=== PATIENT | male | born 1980 | race Two or more races ===

== ENCOUNTER 2024-02-29 02:51 | Emergency (ER) | payer MEDICAID, SELFPAY ==
[2024-02-29 02:52] VITALS: BMI 27.3
[2024-02-29 03:36] VITALS: BP 144/85; PULSE 97; RESP 18; TEMP 36.8; O2SAT 98
--- NOTE | 2024-02-29 03:52 | PD.EDEAR ---
ED Ear RME/HPI General Chief complaint: Ear Stated complaint: RIGHT EAR PAIN AND SWELLING Time Seen by Provider: 02/29/24 03:55 Source: patient Arrival date/time: 02/29/24 02:51 43-year-old male presents emergency department complaining of right ear pain and drainage for 3 days. Patient reports that hard of hearing right ear. Patient denies any fever, chills, sore throat, cough, or any other associated symptom. Mode of arrival: ambulatory Limitations: no limitations Related Data Home Medications ?Medication ?Instructions ?Recorded ?Confirmed metformin 1,000 mg tablet 1,000 mg PO BID #0 tabs 06/05/15 09/19/21 (Glucophage) insulin glargine 100 unit/mL 50 unit subcut QPM 11/08/18 09/19/21 subcutaneous solution (Lantus U-100 Insulin) sitagliptin phosphate 25 mg tablet 25 mg PO QDAY 11/08/18 09/19/21 (Januvia) Previous Rx's ?Medication ?Instructions ?Recorded ibuprofen 600 mg tablet 600 mg PO Q8H PRN fever or pain 12/10/23 #30 tabs amoxicillin 875 mg tablet 875 mg PO BID 5 days #10 tabs 02/29/24 ibuprofen 600 mg tablet 600 mg PO Q8H PRN pain #20 tabs 02/29/24 ofloxacin 0.3 % ear drops 10 drp otic (ear) QDAY 7 days #5 mL 02/29/24 Allergies Allergy/AdvReac Type Severity Reaction Status Date / Time No Known Allergies Allergy Verified 08/10/21 20:57 Review of Systems Review of Systems Systems Reviewed: All systems reviewed, normal except as documented Constitutional Constitutional: Reports system reviewed and no additional complaints, except as documented, Denies body ache(s), Denies chills and Denies fever(s) Eyes Eyes: Reports system reviewed and no additional complaints, except as documented and Denies change in vision ENT Ears, Nose, Mouth, and Throat: Reports system reviewed and no additional complaints, except as documented, Denies disequilibrium, Denies dizziness, Reports ear discharge, Reports otalgia, Denies sore throat and Denies vertigo Cardiovascular Cardiovascular: Reports system reviewed and no additional complaints, except as documented, Denies chest pain and Denies dyspnea Respiratory Respiratory: Reports system reviewed and no additional complaints, except as documented, Denies chest congestion, Denies cough and Denies dyspnea Gastrointestinal Gastrointestinal: Reports system reviewed and no additional complaints, except as documented, Denies abdominal pain, Denies nausea and Denies vomiting Musculoskeletal Musculoskeletal: Reports system reviewed and no additional complaints, except as documented, Denies abnormal gait and Denies arthralgias Integumentary/Breasts Skin/Breast: Reports system reviewed and no additional complaints, except as documented, Denies erythema, Denies rash and Denies wounds Neurologic Neurologic: Reports system reviewed and no additional complaints, except as documented, Denies abnormal gait, Denies disequilibrium, Denies dizziness and Denies vertigo Past Medical History Past Medical History CARDIAC: Negative Cardiac Disorders or Congestive Heart Failure RESPIRATORY: Negative Chronic Obstructive Pulmonary Disease (COPD) or Asthma GENITOURINARY: Negative Renal Disease ENDOCRINE: Positive Diabetes Mellitus Type 1 and Diabetes Mellitus Type 2 HEMATOLOGIC: Negative Sickle Cell Disease Social History SMOKING STATUS: Current every day smoker ED Exam General Limitations: Present no limitations General appearance: Present alert and in no apparent distress Head Head exam: Present atraumatic Eye Eye exam: Present normal appearance, PERRL and EOMI ENT ENT exam: Present normal exam, normal oropharynx and mucous membranes moist Expanded ENT Exam External ear exam: Present pain with movement and external tenderness TM/Canal exam: Right TM: erythema, bulging, canal discharge and canal tenderness Neck Neck exam: Present normal inspection, full ROM and trachea midline Chest Chest inspection: Present normal inspection and symmetric chest wall rise Respiratory Respiratory exam: Present normal lung sounds bilaterally Cardiovascular Cardiovascular exam: Present regular rate, normal rhythm and normal heart sounds Abdominal Exam Abdominal exam: Present soft and normal bowel sounds Extremities Exam Extremities exam: Present normal inspection and full ROM Back Exam Back exam: Present normal inspection and full ROM Neurological Exam Neurological exam: Present alert, oriented X3 and CN II-XII intact Psychiatric Psychiatric exam: Present normal affect and normal mood Skin Skin exam: Present warm, dry, intact and normal color Course Quality Measures none Orders Category Date Time Status Ketorolac Inj [Toradol Inj] Med 02/29/24 03:52 Discontinued 30 mg IM X1 ONE Vital Signs Vital signs: Vital Signs Temperature 98.2 F 02/29/24 03:36 Pulse Rate 97 02/29/24 03:36 Respiratory Rate 18 02/29/24 03:36 Blood Pressure 144/85 H 02/29/24 03:36 Pulse Oximetry (%) 98 02/29/24 03:36 Oxygen Delivery Method Room Air 02/29/24 03:36 98% room air within normal limits Ear MDM Narrative MDM Narrative:: 43-year-old male presents emergency department complaining of right ear pain and drainage for 3 days. Patient reports that hard of hearing right ear. Patient denies any fever, chills, sore throat, cough, or any other associated symptom. Patient appears nontoxic and is hemodynamic stable. ENT exam consistent with otitis externa and otitis media with tympanic membrane erythematous and bulging. Patient will be treated with oral and otic antibiotics. Patient given pain medication and instructed to follow-up with primary care provider for reevaluation of affected ear and 3 to 4 days. Patient data External records reviewed:: [facility] previous records Clinical information provided by:: patient Social determinants that could affect healthcare access:: none Patient has the following chronic illnesses:: See chart How is presenting disease/condition affected by chronic disease/condition?: uneffected by Evaluation data The following diagnostics were reviewed and interpreted by me:: other (specify) (n/a) Lab and/or radiology exams considered but not ordered:: N/A Interpretation Summary: n/a Medications / Prescriptions Medications or Prescriptions considered but not ordered:: Ordered Medication administrations:: Medication Administration History Discontinued Medications Ketorolac Tromethamine (Ketorolac Inj 60 Mg/2 Ml Vial) 30 mg IM X1 ONE Stop: 02/29/24 03:53 Last Admin: 02/29/24 04:11 Dose: 30 mg Documented By: EE given Consultations Consultation(s) initiated? (list below): No Diagnosis Ear Differential Diagnosis: otitis externa and otitis media Most likely diagnosis given after review of the tests above:: Otitis media Otitis externa Admission Indicated Admission indicated?: not indicated Admission Request Was there a request for admission?: No Disposition Plan Disposition Plan: Discharge Discharge Attestation Discharge Attestation: The patient and all family members were given an opportunity to ask questions and understood the discharge instructions. Discharge instructions specifically effects, indications for sooner follow up or return to the emergency department, and the expected course of current diagnosis. Patient condition: Stable Discharge Plan Plan Patient Disposition: HOME (Self Care) Disposition Comment: Stable Prescriptions/Referrals Prescriptions/Med Rec: New ofloxacin 0.3 % drops 10 drp otic (ear) QDAY 7 Days Qty: 5 0RF amoxicillin 875 mg tablet 875 mg PO BID 5 Days Qty: 10 0RF ibuprofen 600 mg tablet 600 mg PO Q8H PRN (Reason: pain) Qty: 20 0RF No Action metformin [Glucophage] 1,000 MG tablet 1,000 mg PO BID Qty: 0 insulin glargine [Lantus U-100 Insulin] 100 unit/mL Solution 50 unit SUBCUT QPM Januvia 25 mg Tablet 25 mg PO QDAY ibuprofen 600 mg tablet 600 mg PO Q8H PRN (Reason: fever or pain) Qty: 30 0RF Problem List Clinical Impression: Otitis externa, Otitis media Patient/Caregiver Discharge Instructions Discharge Activity: activity as tolerated Education Materials: Common Middle Ear Problems Additional Instructions: Take medication as prescribed. Take ibuprofen or Tylenol as needed for pain. Follow-up with primary care provider in 2 to 3 days for reevaluation of right ear. Return to emergency department for any worsening symptoms or as needed. Print Language: Irish Stand Alone Forms: Malena Award Info., Work/School Release, Patient Portal Info Letter PA/YULI Supervising Physician GE/YULI Supervising Physician: Dr. Mccarthy
[2024-02-29] MEDS: KETOROLAC INJ 60 MG/2 ML VIAL 30 MG IM (04:11)
== END 2024-02-29 04:14 | disposition home or self-care (01) ==
LOC: SERX 04:15
PROVIDERS: Emergency Provider Emergency Medicine; PCP Physician Assistant
DX: H60.91 Unspecified otitis externa, right ear (principal)
CPT/HCPCS: 96372; 99283; J1885

== ENCOUNTER 2024-04-01 07:25 | Emergency (ER) | payer MEDICAID, SELFPAY ==
[2024-04-01 07:36] VITALS: BP 159/93; PULSE 114; RESP 18; TEMP 37.7; O2SAT 97; BMI 26.5
--- NOTE | 2024-04-01 07:51 | PD.EDRME ---
Rapid Medical Screening Exam RME Arrival date/time: 04/01/24 07:25 This is a 43-year-old male that comes in with complaints of left flank pain left lower abdominal pain. Patient also complains of some dysuria. Patient reports that he was recently seen here for ear infection and URI symptoms. Patient states that is better. Patient reports a history of diabetes and high blood pressure. I have greeted and performed a focused initial assessment of this patient. Initial appropriate labs ordered at this time. A comprehensive ED assessment and evaluation of the patient and analysis of all test and completion of medical decision making process will be conducted by additional ED provider. Chief Complaint: Back Pain/Injury Time Seen by Provider: 04/01/24 07:30 Vital signs: Vital Signs Temperature 99.8 F 04/01/24 07:36 Pulse Rate 114 H 04/01/24 07:36 Respiratory Rate 18 04/01/24 07:36 Blood Pressure 159/93 H 04/01/24 07:36 Pulse Oximetry (%) 97 04/01/24 07:36 Oxygen Delivery Method Room Air 04/01/24 07:36
[2024-04-01] MEDS: ONDANSETRON ODT 4 MG TABRAP PO (08:11)
[2024-04-01] MEDS: KETOROLAC INJ 60 MG/2 ML VIAL IM (08:13)
[2024-04-01 08:59] LABS: Collection Type, Urine Voided; Squamous Epithelial Cell,Urine 0 /hpf (0-5)
[2024-04-01 08:59] LABS: Alanine Aminotransferase 18 U/L (10-49); Albumin/Globulin Ratio 1.4 (1.2-2.2); Alkaline Phosphatase 62 U/L (46-116); Anion Gap 9 (7-16); Aspartate Amino Transferase 17 U/L (0-34); BUN/Creatinine Ratio 13 Ratio (12-20); Bilirubin,Total 0.3 mg/dL (0.3-1.2); Blood Urea Nitrogen 10 mg/dL (9-23); Calcium 9.4 mg/dL (8.3-10.6); Calcium (Corrected) 9.4 mg/dL (8.5-10.1); Carbon Dioxide 26.3 mMol/L (20.0-31.0); Chloride 105 mMol/L (98-107); Creatinine (Component) 0.8 mg/dL (0.6-1.3); Estimated Creatinine Clearance 96.8 mL/min (>60); Globulin 2.8 gm/dL (2.3-3.5); Glucose 190 mg/dL (74-106); Lipase 39 U/L (12-53); Osmolality,Calculated 283 (275-295); Potassium 4.1 mMol/L (3.4-5.1); Sodium 140 mMol/L (136-145); Total Protein 6.8 gm/dL (5.7-8.2); eGFR > 60 See Note
[2024-04-01 09:03] LABS: Basophils # (Auto) 0.1 Thou/mm3 (0.0-0.2); Basophils % (Auto) 1 % (0-2.5); Eosinophils % (Auto) 13 % (0-10); Hematocrit 41.7 % (41.0-53.0); Hemoglobin 14.2 g/dL (13.5-16.0); Immature Granulocytes % (Auto) 0 % (0-0); Immature Granulocytes Auto 0.02 Thou/mm3 (0.00-0.00); Lymphocytes # (Auto) 2.1 Thou/mm3 (1.0-4.8); Lymphocytes % (Auto) 29 % (10-50); Mean Corpuscular HGB Conc 34.1 g/dl (31.0-37.0); Mean Corpuscular Hemoglobin 24.8 pg (25.0-35.0); Mean Corpuscular Volume 73 fL (80-100); Monocytes # (Auto) 0.8 Thou/mm3 (0.0-0.8); Monocytes % (Auto) 10 % (0-12); Neutrophils # (Auto) 3.4 Thou/mm3 (1.8-7.7); Neutrophils % (Auto) 47 % (37-80); Nucleated Red Blood Cell % 0 /100 WBC (0); Platelet Count 344 Thou/mm3 (140-440); RDW Standard Deviation 32.4 fL (35.1-43.9); Red Blood Count 5.73 Miln/mm3 (4.50-5.90); White Blood Count 7.3 Thou/mm3 (3.8-10.6)
[2024-04-01 11:02] LABS: Bilirubin,Urine Negative (Negative); Blood,Urine Negative (Negative); Clarity,Urine Clear (Clear/Hazy); Color,Urine Lt-Yellow (Lt Yel-Yel); Culture Indicated,Urine Not Indicated; Glucose, Urine 3+ (Negative); Ketones,Urine Negative (Negative); Leukocyte Esterase,Urine Negative (Negative); Nitrite,Urine Negative (Negative); PH,Urine 5.5 (5.0-7.0); Protein,Urine Trace (Neg - Trace); RBC,Urine 3 /hpf (0-3); Specific Gravity,Urine 1.023 (1.001-1.035); Urobilinogen,Urine Negative mg/dL (0.0-1.0); WBC,Urine 1 /hpf (0-5)
[2024-04-01 11:48] VITALS: BP 110/75; PULSE 90; RESP 17; TEMP 36.4; O2SAT 97
--- NOTE | 2024-04-01 12:02 | XR_ITS ---
Examination: CT abdomen with intravenous contrast CT pelvis with intravenous contrast 2-D coronal reconstructions 2-D sagittal reconstructions Date and time of exam:April 01, 2024 1247 hrs. Indications: Left flank pain beginning 2 days ago. CTDI: vol (mGy) 12.40 DLP: (mGycm) 545 Technique: Multiple axial sections of the abdomen and pelvis have been obtained. 64 slice high-resolution scanner used. 3 mm axial sections have been obtained, post intravenous injection 60 cc [id number] 2-D sagittal, coronal reconstructions obtained. Low dose protocols were performed. One or more of the following dose reduction techniques were used; automated exposure control, adjustment of the mA and/or KV according to patient size, use of iterative reconstruction technique. Findings: Pneumonia left base with mild to moderate left pleural fluid Fatty infiltration throughout the liver Contracted gallbladder No pancreatic or adrenal mass Multiple 1 to 2 mm right renal calculi, no hydronephrosis or ureteral calculi, 1 mm left renal calculus Aorta normal size No bowel obstruction Normal appendix No diverticulitis No significant prostatomegaly Urinary bladder wall is thickened up to 6 mm no bladder calculi Moderate osteopenia Impression: Tiny bilateral renal calculi, no hydronephrosis or ureteral calculi Normal appendix Thickened urinary bladder wall, cystitis pattern
--- NOTE | 2024-04-01 12:03 | PD.EDABDPN ---
ED Abdominal Pain RME/HPI General Chief Complaint: Back Pain/Injury Stated complaint: LEFT FLANK PAIN Time seen by provider: 04/01/24 07:30 Arrival date/time: 04/01/24 07:25 RME / HPI RME / HPI narrative: 43-year-old male patient with significant history of hypertension diabetes mellitus, came in for evaluation regarding left lower quadrant pain radiating to the left flank area, described as dull ache, severity moderate. Patient denies any fever denies any vomiting denies any hematuria frequency diarrhea or constipation. Pain has been ongoing for the last 2 days. No medication was taken prior travel. Related Data Home Medications ?Medication ?Instructions ?Recorded ?Confirmed metformin 1,000 mg tablet 1,000 mg PO BID #0 tabs 06/05/15 09/19/21 (Glucophage) insulin glargine 100 unit/mL 50 unit subcut QPM 11/08/18 09/19/21 subcutaneous solution (Lantus U-100 Insulin) sitagliptin phosphate 25 mg tablet 25 mg PO QDAY 11/08/18 09/19/21 (Januvia) Previous Rx's ?Medication ?Instructions ?Recorded ibuprofen 600 mg tablet 600 mg PO Q8H PRN fever or pain 12/10/23 #30 tabs ibuprofen 600 mg tablet 600 mg PO Q8H PRN pain #20 tabs 02/29/24 ketorolac 10 mg tablet 10 mg PO Q8H PRN pain 5 days #20 04/01/24 tabs Allergies Allergy/AdvReac Type Severity Reaction Status Date / Time No Known Allergies Allergy Verified 04/01/24 07:31 Review of Systems Review of Systems Narrative Review of Systems: Review of system reviewed and within normal limits except mentioned in HPI ED Exam Narrative Physical exam: VITAL SIGNS: Reviewed. GENERAL APPEARANCE: Alert and interactive, follows commands, no acute distress, HEAD AND FACE: Non-traumatic. ENT: PERRL, pink conjunctivitis, eyelid no trauma, Mucous membrane moist. NECK: Supple, nontender, no nuchal rigidity. CHEST: No tenderness, no crepitus, no paradoxical movement, no retractions. LUNGS: Clear, well ventilated, symmetric, no rales, no wheezing, no ronchi, no stridor, good breath sounds bilaterally. HEART: Regular rate, regular rhythm, no murmur, no gallops. ABDOMEN: Soft, positive bowel sounds, nondistended, no guarding, left lower quadrant tenderness, left flank tenderness, no rebound, no masses, RECTAL: Deferred. GENITAL: Deferred. NEUROLOGICAL: Gross motor function intact sensory function intact, Appropriate for age. MUSCULOSKELETAL: low back nontender, full range of motion. EXTREMITIES: Nontender, full range of motion. SKIN: Color pink, dry, no rash, no lacerations, no abrasions, no contusions. LYMPHATICS: Deferred. Course Quality Measures none Orders Category Date Time Status CT Screening NOW Care 04/01/24 12:[address] abdomen pelvis w con Stat Exams 04/01/24 12:02 Completed CBC Stat Lab 04/01/24 08:25 Completed Comprehensive Metabolic Panel Stat Lab 04/01/24 08:25 Completed Lipase Stat Lab 04/01/24 08:25 Completed Urinalysis, C/S if Indicated Stat Lab 04/01/24 08:44 Completed HYDROcodone*/APAP 5/325 [[place] 5/325] Med 04/01/24 15:05 Discontinued 1 tab PO X1 ONE Ketorolac Inj [Toradol Inj] Med 04/01/24 07:51 Discontinued 60 mg IM X1 ONE Ondansetron Odt [Zofran Odt] Med 04/01/24 07:51 Discontinued 4 mg PO X1 ONE Vital Signs Vital signs: Vital Signs Temperature 99.8 F 04/01/24 07:36 Pulse Rate 114 H 04/01/24 07:36 Respiratory Rate 18 04/01/24 07:36 Blood Pressure 159/93 H 04/01/24 07:36 Pulse Oximetry (%) 97 04/01/24 07:36 Oxygen Delivery Method Room Air 04/01/24 07:36 Abdominal Pain MDM MDM Narrative MDM Narrative:: 43-year-old male patient with significant history of hypertension diabetes mellitus, came in for evaluation regarding left lower quadrant pain radiating to the left flank area, described as dull ache, severity moderate. Patient denies any fever denies any vomiting denies any hematuria frequency diarrhea or constipation. Pain has been ongoing for the last 2 days. No medication was taken prior travel. Patient's laboratory workup all came back normal urinalysis no UTI no hematuria. CT scan of the abdomen and pelvis showed tiny calculi noticed no obstruction no hydronephrosis noted results discussed with the patient. Patient was given Toradol and [place] with complete to his most showed of symptoms. Patient appears nontoxic and hemodynamically stable. Patient discharged home and instructed to follow-up with primary care provider in 24 to 48 hours. Instructed to return to the emergency department immediately if worsening of symptoms Patient data External records reviewed:: None Clinical information provided by:: none Social determinants that could affect healthcare access:: none Patient has the following chronic illnesses:: Hypertension diabetes mellitus How is presenting disease/condition affected by chronic disease/condition?: exacerbated by Evaluation data The following diagnostics were reviewed and interpreted by me:: lab results and radiology exam(s) Lab and/or radiology exams considered but not ordered:: None Interpretation Summary: See results in MDM Medications / Prescriptions Medications or Prescriptions considered but not ordered:: None Medication administrations:: Medication Administration History Discontinued Medications Hydrocodone Bitart/Acetaminophen (Hydrocodone/Apap 5/325 Tablet) 1 tab PO X1 ONE Stop: 04/01/24 15:06 Ketorolac Tromethamine (Ketorolac Inj 60 Mg/2 Ml Vial) 60 mg IM X1 ONE Stop: 04/01/24 07:52 Last Admin: 04/01/24 08:13 Dose: 60 mg Documented By: ED Ondansetron HCl (Ondansetron Odt 4 Mg Tabrap) 4 mg PO X1 ONE; Protocol Stop: 04/01/24 07:52 Last Admin: 04/01/24 08:11 Dose: 4 mg Documented By: ED Tejas Boo and Greyson Consultations Consultation(s) initiated? (list below): No Diagnosis Differential diagnosis abdominal pain: abdominal pain, calculus of kidney and pancreatitis Most likely diagnosis given after review of the tests above:: Renal colic, tiny calculi renal Admission Indicated Admission indicated?: not indicated Admission Request Was there a request for admission?: No Disposition Plan Disposition Plan: Admit Discharge Plan Plan Patient Disposition: HOME (Self Care) Disposition Comment: stable Prescriptions/Referrals Prescriptions/Med Rec: New ketorolac 10 mg tablet 10 mg PO Q8H PRN (Reason: pain) 5 Days Qty: 20 0RF No Action metformin [Glucophage] 1,000 MG tablet 1,000 mg PO BID Qty: 0 insulin glargine [Lantus U-100 Insulin] 100 unit/mL Solution 50 unit SUBCUT QPM Januvia 25 mg Tablet 25 mg PO QDAY ibuprofen 600 mg tablet 600 mg PO Q8H PRN (Reason: fever or pain) Qty: 30 0RF ibuprofen 600 mg tablet 600 mg PO Q8H PRN (Reason: pain) Qty: 20 0RF Referrals: César Vasquez PA-C [Primary Care Provider] - In 1 week Problem List Clinical Impression: Renal colic, Calculus, renal Patient/Caregiver Discharge Instructions Discharge Activity: activity as tolerated Education Materials: ED Kidney Stone w/ Colic Additional Instructions: Thank you for the opportunity for serving you today. You are stable for discharged . You are advised to: Follow-up with your PCP in 1 to 2 days and as per referral to urologist Return to ED for worsening of symptoms Increase oral fluids Take medication as prescribed Print Language: Bangladeshi Stand Alone Forms: Malena Award Info., Patient Portal Info Letter GE/YULI Supervising Physician BRUCE Supervising Physician: MD Gemma
[2024-04-01 12:24] VITALS: BP 111/76; PULSE 80; RESP 20; TEMP 36.2; O2SAT 95
[2024-04-01 15:10] VITALS: BP 111/76; PULSE 92; RESP 17; TEMP 36.4; O2SAT 97
== END 2024-04-01 15:23 | disposition home or self-care (01) ==
PROVIDERS: Nurse Practitioner Family; Emergency Provider Emergency Medicine; PCP Physician Assistant
DX: N20.0 Calculus of kidney (principal); I10 Essential (primary) hypertension; E11.9 Type 2 diabetes mellitus without complications
CPT/HCPCS: 36415; 74177; 80053; 81001; 83690; 85025; 96372; 99285; A4649; J1885; Q0162; Q9967

== ENCOUNTER 2024-05-01 06:40 | Emergency (ER) | payer MEDICAID, SELFPAY ==
[2024-05-01] VITALS (8 sets, daily range): BP systolic 122–159; BP diastolic 71–96; PULSE 87–100; RESP 16–25; TEMP 36.6–36.9; O2SAT 96–100; BMI 29.2
--- NOTE | 2024-05-01 | XR_ITS ---
Examination: AP chest single view Technique one AP upright portable chest single view Exam date and time: May 01, 2024 1137 hours Comparison May 01, 2024 0712 hours INDICATIONS: Postthoracentesis. FINDINGS: Marked decrease in left pleural fluid Significant pneumonia left base Right lung clear Normal heart size IMPRESSION: No pneumothorax post thoracentesis Significant pneumonia left base
--- NOTE | 2024-05-01 | XR_ITS ---
Examination: MRI of brain without intravenous contrast. MRI brain with intravenous contrast. Date and time of exam:May 01, 2024 1608 hours INDICATIONS: Bilateral ear pain 2 months with drainage, diagnosis sarcoidosis Technique: Multiple axial and sagittal images of the brain to been obtained. Siemens high-resolution 1.52 January short bore scanner utilized. Sagittal sections, T1 weighted images, TR 500, TE 14, are performed. Axial sections proton-density and T2-weighted images have been obtained. Inversion recovery axial images, TR 9260, TE 111, TR 2500. Diffusion weighted images, axial sections, TR 4800, TE 128, B value 1000. Axial sections, ADC map, TR 4800, TE 128. Axial and coronal images were also obtained post 13 cc gadolinium administered intravenously. Findings:: Enlargement of the sella turcica is not present. The optic chiasm and infundibular stalk are not remarkable. There is no localized enlargement of the medulla or miki. Fourth ventricle and cerebellar tonsils appear normal in position. No subacute area of hemorrhage density is seen. Fourth ventricle is midline. Mass in the cerebellopontine angle region is not evident. 7th and 8th nerve complexes exhibit symmetry Globes are symmetrical Orbital musculature including medial lateral rectus muscles do not exhibit abnormality Increased white matter signal is not seen Effacement of the cortical sulcal markings is not identified. Mass effect upon the ventricular system is not identified. Diffusion-weighted images demonstrate no focus of restricted diffusion Contrast images demonstrate minimal right mastoid enhancement Impression: Negative for acute hemorrhage, mass effect or midline shift No acute infarct No MR findings of demyelinating disease Right mastoiditis Given the patient's presentation, consider CT scan middle inner ear follow-up to best assess for right otitis media, acquired right cholesteatoma
--- NOTE | 2024-05-01 06:57 | XR_ITS ---
Examination: PA lateral chest 2 views Technique: Upright PA lateral chest 2 views Exam date and time: April 27, 2024 at 0712 hrs. Comparison December 10, 2023 Indications: Shortness of breath chest pain beginning one month ago. Findings: Large left pleural effusion Cardiac contour is partially obscured by this effusion Pneumonia and atelectasis in the left mid and lower lung zone Right lung clear Impression: Large left pleural effusion
--- NOTE | 2024-05-01 06:58 | EDRME_ITS ---
Rapid Medical Screening Exam [facility] Arrival date/time: 05/01/24 06:40 43-year-old male with a history of sarcoidosis, type 2 diabetes presents to the emergency room with a chief complaint of cough and shortness of breath x 1 month. Patient states he has not seen a specialist due to a lack of appointments and has not took his medication for this. Patient states he also has bilateral ear pain and drainage but states he is waiting for his appointment from his ENT specialist. I have greeted and performed a focused initial assessment of this patient. A comprehensive ED assessment and evaluation of the patient, analysis of all test results, and completion of the medical decision making process will be conducted by additional ED providers. Chief Complaint: Flu Like Symptoms Time Seen by Provider: 05/01/24 06:45 Vital signs: Vital Signs Temperature 98.0 F 05/01/24 06:47 Pulse Rate 100 05/01/24 06:47 Respiratory Rate 20 05/01/24 06:47 Blood Pressure 157/91 H 05/01/24 06:47 Pulse Oximetry (%) 98 05/01/24 06:47 Oxygen Delivery Method Room Air 05/01/24 06:47 Vital signs reviewed by provider: Yes
--- NOTE | 2024-05-01 07:00 | EKG_ITS ---
[facility] Test Date: 2024-05-01 Pat Name: TIBURCIO DEL ROSARIO Department: Room: - Gender: Male Bottom Liner: : 1980 Requested By: Robbie Manzo Order Number: [id number] Reading MD: Robbie Manzo Measurements Intervals [place] Rate: 103 P: 57 NC: 122 QRS: 56 QRSD: 72 T: 43 QT: 316 QTc: 415 Interpretive Statements SINUS TACHYCARDIA ABNORMAL RHYTHM ECG Compared to ECG 09/19/2021 16:01:34 Short NC interval no longer present /store/S0/[id number]/ecg/[id number].pdf
[2024-05-01 08:14] LABS: Basophils # (Auto) 0.1 Thou/mm3 (0.0-0.2); Basophils % (Auto) 1 % (0-2.5); Eosinophils # (Auto) 0.8 Thou/mm3 (0.0-0.5); Eosinophils % (Auto) 12 % (0-10); Hematocrit 38.5 % (41.0-53.0); Immature Granulocytes % (Auto) 0 % (0-0); Immature Granulocytes Auto 0.01 Thou/mm3 (0.00-0.00); Lymphocytes # (Auto) 2.1 Thou/mm3 (1.0-4.8); Lymphocytes % (Auto) 31 % (10-50); Mean Corpuscular HGB Conc 33.8 g/dl (31.0-37.0); Mean Corpuscular Hemoglobin 25.2 pg (25.0-35.0); Mean Corpuscular Volume 75 fL (80-100); Monocytes % (Auto) 14 % (0-12); Neutrophils # (Auto) 2.7 Thou/mm3 (1.8-7.7); Neutrophils % (Auto) 41 % (37-80); Nucleated Red Blood Cell % 0 /100 WBC (0); Platelet Count 295 Thou/mm3 (140-440); RDW Standard Deviation 35.8 fL (35.1-43.9); Red Blood Count 5.16 Miln/mm3 (4.50-5.90); White Blood Count 6.6 Thou/mm3 (3.8-10.6)
[2024-05-01 08:35] LABS: Alanine Aminotransferase 15 U/L (10-49); Albumin, Serum 3.8 gm/dL (3.5-5.0); Albumin/Globulin Ratio 1.4 (1.2-2.2); Alkaline Phosphatase 64 U/L (46-116); Anion Gap 7 (7-16); Aspartate Amino Transferase < 10 U/L (0-34); BUN/Creatinine Ratio 17 Ratio (12-20); Bilirubin,Total 0.4 mg/dL (0.3-1.2); Blood Urea Nitrogen 17 mg/dL (9-23); Calcium 9.2 mg/dL (8.3-10.6); Calcium (Corrected) 9.4 mg/dL (8.5-10.1); Carbon Dioxide 26.7 mMol/L (20.0-31.0); Chloride 104 mMol/L (98-107); Estimated Creatinine Clearance 77.9 mL/min (>60); Globulin 2.8 gm/dL (2.3-3.5); Glucose 174 mg/dL (74-106); Osmolality,Calculated 281 (275-295); Partial Thromboplastin Time 30.5 Seconds (22.0-36.0); Potassium 4.3 mMol/L (3.4-5.1); Prothrombin Time 11.2 Seconds (9.0-12.2); Sodium 138 mMol/L (136-145); Total Protein 6.6 gm/dL (5.7-8.2); Troponin I < 0.002 ng/mL (0.0-0.045); eGFR > 60 See Note
[2024-05-01 08:59] LABS: B-Type Natriuretic Peptide < 20 pg/mL (0-100)
--- NOTE | 2024-05-01 09:35 | XR_ITS ---
Examination: Ultrasound-guided left thoracentesis Ultrasound right hemithorax Ultrasound left hemithorax Exam date and time: May 01, 2024 1202 hours INDICATIONS: Difficulty breathing today, large left pleural effusion on chest x-ray today TECHNIQUE AND FINDINGS: High resolution grayscale sonographic images hemithoraces, large left pleural effusion Informed consent provided. Timeout performed. Skin prepped over the left hemithorax and sterile drape applied maximum sterile barrier technique hand hygiene ultrasound sterile technique 1% lidocaine administered for local anesthesia. Utilizing ultrasonographic guidance 5 Armenian catheter placed in the left pleural space, 1450 cc fluid withdrawn Estimated blood loss 0 cc IMPRESSION: Successful ultrasound-guided left thoracentesis, 1450 cc pleural fluid removed
--- NOTE | 2024-05-01 09:41 | XR_ITS ---
Examination: CT chest with intravenous contrast CT abdomen with intravenous contrast CT pelvis with intravenous contrast 2-D coronal and sagittal reconstructions Time of exam: May 01, 2024 1421 hours Comparison April 01, 2024 INDICATIONS: Difficulty breathing coughing shortness of breath one month CTDI: vol (mGy) : 5.91 DLP: (mGycm): 454 Technique: Multiple axial images of the chest, abdomen and pelvis with intravenous contrast, 3.0 mm slice thickness. Images obtained post intravenous injection Isovue 370 60 cc. 2-D sagittal and coronal reconstructions. Low dose protocols were performed. One or more of the following dose reduction techniques were used; automated exposure control, adjustment of the mA and/or KV according to patient size, use of iterative reconstruction technique. Findings: Mediastinal lymphadenopathy, smaller lymph nodes in the tracheobronchial region compared to the prior study No thoracic aortic aneurysm dilatation No pulmonary artery filling defects Diffuse significant left lung pneumonia Small left pleural effusion No visualized liver or splenic lesion No gallstones No pancreatic or adrenal mass Bilateral subcentimeter renal calculi Aorta in the abdomen normal size No bowel obstruction Normal appendix No diverticulitis Urinary bladder intact No prostatomegaly Mild osteopenia IMPRESSION: Decrease in mediastinal lymphadenopathy compared to the CT chest September 19, 2021 Extensive diffuse left lung pneumonia Bilateral nonobstructing renal calculi
[2024-05-01] MEDS: SODIUM CHLORIDE 0.9% 1000 ML 1,500 ML 1500 ML IV (10:23)
--- NOTE | 2024-05-01 11:50 | EDNOTE_ITS ---
ED SOB =RME/HPI General Chief Complaint: Shortness of Breath/Dyspnea Stated Complaint: COUGH, EAR PAIN Time Seen by Provider: 05/01/24 06:45 Arrival date/time: 05/01/24 06:40 RME / HPI RME / HPI Narrative: 05/01/24 06:40 43-year-old male with a history of sarcoidosis, type 2 diabetes presents to the emergency room with a chief complaint of cough and shortness of breath x 1 month. Patient states he has not seen a specialist due to a lack of appointments and has not took his medication for this. Patient states he also has bilateral ear pain and drainage but states he is waiting for his appointment from his ENT specialist. I have greeted and performed a focused initial assessment of this patient. A comprehensive ED assessment and evaluation of the patient, analysis of all test results, and completion of the medical decision making process will be conducted by additional ED providers. DR. WHITE MAIN ED EVALUATION 43 year old male with history of sarcoidosis and diabetes presents to the ED for evaluation of shortness of breath today. Reportedly his symptoms began 1 month ago and gradually worsening. Today described feeling he is not able to get a deep breath in. Accompanied by a cough. Denies fevers, chills, chest pain, abdominal pain, n/v, or other associated symptoms. Related Data Home Medications ?Medication ?Instructions ?Recorded ?Confirmed metformin 1,000 mg tablet 1,000 mg PO BID #0 tabs 04/2 0/16 09/19/21 (Glucophage) insulin glargine 100 unit/mL 50 unit subcut QPM 09/19/21 subcutaneous solution (Lantus U-100 Insulin) sitagliptin phosphate 25 mg tablet 25 mg PO QDAY 11/0809/19/21 (Januvia) Previous Rx's ?Medication ?Instructions ?Recorded ibuprofen 600 mg tablet 600 mg PO Q8H PRN fever or p ain 12/10/23 #30 tabs ibuprofen 600 mg tablet 600 mg PO Q8H PRN pain #20 t abs 02/29/24 acetaminophen 325 mg tablet 650 mg (2 x 325 mg) PO TID PRN 05/01/24 (Tylenol) pain 7 days #30 tabs albuterol sulfate 90 mcg/actuation 2 puff inhalation Q 6H PRN cough 5 05/01/24 aerosol inhaler days #8.5 grams amoxicillin 875 mg-potassium 1 tab PO BID 7 days #14 t abs 05/01/24 clavulanate 125 mg tablet doxycycline hyclate 100 mg capsule 100 mg PO BID #14 c aps 05/01/24 fluconazole 200 mg tablet 400 mg (2 x 200 mg) PO QDAY 45 05/01/24 days #90 tabs Allergies Allergy/AdvReac Type Severity Reaction Status Date / Time No Known Allergies Allergy Verified 04/01/24 07:31 Review of Systems Review of Systems Narrative Review of Systems: Gen: No fever, no chills, no weight loss EYES: No discharge, no visual changes, no pain HEENT: No ear pain, no congestion, no sore throat PULM: +shortness of breath, + cough CV: No chest pain, no dyspnea on exertion, no palpitations GI: No nausea, no vomiting, no diarrhea, no pain, no constipation : No frequency, no urgency,? no dysuria Musc/skel: No joint pain, no back pain Skin: No rash. Neuro: No weakness, no headache Past Medical History Past Medical History CARDIAC: Positive Hypertension; Negative Cardiac Disorders or Congestive Heart Failure RESPIRATORY: Negative Chronic Obstructive Pulmonary Disease (COPD) or Asthma GENITOURINARY: Negative Renal Disease ENDOCRINE: Positive Diabetes Mellitus Type 2; Negative Diabetes Mellitus Type 1 HEMATOLOGIC: Negative Sickle Cell Disease Social History SMOKING STATUS: Never smoker ED Exam Narrative Physical exam: GENERAL: In general the patient is awake, interactive, in an emergency department gurney, coughing, not in respiratory distress. HEAD/EYES/EARS/NOSE/THROAT: normo-cephalic, atraumatic, mucus membranes are moist.? No cervical tenderness palpation midline.? Supple neck. CARDIOVASCULAR: regular rate and regular rhythm, no murmurs, heart sounds are not distant, strong pulses in all four extremities that are equal and symmetric bilateral upper and lower extremities, normal capillary refill. CHEST/PULMONARY: normal chest rise and fall, no subcutaneous emphysema, decreased breath sounds on the left, good airway movement on the right, normal inspiratory to expiratory ratios without evidence of respiratory distress. ABDOMEN: soft, not tender, no masses appreciated BACK: normal range of motion without pain. NEUROLOGICAL: cranio-facial features are symmetric, moves all four extremities equally without obvious limitations or weakness. EXTREMITY: no tenderness to palpation over the long bones or large joints of the bilateral upper and lower extremities, no joint swelling, no joint erythema, no signs of trauma, no unilateral leg swelling and no peripheral edema. SKIN: warm, dry, well-perfused, no jaundice, no rash, no telangiectasias or petechia. PSYCH: calm, cooperative, no evidence of psychosis or agitation Course Course Course Narrative: chest xray ordered to help determine etiology of shortness of breath. Quality Measures none Orders Category Date Time Status Bedside COVID-19 Antigen Test NOW Care 05/01/24 13:05 Active Bedside Influenza A&B Antigen Test NOW Care 05/01/24 13:[address] Screening NOW Care 05/01/24 09:42 Active EKG (ED ONLY) *Do not use* NOW Care 05/01/24 07:00 Completed Insert IV NOW Care 05/01/24 10:02 Active MRI Screening NOW Care 05/01/24 15:[address] chest abdomen pelvis w Stat Exams 05/01/24 09:41 Completed EKG (ED Only) Stat Exams 05/01/24 07:00 Draft MR head/brain wo/w con Stat Exams 05/01/24 Completed US thoracentesis Stat Exams 05/01/24 09:35 Completed XR chest 1V post procedure Stat Exams 05/01/24 Completed XR chest 2V Stat Exams 05/01/24 06:57 Completed Amylase,Pleural Fluid Stat Lab 05/01/24 13:17 Completed BNP [B-Type Natriuretic Peptide] Stat Lab 05/01/24 07:55 Completed CBC Stat Lab 05/01/24 07:55 Completed CMP [Comprehensive Metabolic Panel] Stat Lab 05/01/24 07:55 Completed Cocci Serology IgM with reflex to IgG [Cocci Serology, Lab 05/01/24 07:55 Completed Unk History] Stat Cocid Sro, CF/ID (UCD) NO CHG* Routine Lab 05/01/24 14:18 Received Glucose,Pleural Fluid Stat Lab 05/01/24 13:17 Completed LDH,Pleural Fluid Stat Lab 05/01/24 13:17 Completed PT [Prothrombin Time with INR] Stat Lab 05/01/24 07:55 Completed PTT [Partial Thromboplastin Time] Stat Lab 05/01/24 07:55 Completed Pleural Fld Cell Count Diff Stat Lab 05/01/24 13:17 Completed Protein Total,Pleural Fluid Stat Lab 05/01/24 13:17 Completed RSV [Respiratory Syncytial Virus Ag] Stat Lab 05/01/24 13:05 Ordered Troponin I Stat Lab 05/01/24 07:55 Completed Albuterol/Ipratr Rt Sanjuana [Duoneb Rt Sanjuana] Med 05/01/24 13:19 Discontinued 3 ml INH X1 ONE DiphenhydrAMINE INJ [Benadryl Inj] Med 05/01/24 17:08 Discontinued 25 mg IVP X1 ONE Fluconazole [Diflucan] Med 05/01/24 16:10 Discontinued 400 mg PO X1 ONE HYDROcodone*/APAP 5/325 [[place] 5/325] Med 05/01/24 14:56 Discontinued 1 tab PO X1 ONE Lidocaine 1% Pf 30 ml [Xylocaine 1% Pf 30 ml] Med 05/01/24 12:07 Discontinued 30 ml .ROUTE .STK-MED ONE MethylPREDNISolone.* [SoluMEDROL Inj] Med 05/01/24 17:09 Discontinued 125 mg IVP X1 ONE Morphine Inj Med 05/01/24 13:19 Discontinued 4 mg IVP X1 ONE Ondansetron Inj [Zofran Inj] Med 05/01/24 13:19 Discontinued 4 mg IV X1 ONE Sodium Chloride 0.9% 1000 ml [Ns] 1,000 ml Med 05/01/24 13:42 Discontinued IV 999 mls/hr Sodium Chloride 0.9% 1000 ml [Ns] 1,500 ml Med 05/01/24 09:32 Discontinued IV 1,500 mls/hr predniSONE Med 05/01/24 06:57 Discontinued 80 mg PO X1 ONE Reevaluation(s) Reevaluation #1: I spoke with patient and family. We reviewed all the results, analysis, and treatment plans. Time: 12:45 Reevaluation #2: I spoke with patient and family. We reviewed all the results, analysis, and treatment plans. Patient is amenable to discharge. Strict return precautions were outlined. Patient was discharged in stable condition. Time: 17:26 Vital Signs Vital signs: Vital Signs Temperature 98.0 F 05/01/24 06:47 Pulse Rate 100 05/01/24 06:47 Respiratory Rate 20 05/01/24 06:47 Blood Pressure 157/91 H 05/01/24 06:47 Pulse Oximetry (%) 98 05/01/24 06:47 Oxygen Delivery Method Room Air 05/01/24 06:47 Pulse ox is 98% on room air which is adequate. Shortness of Breath / Dyspnea MDM Narrative MDM Narrative:: I, Elena Mandel, am scribing for and in the presence of Dr. White. 43-year-old male presenting to the emergency department with dyspnea over 6 weeks. Also complaining of cough and chills. Patient reports that he has a history of sarcoidosis and gets followed in [place] by family life counselor. While in the emergency department the patient noted to have a left large pleural effusion otherwise not hypotensive, white count is 6.6 and platelets normal. His INR is normal. Electrolytes are reviewed and interpreted by me. Electrolytes are normal to include creatinine. Glucose is slightly elevated at 174. No evidence of DKA. The patient had a thoracentesis done via ultrasound by radiology Dr. Marie. Pleural effusion would color is yellow. White count is 3936, RBCs 4000, 13% WBCs. 87% [place] nuclear white blood cells, total protein 5.1, LDH 137, glucose 118, and amylase 43. Patient noted to have positive Coccidioides IgM which is likely secondary to [place] fever. This is is going to be not goodhistory of Lung mass back in [address] chest of abdomen pelvis and chest are obtained: IMPRESSION: Decrease in mediastinal lymphadenopathy compared to the CT chest September 19, 2021 Extensive diffuse left lung pneumonia Bilateral nonobstructing renal calculi patient did return from MRI and had some hives on his shoulders. He was then given the fluconazole so he is not allergic to fluconazole. MRI results are pending. His MRIs back Patient data External records reviewed:: [facility] previous records (I reviewed ED visit from 04/01/2024 ) Clinical information provided by:: patient Social determinants that could affect healthcare access:: none Patient has the following chronic illnesses:: sarcoidosis and diabetes How is presenting disease/condition affected by chronic disease/condition?: exacerbated by Evaluation data The following diagnostics were reviewed and interpreted by me:: lab results, radiology exam(s) and EKG tracing(s) (sinus rhythm, rate 103, no acute ST or T- wave changes, no depression, no STEMI) Lab and/or radiology exams considered but not ordered:: None Interpretation Summary: Ordering Physician: Robbie De León Date of Service: 05/01/24 Procedure(s): XR chest 2V Accession Number(s): [id number] cc: Robbie De León; César Vasquez PA-C; Kvng Eaton MD~ Examination: PA lateral chest 2 views Technique: Upright PA lateral chest 2 views Exam date and time: April 27, 2024 at 0712 hrs. Comparison December 10, 2023 Indications: Shortness of breath chest pain beginning one month ago. Findings: Large left pleural effusion Cardiac contour is partially obscured by this effusion Pneumonia and atelectasis in the left mid and lower lung zone Right lung clear Impression: Large left pleural effusion Dictated By: Kvng Eaton MD Signed By: <Electronically signed by Kvng Eaton MD in OV>05/01/24 0728 Ordering Physician: Kvng Eaton MD Date of Service: 05/01/24 Procedure(s): XR chest 1V post procedure Accession Number(s): [id number] cc: César Vasquez PA-C; Kvng Eaton MD~ Examination: AP chest single view Technique one AP upright portable chest single view Exam date and time: May 01, 2024 1137 hours Comparison May 01, 2024 0712 hours INDICATIONS: Postthoracentesis. FINDINGS: Marked decrease in left pleural fluid Significant pneumonia left base Right lung clear Normal heart size IMPRESSION: No pneumothorax post thoracentesis Significant pneumonia left base Dictated By: Kvng Eaton MD Signed By: <Electronically signed by Kvng Eaton MD in OV>05/01/24 1249 == Ordering Physician: Preethi White MD Date of Service: 05/01/24 Procedure(s): US thoracentesis Accession Number(s): [id number] cc: César Vasquez PA-C; Kvng Eaton MD; Preethi White MD~ Examination: Ultrasound-guided left thoracentesis Ultrasound right hemithorax Ultrasound left hemithorax Exam date and time: May 01, 2024 1202 hours INDICATIONS: Difficulty breathing today, large left pleural effusion on chest x-ray today TECHNIQUE AND FINDINGS: High resolution grayscale sonographic images hemithoraces, large left pleural effusion Informed consent provided. Timeout performed. Skin prepped over the left hemithorax and sterile drape applied maximum sterile barrier technique hand hygiene ultrasound sterile technique 1% lidocaine administered for local anesthesia. Utilizing ultrasonographic guidance 5 English catheter placed in the left pleural space, 1450 cc fluid withdrawn Estimated blood loss 0 cc IMPRESSION: Successful ultrasound-guided left thoracentesis, 1450 cc pleural fluid removed Dictated By: Kvng Eaton MD Signed By: <Electronically signed by Kvng Eaton MD in OV>05/01/24 1348 Ordering Physician: Preethi White MD Date of Service: 05/01/24 Procedure(s): CT chest abdomen pelvis w Accession Number(s): [id number] cc: César Vasquez PA-C; Kvng Eaton MD; Preethi White MD~ Examination: CT chest with intravenous contrast CT abdomen with intravenous contrast CT pelvis with intravenous contrast 2-D coronal and sagittal reconstructions Time of exam: May 01, 2024 1421 hours Comparison April 01, 2024 INDICATIONS: Difficulty breathing coughing shortness of breath one month CTDI: vol (mGy) : 5.91 DLP: (mGycm): 454 Technique: Multiple axial images of the chest, abdomen and pelvis with intravenous contrast, 3.0 mm slice thickness. Images obtained post intravenous injection Isovue 370 60 cc. 2-D sagittal and coronal reconstructions. Low dose protocols were performed. One or more of the following dose reduction techniques were used; automated exposure control, adjustment of the mA and/or KV according to patient size, use of iterative reconstruction technique. Findings: Mediastinal lymphadenopathy, smaller lymph nodes in the tracheobronchial region compared to the prior study No thoracic aortic aneurysm dilatation No pulmonary artery filling defects Diffuse significant left lung pneumonia Small left pleural effusion No visualized liver or splenic lesion No gallstones No pancreatic or adrenal mass Bilateral subcentimeter renal calculi Aorta in the abdomen normal size No bowel obstruction Normal appendix No diverticulitis Urinary bladder intact No prostatomegaly Mild osteopenia IMPRESSION: Decrease in mediastinal lymphadenopathy compared to the CT chest September 19, 2021 Extensive diffuse left lung pneumonia Bilateral nonobstructing renal calculi Dictated By: Kvng Eaton MD Signed By: <Electronically signed by Kvng Eaton MD in OV>05/01/24 1505 Ordering Physician: Preethi White MD Date of Service: 05/01/24 Procedure(s): MR head/brain wo/w con Accession Number(s): [id number] cc: César Vasquez PA-C; Kvng Eaton MD; Preethi White MD~ Examination: MRI of brain without intravenous contrast. MRI brain with intravenous contrast. Date and time of exam:May 01, 2024 1608 hours INDICATIONS: Bilateral ear pain 2 months with drainage, diagnosis sarcoidosis Technique: Multiple axial and sagittal images of the brain to been obtained. Siemens high-resolution 1.52 January short bore scanner utilized. Sagittal sections, T1 weighted images, TR 500, TE 14, are performed. Axial sections proton-density and T2-weighted images have been obtained. Inversion recovery axial images, TR 9260, TE 111, TR 2500. Diffusion weighted images, axial sections, TR 4800, TE 128, B value 1000. Axial sections, ADC map, TR 4800, TE 128. Axial and coronal images were also obtained post 13 cc gadolinium administered intravenously. Findings:: Enlargement of the sella turcica is not present. The optic chiasm and infundibular stalk are not remarkable. There is no localized enlargement of the medulla or miki. Fourth ventricle and cerebellar tonsils appear normal in position. No subacute area of hemorrhage density is seen. Fourth ventricle is midline. Mass in the cerebellopontine angle region is not evident. 7th and 8th nerve complexes exhibit symmetry Globes are symmetrical Orbital musculature including medial lateral rectus muscles do not exhibit abnormality Increased white matter signal is not seen Effacement of the cortical sulcal markings is not identified. Mass effect upon the ventricular system is not identified. Diffusion-weighted images demonstrate no focus of restricted diffusion Contrast images demonstrate minimal right mastoid enhancement Impression: Negative for acute hemorrhage, mass effect or midline shift No acute infarct No MR findings of demyelinating disease Right mastoiditis Given the patient's presentation, consider CT scan middle inner ear follow-up to best assess for right otitis media, acquired right cholesteatoma Dictated By: Kvng Eaton MD Signed By: <Electronically signed by Kvng Eaton MD in OV> 05/01/24 1643 Medications / Prescriptions Medications or Prescriptions considered but not ordered:: None Medication administrations:: Medication Administration History Discontinued Medications Hydrocodone Bitart/Acetaminophen (Hydrocodone/Apap 5/325 Tablet) 1 tab PO X1 ONE Stop: 05/01/24 14:57 Last Admin: 05/01/24 15:13 Dose: 1 tab Documented By: DB Albuterol/Ipratropium (Albuterol/Ipratropium (Duoneb) Rt Sanjuana 3 Ml Nebu) 3 ml INH X1 ONE Stop: 05/01/24 13:20 Last Admin: 05/01/24 13:49 Dose: 3 ml Documented By: Diphenhydramine HCl (Diphenhydramine Inj 50 Mg/Ml Vial) 25 mg IVP X1 ONE Stop: 05/01/24 17:09 Last Admin: 05/01/24 17:15 Dose: 25 mg Documented By: PREM Fluconazole (Fluconazole 100 Mg Tablet) 400 mg PO X1 ONE Stop: 05/01/24 16:11 Last Admin: 05/01/24 17:09 Dose: 400 mg Documented By: PREM Sodium Chloride (Ns) 1,500 mls @ 1,500 mls/hr 30 ml/kg infuse over 60 min (1500 ml) IV .Q1H ONE Stop: 05/01/24 10:31 Last Infusion: 05/01/24 13:09 Dose: Infused Documented By: Admin: 05/01/24 10:23 Dose: 1,500 mls/hr Documented By: PREM Sodium Chloride (Ns) 1,000 mls @ 999 mls/hr IV .Q1H1M ONE Stop: 05/01/24 14:42 Last Admin: 05/01/24 15:21 Dose: Not Given Documented By: PREM Non-Admin Reason: Patient Refused Lidocaine HCl (Lidocaine Inj Pf 1% 30 Ml Vial) Confirm Administered Dose 30 ml .ROUTE .STK-MED ONE Stop: 05/01/24 12:08 Last Admin: 05/01/24 13:11 Dose: Not Given Documented By: PREM Non-Admin Reason: Other, see note Comments: MED NOT GIVEN IN ER Methylprednisolone Sodium Succinate (Methylprednisolone Sod Succ 62.5 Mg/Ml 2ml Vial) 125 mg IVP X1 ONE Stop: 05/01/24 17:10 Last Admin: 05/01/24 17:16 Dose: 125 mg Documented By: PREM Morphine Sulfate (Morphine Sulf Inj 10 Mg/Ml Vial) 4 mg IVP X1 ONE Stop: 05/01/24 13:20 Last Admin: 05/01/24 13:27 Dose: 4 mg Documented By: PREM Ondansetron HCl (Ondansetron Inj 2 Mg/Ml Inj 2 Ml) 4 mg IV X1 ONE; Protocol Stop: 05/01/24 13:20 Last Admin: 05/01/24 13:27 Dose: 4 mg Documented By: PREM Prednisone (Prednisone 20 Mg Tablet) 80 mg PO X1 ONE Stop: 05/01/24 06:58 Last Admin: 05/01/24 07:06 Dose: Not Given Documented By: CÉSAR Non-Admin Reason: Patient Refused See above Consultations Consultation(s) initiated? (list below): No Diagnosis Shortness of Breath Differential Diagnosis: acute exacerbation of chronic obstructive airways disease, congestive heart failure, community acquired pneumonia, asthma with exacerbation, pulmonary embolism and other (pleural effusion, pneumothorax ) Most likely diagnosis given after review of the tests above:: Dyspnea Pleural effusion on left s/p thoracentesis chronic right ear pain [facility] Admission Indicated Admission indicated?: not indicated Admission Request Was there a request for admission?: No Disposition Plan Disposition Plan: Discharge Discharge Attestation Discharge Attestation: The patient and all family members were given an opportunity to ask questions and understood the discharge instructions. Discharge instructions specifically effects, indications for sooner follow up or return to the emergency department, and the expected course of current diagnosis. Patient condition: Stable Discharge Plan Plan Patient Disposition: HOME (Self Care) Patient condition on transfer: Stable Prescriptions/Referrals Prescriptions/Med Rec: New fluconazole 200 mg tablet 400 mg PO QDAY 45 Days Qty: 90 0RF albuterol sulfate 90 mcg/actuation HFA aerosol inhaler 2 puff inhalation Q6H PRN (Reason: cough) 5 Days Qty: 8.5 0RF Rx Instructions: administer with spacer amoxicillin-pot clavulanate 875-125 mg tablet 1 tab PO BID 7 Days Qty: 14 0RF doxycycline hyclate 100 mg capsule 100 mg PO BID Qty: 14 0RF acetaminophen [Tylenol] 325 mg tablet 650 mg PO TID PRN (Reason: pain) 7 Days Qty: 30 1RF No Action metformin [Glucophage] 1,000 MG tablet 1,000 mg PO BID Qty: 0 insulin glargine [Lantus U-100 Insulin] 100 unit/mL Solution 50 unit SUBCUT QPM Januvia 25 mg Tablet 25 mg PO QDAY ibuprofen 600 mg tablet 600 mg PO Q8H PRN (Reason: fever or pain) Qty: 30 0RF ibuprofen 600 mg tablet 600 mg PO Q8H PRN (Reason: pain) Qty: 20 0RF Referrals: César Vasquez PA-C [Primary Care Provider] - In 1 week Problem List Clinical Impression: Pleural effusion on left, S/P thoracentesis, [place] fever, Chronic right ear pain Patient/Caregiver Discharge Instructions Education Materials: Thoracentesis Dc, Understanding Coccidioidomycosis, ED Pleural Effusion Additional Instructions: It was a pleasure meeting you today. Thank you for allowing me to take care of you and your family member. I did get to speak to your family member Dr. Sharmila gonzales with your permission and updated him with the plan. 1. Please take the fluconazole 400 mg once a day for the next 6 weeks for valley fever. 2. Please take Augmentin and doxycycline as prescribed for the next 7 days. 3. Please follow-up with your family life counselor in [place] as scheduled. Dr. Hensley will ensure that your medical records will be obtained with the pleural fluid results. 4. Since you had allergic reaction or hives to the MRI with contrast today, I will give you 5 days of Solu-Medrol. Please follow the instructions for possible allergic reaction and call 911 if you have any worsening symptoms, trouble breathing, you feel like you are going to pass out, or any other concerns. 5. Return to the emergency department for any worsening symptoms, you cannot tolerate liquids, I do know that you are fasting for mammogram but you may want to consider eating so you can stay hydrated. Print Language: Guamanian Stand Alone Forms: Malena Award Info., Patient Portal Info Letter
[2024-05-01] MEDS: MORPHINE SULF INJ 10 MG/ML VIAL 4 MG IVP (13:27)
[2024-05-01] MEDS: ONDANSETRON INJ 2 MG/ML INJ 2 ML 4 MG IV (13:27)
[2024-05-01] MEDS: ALBUTEROL/IPRATROPIUM (Duoneb) RT SOL 3 ML NEBU INH (13:49)
[2024-05-01 14:18] LABS: Cocci Serology, IgM Positive (Negative)
[2024-05-01 14:19] LABS: Cocid Sro, CF/ID (UCD) NO CHG* See Sep Rpt
[2024-05-01 15:04] LABS: Pleural Fluid WBC 3936 /cmm
[2024-05-01 15:06] LABS: Amylase,Pleural Fluid 43 IU/L; Glucose,Pleural Fluid 118 mg/dL; LDH,Pleural Fluid 137 IU/L; Protein Total,Pleural Fluid 5.1 g/dL
[2024-05-01 15:07] LABS: Pleural Fluid Appearance Cloudy; Pleural Fluid Color Yellow
[2024-05-01 15:08] LABS: Pleural Fluid Mononuclear 87 %; Pleural Fluid Polynuclear 13 %; Pleural Fluid RBC 4000 /cmm
[2024-05-01] MEDS: HYDROcodone/APAP 5/325 TABLET 1 TAB PO (15:13)
[2024-05-01] MEDS: FLUCONAZOLE 100 MG TABLET 400 MG PO (17:09)
--- NOTE | 2024-05-01 17:10 | PC.NURSE ---
PT DEVELOPED HIVES ON HIS RIGHT UPPER ARM, BACK ASSOCIATED WITH [employer] THOUGHT THE HIS BODY. PT REPORTS THAT HE HAD JUST GOT BACK FROM MRI WHERE HE WAS GIVEN IV CONTRAST. DR. SKELTON MADE AWARE, NEW ORDERS GIVEN TO THIS NURSE
[2024-05-01] MEDS: DiphenhydrAMINE INJ 50 MG/ML VIAL 25 MG IVP (17:15)
[2024-05-01] MEDS: MethylPREDNISolone SOD SUCC 62.5 MG/ML 2ML VIAL 125 MG IVP (17:16)
== END 2024-05-01 18:38 | disposition home or self-care (01) ==
PROVIDERS: Nurse Practitioner Family; Emergency Provider Emergency Medicine; PCP Physician Assistant
DX: J90 Pleural effusion, not elsewhere classified (principal); B38.0 Acute pulmonary coccidioidomycosis; H70.91 Unspecified mastoiditis, right ear; R00.0 Tachycardia, unspecified; J18.9 Pneumonia, unspecified organism; N20.0 Calculus of kidney; R59.0 Localized enlarged lymph nodes; I10 Essential (primary) hypertension
CPT/HCPCS: 32555; 36415; 70553; 71046; 71260; 74177; 80053; 82150; 82945; 83615; 83880; 84157; 84484; 85025; 85610; 85730; 86635; 87400; 87634; 87811; 89051; 93005; 94640; 96361; 96374; 96375; 99285; A4649; A9270; A9579; C1729; J1200; J2270; J2405; J2919; J7030; Q9967

== ENCOUNTER 2024-05-04 08:57 | Outpatient (AMB) | payer MEDICAID, SELFPAY ==
[2024-05-04 09:06] VITALS: BP 125/81; PULSE 97; RESP 16; TEMP 36.8; O2SAT 97
--- NOTE | 2024-05-04 09:06 | ACNOTE_ITS ---
Vital Signs 05/04/24 09:06 Weight 65.317 kg Weight Measurement Method Standing Scale BP 125/81 Blood Pressure Source Automatic Cuff Blood Pressure Location Left Upper Arm Position Sitting Respiration 16 Pulse 97 Pulse Source Monitor Temp 98.2 F Temp Source Oral Pulse Oximetry (%) 97 Oxygen Delivery Method Room Air Allergies/Meds Allergies & Medications Allergies No Known Allergies Allergy (Verified 05/04/24 09:07) Medication Reconciliation metformin 1,000 mg tablet (Glucophage) 1,000 mg PO BID #0 tabs 06/05/15 [History Confirmed 05/04/24] insulin glargine 100 unit/mL subcutaneous solution (Lantus U-100 Insulin) 50 unit subcut QPM 11/08/18 [History Confirmed 05/04/24] sitagliptin phosphate 25 mg tablet (Januvia) 25 mg PO QDAY 11/08/18 [History Confirmed 05/04/24] ibuprofen 600 mg tablet 600 mg PO Q8H PRN fever or pain #30 tabs 12/10/23 [Rx Confirmed 05/04/24] ibuprofen 600 mg tablet 600 mg PO Q8H PRN pain #20 tabs 02/29/24 [Rx Confirmed 05/04/24] acetaminophen 325 mg tablet (Tylenol) 650 mg (2 x 325 mg) PO TID PRN pain 7 days #30 tabs 05/01/24 [Rx Confirmed 05/04/24] albuterol sulfate 90 mcg/actuation aerosol inhaler 2 puff inhalation Q6H PRN cough 5 days #8.5 grams 05/01/24 [Rx Confirmed 05/04/24] amoxicillin 875 mg-potassium clavulanate 125 mg tablet 1 tab PO BID 7 days #14 tabs 05/01/24 [Rx Confirmed 05/04/24] doxycycline hyclate 100 mg capsule 100 mg PO BID #14 caps 05/01/24 [Rx Confirmed 05/04/24] epinephrine 0.3 mg/0.3 mL injection, auto-injector 0.3 ml subcut .1 PRN hypersensitivity reaction #2 ea 05/01/24 [Rx Confirmed 05/04/24] fluconazole 200 mg tablet 400 mg (2 x 200 mg) PO QDAY 45 days #90 tabs 05/01/24 [Rx Confirmed 05/04/24] prednisone 50 mg tablet 50 mg PO QDAY #5 tabs 05/01/24 [Rx Confirmed 05/04/24] blood-glucose sensor (Dexcom G7 Sensor device) #1 ea 05/04/24 [Rx] losartan 25 mg tablet 25 mg PO QDAY #30 tabs 05/04/24 [Rx] MA Intake Visit Data Collection New Patient or Established: Established Patient (seen at [facility] within 3 years) Seen by Clinical Staff ONLY (RN/MA): No Pain Present Currently: Yes Pain Location: Abdomen Pain scale:: 5 Pain Scale Used: [employer] Serviceperson Required: No PCP or OBGYN visit in last 3 months: Yes Date of Last PCP or OBGYN visit: 05/01/24 Hx Now: No Do You Feel Safe at Home: Yes Authorities Contacted: N/A Smoking Status Smoking Status: Never smoker Immunization / Flu Flu Vaccine in the Last 12 Months: No Flu Vaccine Exclusion Criteria: No Exclusion Criteria Past Medical History Past Medical History CARDIAC: Positive Hypertension; Negative Cardiac Disorders or Congestive Heart Failure RESPIRATORY: Negative Chronic Obstructive Pulmonary Disease (COPD) or Asthma GENITOURINARY: Negative Renal Disease ENDOCRINE: Positive Diabetes Mellitus Type 2; Negative Diabetes Mellitus Type 1 HEMATOLOGIC: Negative Sickle Cell Disease Social History SMOKING STATUS: Smoking status: Never smoker Patient Portal Questionaires PHQ-9 PHQ-2 Over the last 2 weeks, how often have you been bothered by any of the following problems? 1. Little interest or pleasure in doing things: not at all 2. Feeling down, depressed, or hopeless: not at all Total score: 0 PHQ-9 3. Trouble falling or staying asleep, or sleeping too much: Not at all 4. Feeling tired or having little energy: Not at all 5. Poor appetite or overeating: Not at all 6. Feeling bad about yourself - or that you are a failure or have let yourself or your family down: Not at all 7. Trouble concentrating on things, such as reading the newspaper or watching television: Not at all 8. Moving or speaking so slowly that other people could have noticed? - Or the opposite - being so fidgety or restless that you have been moving around a lot more than usual: not at all 9. Thoughts that you would be better off or of hurting yourself in some way: Not at all Total score: 0 If you checked off any problems, how difficult have these problems made it for you to do your work, take care of things at home, or get along with other people?: not difficult at all Source: Developed by Drs. Matty Cruz, Monika Guadarrama, Chris Marley and colleagues, with an educational deonna from [employer]. Depression screen completed yes Social History Tobacco History Smoking Status: Never smoker Domestic Abuse History Do You Feel Safe at Home: Yes Review of Systems Report any current symptoms Only answer those that you have currently: Past Medical History Past Medical History Have you ever been diagnosed with any of the following: Cardiology Problems Congestive Heart Failure: No Hypertension: Yes Respiratory Problems Chronic Obstructive Pulmonary Disease (COPD): No Asthma: No Genital/Urinary Problems Renal Disease: No Endocrine Problems Diabetes Mellitus Type 1: No Diabetes Mellitus Type 2: Yes Blood Problems Sickle Cell Disease: No History of Present Illness HPI Narrative Patient is a 43-year-old male with past medical history of insulin-dependent diabetes mellitus, hypertension, hyperlipidemia, sarcoidosis diagnosed with biop sy, and recent valley fever diagnosis on 05-01-2024 who presents to the [facility] to establish care. Patient went to the ED on due to shortness of breath and chest pain. Patient was noted to have left pleural effusion with thoracentesis removing a total of 1.5 L. Further imaging indicated left lower lobe pneumonia and patient was cocci positive. Patient sent home on antibiotics doxycycline and Augmentin for 7 days and was started on fluconazole. Patient states he follows up in [place] with pulm specialist to manage his sarcoidosis, last visit was in November 2023. Patient currently takes 30 of Lantus and 20 of short acting in the evening and 10 in the morning due to Ramadan. Patient also reports frequent coughing, but is otherwise stable. Patient currently denies any chest pain, nausea, vomiting, abdominal pain, constipation, diarrhea, or lower extremity swelling. Objective/Exam Narrative Physical exam: GENERAL: Alert and oriented x3, no acute distress. HEENT: Normocephalic, atraumatic. EOMI, nonicteric. HEART: Regular rate and rhythm, no murmurs, rubs or gallops. LUNGS: Crackles noted on left lower lobes. Clear right lower lobe and clear upper lobes. ABDOMEN: Soft, non-tender, no guarding or rebound tenderness. There are no abnormal masses palpated. Active bowel sounds. EXTREMITIES: Non-tender. No edema. No cyanosis. Patient is able to move all 4 extremities well, with full ROM. SKIN: Warm and dry, no jaundice or rashes noted. PSYCHIATRIC: Patient is in normal mood and affect, cooperative. Assessment & Plan Diagnosis / Problem List (1) [facility] fever: Status: Acute Assessment & Plan: Patient recently positive for cocci IgM Pending [facility] lab results Plan: Patient on fluconazole 400 daily Will monitor LFTs in 1 month (2) Mastoiditis: Status: Acute Qualifiers: Laterality: right Qualified Code(s): H70.91 - Unspecified mastoiditis, right ear Assessment & Plan: MRI head showing mastoiditis during recent visit to ED on 05-01-2024 Plan: Patient currently on doxycycline and Augmentin Patient has follow-up appointment with ENT in May As needed acetaminophen for pain. (3) Sarcoidosis: Status: Acute Assessment & Plan: Patient diagnosed for sarcoidosis via biopsy Imaging showing perihilar lymphadenopathy slightly decrease from previous readings in 2021 Plan: Patient to hold off on any steroid medications at this time due to positive cocci Patient keep close follow-up with pulm clinic in [place]. (4) Diabetes mellitus with insulin therapy: Status: Acute Assessment & Plan: Fasting sugars while in office 147 with 5 hours of fasting. Last A1c was 8.4 Dexcom reading shows majority of sugar around 130 throughout the day. Plan: Continue with Lantus 30 Continue with short acting insulin Continue with metformin Continue with Januvia Will repeat A1c and microalbumin Will adjust medications pending A1c results. Podiatry referral pending Ophthalmology appointment coming up. (5) Hypertension associated with diabetes: Status: Acute Assessment & Plan: Blood pressure currently stable Patient does report chronic cough on lisinopril Will transition over to losartan Plan: Patient switched over to losartan 25 mg daily Patient will bring blood pressure diary in 2 weeks follow-up visit to adjust medications Plan Patient to follow-up in 2 weeks with A1c and microalbumin results. Will adjust BP medications and diabetes medications pending results of A1c and blood pressure diary. Patient to have liver enzymes assessed in 1 month as patient is on fluconazole and atorvastatin. 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 Pending podiatry referral. Pending pulm appointment in [place] potentially in August. Orders: Orders Microalbumin, Ur Laura w Creat Today E11.9 - Type 2 diabetes mellitus without complications, Z79.4 - oil heaterman (current) use of insulin Ambulatory Hemoglobin A1C Today E11.9 - Type 2 diabetes mellitus without complications, Z79.4 - oil heaterman (current) use of insulin Referrals Podiatry E11.9 - Type 2 diabetes mellitus without complications, Z79.4 - oil heaterman (current) use of insulin Office Procedures [facility] Procedures Bedside Glucose Bedside Glucose: Yes [facility] Level of Care Nursing/Assessment Patient Status: Established Patient Nursing Assessment/Reassessment: BP Monitoring, Medication Reconciliation, Update PMH in EMR and Vital Signs Coordination of Care: Consent,records obtained, informed consent, Education Simp Pt/Fam, Lab and Imaging orders and Staff clarify orders Established Patient Charge Established Patient Point Assignment: 90 Established Patient Point Charge: EP Level 3 (80-115) Results Glucose 2 Glucose 141 mg/dL Last Edit by Leticia Oden MA on 05/04/24 09:51
== END 2024-05-04 10:00 | disposition home or self-care (01) ==
LOC: HODAHC 08:57
PROVIDERS: PCP Student in an Organized Health Care Education/Training Program; Referring Provider Student in an Organized Health Care Education/Training Program; Supervising Provider Internal Medicine; Visit Provider Student in an Organized Health Care Education/Training Program
DX: B38.0 Acute pulmonary coccidioidomycosis (principal); E11.9 Type 2 diabetes mellitus without complications; H70.91 Unspecified mastoiditis, right ear; D86.9 Sarcoidosis, unspecified; I15.2 Hypertension secondary to endocrine disorders; Z79.4 Long term (current) use of insulin; Z79.84 Long term (current) use of oral hypoglycemic drugs; J90 Pleural effusion, not elsewhere classified; E78.5 Hyperlipidemia, unspecified
CPT/HCPCS: 82948; 99213; G0463

== ENCOUNTER 2024-05-18 10:14 | Outpatient (AMB) | payer MEDICAID, SELFPAY ==
[2024-05-18 10:20] VITALS: BP 119/78; PULSE 83; RESP 18; TEMP 36.6; O2SAT 98; BMI 25.4
--- NOTE | 2024-05-18 10:20 | ACNOTE_ITS ---
Vital Signs 05/18/24 10:20 Height 1.6 m Height Method Stated Weight 65.091 kg Weight Measurement Method Standing Scale BMI 25.4 BP 119/78 Blood Pressure Source Automatic Cuff Blood Pressure Location Left Upper Arm Position Sitting Respiration 18 Pulse 83 Pulse Source Monitor Temp 97.8 F Temp Source Temporal Artery Scan Pulse Oximetry (%) 98 Oxygen Delivery Method Room Air Allergies/Meds Allergies & Medications Allergies No Known Allergies Allergy (Verified 05/18/24 10:21) Medication Reconciliation metformin 1,000 mg tablet (Glucophage) 1,000 mg PO BID #0 tabs 06/05/15 [History Confirmed 05/18/24] insulin glargine 100 unit/mL subcutaneous solution (Lantus U-100 Insulin) 50 unit subcut QPM 11/08/18 [History Confirmed 05/18/24] sitagliptin phosphate 25 mg tablet (Januvia) 25 mg PO QDAY 11/08/18 [History Confirmed 05/18/24] ibuprofen 600 mg tablet 600 mg PO Q8H PRN fever or pain #30 tabs 12/10/23 [Rx Confirmed 05/18/24] ibuprofen 600 mg tablet 600 mg PO Q8H PRN pain #20 tabs 02/29/24 [Rx Confirmed 05/18/24] acetaminophen 325 mg tablet (Tylenol) 650 mg (2 x 325 mg) PO TID PRN pain 7 days #30 tabs 05/01/24 [Rx Confirmed 05/18/24] doxycycline hyclate 100 mg capsule 100 mg PO BID #14 caps 05/01/24 [Rx Confirmed 05/18/24] epinephrine 0.3 mg/0.3 mL injection, auto-injector 0.3 ml subcut .1 PRN hypersensitivity reaction #2 ea 05/01/24 [Rx Confirmed 05/18/24] fluconazole 200 mg tablet 400 mg (2 x 200 mg) PO QDAY 45 days #90 tabs 05/01/24 [Rx Confirmed 05/18/24] prednisone 50 mg tablet 50 mg PO QDAY #5 tabs 05/01/24 [Rx Confirmed 05/18/24] blood-glucose sensor (Dexcom G7 Sensor device) #1 ea 05/04/24 [Rx Confirmed 05/18/24] losartan 25 mg tablet 25 mg PO QDAY #30 tabs 05/04/24 [Rx Confirmed 05/18/24] empagliflozin 10 mg tablet (Jardiance) 10 mg PO QAM #30 tabs 05/18/24 [Rx] MA Intake Visit Data Collection New Patient or Established: Established Patient (seen at [facility] within 3 years) Seen by Clinical Staff ONLY (RN/MA): No Pain Present Currently: No Pain scale:: 0 Pain Scale Used: [employer] D[employer] Required: No PCP or OBGYN visit in last 3 months: Yes Hx Now: No Do You Feel Safe at Home: Yes Authorities Contacted: N/A Smoking Status Smoking Status: Never smoker Immunization / Flu Flu Vaccine in the Last 12 Months: No Flu Vaccine Exclusion Criteria: Already Received Past Medical History Past Medical History CARDIAC: Positive Hypertension; Negative Cardiac Disorders or Congestive Heart Failure RESPIRATORY: Negative Chronic Obstructive Pulmonary Disease (COPD) or Asthma GENITOURINARY: Negative Renal Disease ENDOCRINE: Positive Diabetes Mellitus Type 2; Negative Diabetes Mellitus Type 1 HEMATOLOGIC: Negative Sickle Cell Disease Social History SMOKING STATUS: Smoking status: Never smoker Patient Portal Questionaires PHQ-9 PHQ-2 Over the last 2 weeks, how often have you been bothered by any of the following problems? 1. Little interest or pleasure in doing things: not at all PHQ-9 8. Moving or speaking so slowly that other people could have noticed? - Or the opposite - being so fidgety or restless that you have been moving around a lot more than usual: not at all Source: Developed by Drs. Matty Cruz, Monika Guadarrama, Chris Marley and colleagues, with an educational deonna from [employer]. Social History Tobacco History Smoking Status: Never smoker Domestic Abuse History Do You Feel Safe at Home: Yes Review of Systems Report any current symptoms Only answer those that you have currently: Past Medical History Past Medical History Have you ever been diagnosed with any of the following: Cardiology Problems Congestive Heart Failure: No Hypertension: Yes Respiratory Problems Chronic Obstructive Pulmonary Disease (COPD): No Asthma: No Genital/Urinary Problems Renal Disease: No Endocrine Problems Diabetes Mellitus Type 1: No Diabetes Mellitus Type 2: Yes Blood Problems Sickle Cell Disease: No History of Present Illness HPI Narrative Patient is a 43-year-old male with past medical history of insulin-dependent diabetes mellitus, hypertension, hyperlipidemia, sarcoidosis diagnosed with biopsy, and recent valley fever diagnosis on 05-01-2024 who presents to the [facility] for follow up appointment. Patient reports improvement in cough, but is still having coughing spells. Patient sugars average around 140 with the dexcom reader. A1c is 7.5 and albumin creatinine ratio was 50, previously A1c was 8.3, and albumin creatinine ratio was 76. Patient states he has a follow-up appointment with ENT on 22 May. Patient also reports having follow-up appointment in [place] with pulmonology on 26 May. Patient has completed antibiotic course for pneumonia. Patient does report mild itching on lower extremities, especially when going to the restroom. Patient currently denies any chest pain, nausea, vomiting, abdominal pain, constipation, diarrhea, or lower extremity swelling. Objective/Exam Narrative Physical exam: GENERAL: Alert and oriented x3, no acute distress. HEENT: Normocephalic, atraumatic. EOMI, nonicteric. HEART: Regular rate and rhythm, no murmurs, rubs or gallops. LUNGS: Chest clear to auscultation bilaterally.. ABDOMEN: Soft, non-tender, no guarding or rebound tenderness. There are no abnormal masses palpated. Active bowel sounds. EXTREMITIES: Non-tender. No edema. No cyanosis. Patient is able to move all 4 extremities well, with full ROM. SKIN: Warm and dry, no jaundice or rashes noted. Dry skin. PSYCHIATRIC: Patient is in normal mood and affect, cooperative. Assessment & Plan Diagnosis / Problem List (1) [facility] fever: Status: Inactive Assessment & Plan: Patient recently positive for cocci IgM [facility] lab results confirm cocci diagnoses. Plan: Patient on fluconazole 400 daily Will monitor LFTs in 1 month (2) Mastoiditis: Status: Acute Qualifiers: Laterality: right Qualified Code(s): H70.91 - Unspecified mastoiditis, right ear Assessment & Plan: MRI head showing mastoiditis during recent visit to ED on 05-01-2024 Patient completed antibiotic course. Patient has ENT appointment on 22 May. Plan: Patient completed course of doxycycline and Augmentin. As needed acetaminophen for pain. (3) Sarcoidosis: Status: Acute Assessment & Plan: Patient diagnosed with sarcoidosis via biopsy Imaging showing perihilar lymphadenopathy slightly decrease from previous readings in 2021 Plan: Patient to hold off on any steroid medications at this time due to positive cocci Upcoming appointment in [place] on May 26. (4) Diabetes mellitus with insulin therapy: Status: Acute Assessment & Plan: Albumin creatinine ratio slightly improved from 73-50. Most recent A1c improved from 8.3-7.5. Dexcom reading shows majority of sugar around 140s during this visit. Plan: Continue with Lantus 30 Continue with short acting insulin Continue with metformin Continue with Januvia Started Jardiance for renal protection Podiatry referral pending Ophthalmology appointment coming up. (5) Hypertension associated with diabetes: Status: Acute Assessment & Plan: Blood pressure currently stable Patient reports cough has improved. Patient tolerating losartan well Plan: Patient to continue losartan 25 mg daily Patient reports blood pressure being within range and tolerating medication without any side effects. (6) Proteinuria: Status: Acute Qualifiers: Proteinuria type: unspecified Qualified Code(s): R80.9 - Proteinuria, unspecified Assessment & Plan: Albumin creatinine ratio shows proteinuria 50 slight improvement from 76. Likely secondary from diabetes mellitus Plan: Patient on losartan Will start Jardiance Will continue monitoring albumin creatinine ratio and A1c. Plan Patient to follow-up in 1 month with liver enzymes to assess for any transaminitis as he is on statin and fluconazole. Patient started on Jardiance for both diabetes and proteinuria Patient tolerating losartan well Patient has follow-up appointment with ENT on the , and pulm on 26 May Podiatry referral pending. Office Procedures [facility] Level of Care Nursing/Assessment Patient Status: Established Patient Nursing Assessment/Reassessment: Medication Reconciliation, Update PMH in EMR and Vital Signs Coordination of Care: Complex Care and Chronic Disease 1-5, Consent,records obtained, informed consent, Education Simp Pt/Fam and Staff clarify orders Established Patient Charge Established Patient Point Assignment: 85 Established Patient Point Charge: EP Level 3 (80-115)
== END 2024-05-18 11:03 | disposition home or self-care (01) ==
LOC: HODAHC 10:14
PROVIDERS: PCP Student in an Organized Health Care Education/Training Program; Referring Provider Student in an Organized Health Care Education/Training Program; Supervising Provider Internal Medicine; Visit Provider Student in an Organized Health Care Education/Training Program
DX: B38.0 Acute pulmonary coccidioidomycosis (principal); H70.001 Acute mastoiditis without complications, right ear; D86.9 Sarcoidosis, unspecified; E11.9 Type 2 diabetes mellitus without complications; Z79.4 Long term (current) use of insulin; Z79.84 Long term (current) use of oral hypoglycemic drugs; R80.9 Proteinuria, unspecified; I15.2 Hypertension secondary to endocrine disorders
CPT/HCPCS: 99213; G0463

== ENCOUNTER 2024-06-19 10:35 | Outpatient (AMB) | payer MEDICAID, SELFPAY ==
--- NOTE | 2024-06-19 10:44 | PD.RESCLINIC ---
Vital Signs 06/19/24 10:45 Height 1.6 m Height Method Stated Weight 65.317 kg Weight Measurement Method Standing Scale BMI 25.4 BP 142/83 H Blood Pressure Source Automatic Cuff Blood Pressure Location Right Upper Arm Position Sitting Respiration 18 Pulse 92 Pulse Source Monitor Temp 98.2 F Temp Source Temporal Artery Scan Pulse Oximetry (%) 98 Oxygen Delivery Method Room Air Allergies/Meds Allergies & Medications Allergies No Known Allergies Allergy (Verified 06/19/24 10:45) Medication Reconciliation ibuprofen 600 mg tablet 600 mg PO Q8H PRN fever or pain #30 tabs 12/10/23 [Rx Confirmed 06/19/24] ibuprofen 600 mg tablet 600 mg PO Q8H PRN pain #20 tabs 02/29/24 [Rx Confirmed 06/19/24] acetaminophen 325 mg tablet (Tylenol) 650 mg (2 x 325 mg) PO TID PRN pain 7 days #30 tabs 05/01/24 [Rx Confirmed 06/19/24] doxycycline hyclate 100 mg capsule 100 mg PO BID #14 caps 05/01/24 [Rx Confirmed 06/19/24] epinephrine 0.3 mg/0.3 mL injection, auto-injector 0.3 ml subcut .1 PRN hypersensitivity reaction #2 ea 05/01/24 [Rx Confirmed 06/19/24] prednisone 50 mg tablet 50 mg PO QDAY #5 tabs 05/01/24 [Rx Confirmed 06/19/24] blood-glucose sensor (Garmor G7 Sensor device) #1 ea 06/19/24 [Rx] empagliflozin 10 mg tablet (Jardiance) 10 mg PO QAM #30 tabs 06/19/24 [Rx] fexofenadine 180 mg tablet 180 mg PO QDAY 1 month #30 tabs 06/19/24 [Rx] fluconazole 200 mg tablet 400 mg (2 x 200 mg) PO QDAY 45 days #90 tabs 06/19/24 [Rx] insulin glargine 100 unit/mL subcutaneous solution (Lantus U-100 Insulin) 50 unit (0.5 mL) subcut QPM #10 mL 06/19/24 [Rx] losartan 25 mg tablet 25 mg PO QDAY #30 tabs 06/19/24 [Rx] metformin 1,000 mg tablet 1,000 mg PO BID #60 tabs 06/19/24 [Rx] sitagliptin phosphate 25 mg tablet (Januvia) 25 mg PO QDAY #30 tabs 06/19/24 [Rx] triamcinolone acetonide 0.5 % topical cream 1 applic topical BID 1 month #15 grams 06/19/24 [Rx] ARCHANA Intake Visit Data Collection New Patient or Established: Established Patient (seen at [facility] within 3 years) Seen by Clinical Staff ONLY (RN/MA): No Pain Present Currently: No Pain scale:: 0 Pain Scale Used: Hunt-Mason/Numerical Manager Credit Required: No PCP or OBGYN visit in last 3 months: No Hx Now: No Do You Feel Safe at Home: Yes Authorities Contacted: N/A Smoking Status Smoking Status: Never smoker Immunization / Flu Flu Vaccine in the Last 12 Months: No Flu Vaccine Exclusion Criteria: No Exclusion Criteria Past Medical History Past Medical History CARDIAC: Positive Hypertension; Negative Cardiac Disorders or Congestive Heart Failure RESPIRATORY: Negative Chronic Obstructive Pulmonary Disease (COPD) or Asthma GENITOURINARY: Negative Renal Disease ENDOCRINE: Positive Diabetes Mellitus Type 2; Negative Diabetes Mellitus Type 1 HEMATOLOGIC: Negative Sickle Cell Disease Social History SMOKING STATUS: Smoking status: Never smoker Patient Portal Questionaires PHQ-9 PHQ-2 Over the last 2 weeks, how often have you been bothered by any of the following problems? 1. Little interest or pleasure in doing things: not at all PHQ-9 8. Moving or speaking so slowly that other people could have noticed? - Or the opposite - being so fidgety or restless that you have been moving around a lot more than usual: not at all Source: Developed by Drs. Matty Cruz, Monika Guadarrama, Chris Marley and colleagues, with an educational deonna from [employer]. Social History Tobacco History Smoking Status: Never smoker Domestic Abuse History Do You Feel Safe at Home: Yes Review of Systems Report any current symptoms Only answer those that you have currently: Past Medical History Past Medical History Have you ever been diagnosed with any of the following: Cardiology Problems Congestive Heart Failure: No Hypertension: Yes Respiratory Problems Chronic Obstructive Pulmonary Disease (COPD): No Asthma: No Genital/Urinary Problems Renal Disease: No Endocrine Problems Diabetes Mellitus Type 1: No Diabetes Mellitus Type 2: Yes Blood Problems Sickle Cell Disease: No History of Present Illness HPI Narrative Patient is a 43-year-old male with past medical history of insulin-dependent diabetes mellitus, hypertension, hyperlipidemia, sarcoidosis diagnosed with biopsy, and 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 Patient reports improvement in cough, but is still having coughing spells. Patient sugars average around 140 with the dexcom reader. A1c is 7.5 and albumin creatinine ratio was 50, previously A1c was 8.3, and albumin creatinine ratio was 76. Patient states he has a follow-up appointment with ENT on 22 May. Patient also reports having follow-up appointment in [place] with pulmonology on 26 May. Patient has completed antibiotic course for pneumonia. Patient does report mild itching on lower extremities, especially when going to the restroom. Patient currently denies any chest pain, nausea, vomiting, abdominal pain, constipation, diarrhea, or lower extremity swelling. 06/19/2024: 44-year-old man with past medical history of sarcoidosis, hypertension, diabetes mellitus type 2 insulin-dependent, pulmonary coccidioidomycosis who came today to the [facility] as a walk-in with a chief complaint of a generalized rash. Patient stated his usual state of health and approximately 2 weeks ago started to present and maculopapular generalized rash pruriginous most likely an upper, lower extremities and back. Patient denies any other associated symptoms like fever, chest pain, burning sensation in the skin or difficulty breathing. Due to patient has stopped his prednisone dose for sarcoidosis could be secondary to skin manifestation of sarcoidosis versus drug-induced rash, less likely disseminated cocci. Patient has completed 45 days of fluconazole, IgG and IgM for cocci were positive for which we will continue treatment for order 45 days to complete 12 weeks total treatment, we will order referral for infectious disease for further follow-up and prescription of triamcinolone 0.5 mg topical twice daily was ordered as well as fexofenadine 180 mg daily and follow-up in 2 weeks. Review of Systems Review of Systems Systems Reviewed: All systems reviewed, normal except as documented Objective/Exam Narrative Physical exam: General: No acute distress, well appearing, alert, interactive. HEENT: NC/AT, PERRL, EOMI, Good conjugate gaze, moist mucous membranes, oropharynx clear. Neck: Supple, No masses, No adenopathy, carotid pulse 2+ bilaterally without bruits, No JVD, normal range of motion. Chest: Symmetrical, atraumatic, and with equal expansion , Nontender on palpation no deformity and no crepitus. CVS: S1 and S2 present, Regular rate and rhythm, No murmurs, rubs or gallops perceived during auscultation. Lungs: Normal respiratory effort, CTAB, no wheezing, rhonchi or rales perceived during auscultation, No intercostal or subcostal retraction. Abdomen : Soft, no tenderness to palpation, no guarding ,no rebound, +BS, no organomegaly. Extremities: No edema, warm well perfused, normal tone and ROM, strength and sensation intact, cap refill less than 2, +2 dp equal bilaterally, able to move all 4 extremities spontaneously. Skin: Generalized maculopapular rash on bilateral lower extremities, bilateral upper extremities and back Neuro: AOx4, cranial nerves II through XII intact, reflex symmetric and sensation normal, no focal neurologic deficits noted, GCS 15 Psych: Appropriate mood and affect. Assessment & Plan Diagnosis / Problem List (1) Rash: Status: Acute Assessment & Plan: Patient came with chief complaint of generalized maculopapular rash on bilateral upper, lower extremities and back. Differentials include: Sarcoid related skin manifestations due to patient stop steroids due to starting treatment for coccidioidomycosis with fluconazole vs drug-induced reaction Plan: ? Triamcinolone cream 0.5% twice daily ? Fexofenadine 180 milligrams p.o. daily ? Follow-up in 2 weeks (2) Sarcoidosis: Status: Acute Assessment & Plan: Patient diagnosed with sarcoidosis via biopsy Imaging showing perihilar lymphadenopathy slightly decrease from previous readings in 2021 Plan: Patient to hold off on any steroid medications at this time due to positive cocci Upcoming appointment in [place] on May 26. (3) Diabetes mellitus with insulin therapy: Status: Acute Assessment & Plan: Albumin creatinine ratio slightly improved from 73-50. Most recent A1c improved from 8.3-7.5. Dexcom reading shows majority of sugar around 140s during this visit. Plan: Continue with Lantus 30 Continue with short acting insulin Continue with metformin Continue with Januvia Continue Jardiance for renal protection Podiatry referral pending Ophthalmology appointment coming up. (4) Hypertension associated with diabetes: Status: Acute Assessment & Plan: Blood pressure currently stable Patient reports cough has improved. Patient tolerating losartan well Plan: Patient to continue losartan 25 mg daily Patient reports blood pressure being within range and tolerating medication without any side effects. (5) Proteinuria: Status: Acute Qualifiers: Proteinuria type: unspecified Qualified Code(s): R80.9 - Proteinuria, unspecified Assessment & Plan: Albumin creatinine ratio shows proteinuria 50 slight improvement from 76. Likely secondary from diabetes mellitus Plan: Patient on losartan Continue Jardiance Will continue monitoring albumin creatinine ratio and A1c. Orders: Referrals Infectious Disease B38.2 - Pulmonary coccidioidomycosis, unspecified Additional Assessment Patient discussed with my attending Dr Toyin Weldon MD PGY-3 Disclaimer: Despite multiple revisions, due to the dictation software being used, the document bellow may not be free of grammatical errors including phonetic/typographic errors. However, this does not deter from our commitment to providing health care in the patient's best interest in mind. Physician Billing Established Patient Established Patient: E/M Level 3-CPT 74715 Established PCPM Established Patient PCPM: E/M 40-64 yrs-CPT 07333 Office Procedures [facility] Level of Care Nursing/Assessment Patient Status: Established Patient Nursing Assessment/Reassessment: Medication Reconciliation, Update PMH in EMR and Vital Signs Coordination of Care: Complex Care and Chronic Disease 1-5, Consent,records obtained, informed consent, Education Simp Pt/Fam and Staff clarify orders Established Patient Charge Established Patient Point Assignment: 85 Established Patient Point Charge: EP Level 3 (80-115)
[2024-06-19 10:45] VITALS: BP 142/83; PULSE 92; RESP 18; TEMP 36.8; O2SAT 98; BMI 25.4
== END 2024-06-19 11:12 | disposition home or self-care (01) ==
PROVIDERS: Supervising Provider Internal Medicine; Visit Provider Student in an Organized Health Care Education/Training Program
DX: R21 Rash and other nonspecific skin eruption (principal); D86.9 Sarcoidosis, unspecified; E11.9 Type 2 diabetes mellitus without complications; Z79.4 Long term (current) use of insulin; Z79.84 Long term (current) use of oral hypoglycemic drugs; I15.2 Hypertension secondary to endocrine disorders; R80.9 Proteinuria, unspecified; L29.9 Pruritus, unspecified
CPT/HCPCS: 99213; G0463

== ENCOUNTER 2024-06-22 11:13 | Outpatient (AMB) | payer MEDICAID, SELFPAY ==
[2024-06-22 11:26] VITALS: BP 112/74; PULSE 78; RESP 18; TEMP 36.6; O2SAT 97; BMI 25.4
--- NOTE | 2024-06-22 11:26 | ACNOTE_ITS ---
Vital Signs 06/22/24 11:26 Height 1.6 m Height Method Stated Weight 65.034 kg Weight Measurement Method Standing Scale BMI 25.4 BP 112/74 Blood Pressure Source Automatic Cuff Blood Pressure Location Right Upper Arm Position Sitting Respiration 18 Pulse 78 Pulse Source Monitor Temp 97.8 F Temp Source Temporal Artery Scan Pulse Oximetry (%) 97 Oxygen Delivery Method Room Air Allergies/Meds Allergies & Medications Allergies No Known Allergies Allergy (Verified 06/22/24 11:27) Medication Reconciliation ibuprofen 600 mg tablet 600 mg PO Q8H PRN fever or pain #30 tabs 12/10/23 [Rx Confirmed 06/22/24] ibuprofen 600 mg tablet 600 mg PO Q8H PRN pain #20 tabs 02/29/24 [Rx Confirmed 06/22/24] acetaminophen 325 mg tablet (Tylenol) 650 mg (2 x 325 mg) PO TID PRN pain 7 days #30 tabs 05/01/24 [Rx Confirmed 06/22/24] doxycycline hyclate 100 mg capsule 100 mg PO BID #14 caps 05/01/24 [Rx Confirmed 06/22/24] epinephrine 0.3 mg/0.3 mL injection, auto-injector 0.3 ml subcut .1 PRN hypersensitivity reaction #2 ea 05/01/24 [Rx Confirmed 06/22/24] prednisone 50 mg tablet 50 mg PO QDAY #5 tabs 05/01/24 [Rx Confirmed 06/22/24] blood-glucose sensor (Dexcom G7 Sensor device) #1 ea 06/19/24 [Rx Confirmed 06/22/24] empagliflozin 10 mg tablet (Jardiance) 10 mg PO QAM #30 tabs 06/19/24 [Rx Confirmed 06/22/24] fexofenadine 180 mg tablet 180 mg PO QDAY 1 month #30 tabs 06/19/24 [Rx Confirmed 06/22/24] fluconazole 200 mg tablet 400 mg (2 x 200 mg) PO QDAY 45 days #90 tabs 06/19/24 [Rx Confirmed 06/22/24] insulin glargine 100 unit/mL subcutaneous solution (Lantus U-100 Insulin) 50 unit (0.5 mL) subcut QPM #10 mL 06/19/24 [Rx Confirmed 06/22/24] losartan 25 mg tablet 25 mg PO QDAY #30 tabs 06/19/24 [Rx Confirmed 06/22/24] metformin 1,000 mg tablet 1,000 mg PO BID #60 tabs 06/19/24 [Rx Confirmed 06/22/24] sitagliptin phosphate 25 mg tablet (Januvia) 25 mg PO QDAY #30 tabs 06/19/24 [Rx Confirmed 06/22/24] triamcinolone acetonide 0.5 % topical cream 1 applic topical BID 1 month #15 grams 06/19/24 [Rx Confirmed 06/22/24] insulin aspart U-100 100 unit/mL (3 mL) subcutaneous pen (Novolog FlexPen U-100 Insulin aspart) 12 unit (0.12 mL) subcut TID #15 mL 06/22/24 [Rx] insulin glargine 100 unit/mL (3 mL) subcutaneous pen (Lantus Solostar U-100 Insulin) 30 unit (0.3 mL) subcut QPM 1 month #15 mL 06/22/24 [Rx] MA Intake Visit Data Collection New Patient or Established: Established Patient (seen at [facility] within 3 years) Seen by Clinical Staff ONLY (RN/MA): No Pain Present Currently: No Pain scale:: 0 Pain Scale Used: Hunt-Mason/Numerical Swaging Machine Adjuster Required: No PCP or OBGYN visit in last 3 months: No Hx Now: No Do You Feel Safe at Home: Yes Authorities Contacted: N/A Smoking Status Smoking Status: Never smoker Immunization / Flu Flu Vaccine in the Last 12 Months: No Flu Vaccine Exclusion Criteria: No Exclusion Criteria Past Medical History Past Medical History CARDIAC: Positive Hypertension; Negative Cardiac Disorders or Congestive Heart Failure RESPIRATORY: Negative Chronic Obstructive Pulmonary Disease (COPD) or Asthma GENITOURINARY: Negative Renal Disease ENDOCRINE: Positive Diabetes Mellitus Type 2; Negative Diabetes Mellitus Type 1 HEMATOLOGIC: Negative Sickle Cell Disease Social History SMOKING STATUS: Smoking status: Never smoker Patient Portal Questionaires PHQ-9 PHQ-2 Over the last 2 weeks, how often have you been bothered by any of the following problems? 1. Little interest or pleasure in doing things: not at all PHQ-9 8. Moving or speaking so slowly that other people could have noticed? - Or the opposite - being so fidgety or restless that you have been moving around a lot more than usual: not at all Source: Developed by Drs. Matty L. NancyMonika fountain, Chris Marley and colleagues, with an educational deonna from [employer]. Social History Tobacco History Smoking Status: Never smoker Domestic Abuse History Do You Feel Safe at Home: Yes Review of Systems Report any current symptoms Only answer those that you have currently: Past Medical History Past Medical History Have you ever been diagnosed with any of the following: Cardiology Problems Congestive Heart Failure: No Hypertension: Yes Respiratory Problems Chronic Obstructive Pulmonary Disease (COPD): No Asthma: No Genital/Urinary Problems Renal Disease: No Endocrine Problems Diabetes Mellitus Type 1: No Diabetes Mellitus Type 2: Yes Blood Problems Sickle Cell Disease: No History of Present Illness HPI Narrative Susana is a 44 y/o male with PMHx of IDDM who comes in a follow up. He says that he is out of Novolog, and is requesting to get his insulin pens rather than vials that was prescribed to him recently. He says that he is still taking diflucan 400 mg qday for his Valley fever. He is also inquiring about GLP-1. He does use 6 units of Novolog TID and Lantus 30 units at night in addition to Januvia, SGLT-2 and Metformin 1000 mg BID. CGM appears to show average of 128 and he is in range 89% and appears to spike after meals, especially dinner Review of Systems Review of Systems Narrative Review of Systems: Constitutional: No fever, chills, fatigue, weakness, weight loss HEENT: No eye pain, vision loss, ear pain, hearing loss, dysphagia, Cardiovascular: No chest pain, palpitations, edema, pain with walking Respiratory: No cough, shortness of breath, wheezing GI: No NVD, abdominal pain, constipation, blood in stool, loss of appetite, heartburn Extremities: No presence of pitting edema MSK: No back pain, joint pain, joint swelling Neuro: No dizziness, numbness, weakness, headaches, seizures, tremors Psych: No anxiety, depression Objective/Exam Narrative Physical exam: General: AAOx3, NAD, HEENT: Moist mucous membranes, conjunctiva clear, EOMI, PERRLA, Cardiovascular: S1, S2, radial pulses +2 bilat, RRR Pulmonary: CTAB bilat no cough, no wheezing GI: No tenderness to light or deep palpitation, no guarding, rigidity, rebound tenderness or distension Extremities: No presence of trace or pitting edema in lower extremities bilaterally, dorsalis pedis pulses +2 bilaterally Neuro: AAOx3, no focal motor or sensory deficits in the UE or LE bilat Psych: Good judgement, thought and behavior Assessment & Plan Diagnosis / Problem List (1) Diabetes mellitus with insulin therapy: Status: Acute Assessment & Plan: Will check A1c This patient is requiring large amounts of insulin Will consider adding GLP-1 in future depending on A1c Told patient to increase mealltime insulin as it appears that is when he spikes Plan: 1. Novolog pens written for 12 units TID 2. Lantus pens written for 30 units qday 3. A1c upon next follow up visit (2) Coccidioidomycosis, pulmonary: Status: Acute Assessment & Plan: Continuing with diflucan therapy, will need to monitor LFTs Pt will need to be on therapy for at least 3-6 months Plan: 1 Liver panel upon next follow up 2. Continue Difllucan 400 mg everyday Orders: Orders Liver Panel Today Ambulatory Hemoglobin A1C Today Office Procedures [facility] Level of Care Nursing/Assessment Patient Status: Established Patient Nursing Assessment/Reassessment: Medication Reconciliation, Update PMH in EMR and Vital Signs Coordination of Care: Complex Care and Chronic Disease 1-5, Consent,records obtained, informed consent, Education Simp Pt/Fam and Staff clarify orders Established Patient Charge Established Patient Point Assignment: 85 Established Patient Point Charge: Level 3 (80-115)
== END 2024-06-22 13:15 | disposition home or self-care (01) ==
LOC: HODAHC 11:13
PROVIDERS: PCP Student in an Organized Health Care Education/Training Program; Referring Provider Student in an Organized Health Care Education/Training Program; Supervising Provider Internal Medicine; Visit Provider Student in an Organized Health Care Education/Training Program
DX: E11.9 Type 2 diabetes mellitus without complications (principal); B38.2 Pulmonary coccidioidomycosis, unspecified; Z79.4 Long term (current) use of insulin
CPT/HCPCS: 99213; G0463

== ENCOUNTER 2024-07-27 10:12 | Outpatient (AMB) | payer MEDICAID, SELFPAY ==
--- NOTE | 2024-07-27 10:19 | PD.RESCLINIC ---
Vital Signs 07/27/24 10:27 Height 1.6 m Height Method Stated Weight 64.183 kg Weight Measurement Method Standing Scale BMI 25.0 BP 127/76 Blood Pressure Source Automatic Cuff Blood Pressure Location Right Upper Arm Position Sitting Respiration 18 Pulse 81 Pulse Source Monitor Temp 98.2 F Temp Source Temporal Artery Scan Pulse Oximetry (%) 98 Oxygen Delivery Method Room Air Allergies/Meds Allergies & Medications Allergies No Known Allergies Allergy (Verified 07/28/24 13:13) Medication Reconciliation ibuprofen 600 mg tablet 600 mg PO Q8H PRN fever or pain #30 tabs 12/10/23 [Rx Confirmed 07/28/24] ibuprofen 600 mg tablet 600 mg PO Q8H PRN pain #20 tabs 02/29/24 [Rx Confirmed 07/28/24] acetaminophen 325 mg tablet (Tylenol) 650 mg (2 x 325 mg) PO TID PRN pain 7 days #30 tabs 05/01/24 [Rx Confirmed 07/28/24] doxycycline hyclate 100 mg capsule 100 mg PO BID #14 caps 05/01/24 [Rx Confirmed 07/28/24] epinephrine 0.3 mg/0.3 mL injection, auto-injector 0.3 ml subcut .1 PRN hypersensitivity reaction #2 ea 05/01/24 [Rx Confirmed 07/28/24] prednisone 50 mg tablet 50 mg PO QDAY #5 tabs 05/01/24 [Rx Confirmed 07/28/24] empagliflozin 10 mg tablet (Jardiance) 10 mg PO QAM #30 tabs 06/19/24 [Rx Confirmed 07/28/24] fluconazole 200 mg tablet 400 mg (2 x 200 mg) PO QDAY 45 days #90 tabs 06/19/24 [Rx Confirmed 07/28/24] metformin 1,000 mg tablet 1,000 mg PO BID #60 tabs 06/19/24 [Rx Confirmed 07/28/24] sitagliptin phosphate 25 mg tablet (Januvia) 25 mg PO QDAY #30 tabs 06/19/24 [Rx Confirmed 07/28/24] triamcinolone acetonide 0.5 % topical cream 1 applic topical BID 1 month #15 grams 06/19/24 [Rx Confirmed 07/28/24] insulin aspart U-100 100 unit/mL (3 mL) subcutaneous pen (Novolog FlexPen U-100 Insulin aspart) 12 unit (0.12 mL) subcut TID #15 mL 06/22/24 [Rx Confirmed 07/28/24] insulin glargine 100 unit/mL (3 mL) subcutaneous pen (Lantus Solostar U-100 Insulin) 30 unit (0.3 mL) subcut QPM 1 month #15 mL 06/22/24 [Rx Confirmed 07/28/24] blood-glucose sensor (Dexcom G7 Sensor device) #1 ea 07/27/24 [Rx Confirmed 07/28/24] fexofenadine 180 mg tablet 180 mg PO QDAY 1 month #30 tabs 07/27/24 [Rx Confirmed 07/28/24] losartan 25 mg tablet 25 mg PO QDAY #30 tabs 07/27/24 [Rx Confirmed 07/28/24] MA Intake Visit Data Collection New Patient or Established: Established Patient (seen at [facility] within 3 years) Seen by Clinical Staff ONLY (RN/MA): No Pain Present Currently: No Pain scale:: 0 Pain Scale Used: Hunt-Mason/Numerical Grades 7 8 Tutor Required: No PCP or OBGYN visit in last 3 months: Yes Smoking Status Smoking Status: Never smoker Immunization / Flu Flu Vaccine in the Last 12 Months: No Flu Vaccine Exclusion Criteria: No Exclusion Criteria Past Medical History Past Medical History CARDIAC: Positive Hypertension; Negative Cardiac Disorders or Congestive Heart Failure RESPIRATORY: Negative Chronic Obstructive Pulmonary Disease (COPD) or Asthma GENITOURINARY: Negative Renal Disease ENDOCRINE: Positive Diabetes Mellitus Type 2; Negative Diabetes Mellitus Type 1 HEMATOLOGIC: Negative Sickle Cell Disease Social History SMOKING STATUS: Smoking status: Never smoker Patient Portal Questionaires PHQ-9 PHQ-2 Over the last 2 weeks, how often have you been bothered by any of the following problems? 1. Little interest or pleasure in doing things: not at all PHQ-9 8. Moving or speaking so slowly that other people could have noticed? - Or the opposite - being so fidgety or restless that you have been moving around a lot more than usual: not at all Source: Developed by Drs. Matty Cruz, Monika Guadarrama, Chris Marley and colleagues, with an educational deonna from [employer]. Social History Tobacco History Smoking Status: Never smoker Review of Systems Report any current symptoms Only answer those that you have currently: Past Medical History Past Medical History Have you ever been diagnosed with any of the following: Cardiology Problems Congestive Heart Failure: No Hypertension: Yes Respiratory Problems Chronic Obstructive Pulmonary Disease (COPD): No Asthma: No Genital/Urinary Problems Renal Disease: No Endocrine Problems Diabetes Mellitus Type 1: No Diabetes Mellitus Type 2: Yes Blood Problems Sickle Cell Disease: No History of Present Illness HPI Narrative Patient is a 43-year-old male with past medical history of insulin-dependent diabetes mellitus, hypertension, hyperlipidemia, sarcoidosis diagnosed with biopsy, and 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 Patient's A1c is at 6, and LFTs are within range. Patient states he is feeling well aside from itchiness from the rash, which hydrocortisone cream did not seem to help much. Patient is requesting a medication for itchiness and pill form. Patient states he will no longer be able to follow-up in [place] for pulmonology for his sarcoidosis as a have changed company and his insurance is no longer accepted. Patient does mention left upper quadrant abdominal discomfort on deep inspiration and on deep palpation. CT done at [facility] was negative for any findings per [facility]. Patient denies any other active complaint at this time. Objective/Exam Narrative Physical exam: General: AAOx3, NAD, HEENT: Moist mucous membranes, conjunctiva clear, EOMI, PERRLA, Cardiovascular: S1, S2, radial pulses +2 bilat, RRR Pulmonary: CTAB bilat no cough, no wheezing GI: Mild tenderness to left upper quadrant on the palpation. No tenderness to light or deep palpitation in right lower quadrant, no guarding, rigidity, rebound tenderness or distension Extremities: No presence of trace or pitting edema in lower extremities bilaterally, dorsalis pedis pulses +2 bilaterally Skin: Dry scaly pinkish rash noted on upper and lower extremities. Multiple scabs with different stages of healing. Psych: Good judgement, thought and behavior Assessment & Plan Diagnosis / Problem List (1) Diabetes mellitus with insulin therapy: Status: Acute Assessment & Plan: A1c 6.0 Patient doing much better on freestyle nasir Plan: Continue Novolog 12 units TID Continue Lantus pens 30 units qday Continue metformin 1000 twice daily Continue Jardiance 25 mg daily Continue with losartan 25 mg daily (2) Coccidioidomycosis, pulmonary: Status: Acute Assessment & Plan: Continuing with diflucan therapy LFTs within normal limits Pt will need to be on therapy for at least 3-6 months Plan: Continue Difllucan 400 mg everyday ID consult pending (3) Rash: Status: Acute Assessment & Plan: Patient continues to complain of urticaria throughout his feet upper and lower extremities. Hydrocortisone cream did not seem to help. Patient did not receive fexofenadine from pharmacy, will try to refill. Rash likely from sarcoidosis VS cocci. Plan: Will resend fexofenadine 180 mg for urticaria (4) Sarcoidosis: Status: Acute Assessment & Plan: Patient diagnosed with sarcoidosis and confirmed via biopsy. Patient will no longer be able to follow-up at [place] [facility] as they are changing contract with insurance Plan: Patient will need referral for management of sarcoidosis to different [facility]. Orders: Referrals Pulmonology D86.9 - Sarcoidosis, unspecified Additional Plan Continue current medications, follow-up in 3 months. *Referral for [facility] for management of sarcoidosis Pending ID consultation Office Procedures [facility] Level of Care Nursing/Assessment Patient Status: Established Patient Nursing Assessment/Reassessment: Medication Reconciliation, Update PMH in EMR and Vital Signs Coordination of Care: Complex Care and Chronic Disease 1-5, Consent,records obtained, informed consent, Education Simp Pt/Fam and Staff clarify orders Established Patient Charge Established Patient Point Assignment: 85 Established Patient Point Charge: EP Level 3 (80-115)
[2024-07-27 10:27] VITALS: BP 127/76; PULSE 81; RESP 18; TEMP 36.8; O2SAT 98; BMI 25.0
== END 2024-07-27 11:39 | disposition home or self-care (01) ==
LOC: HODAHC 10:12
PROVIDERS: Supervising Provider Internal Medicine; Visit Provider Student in an Organized Health Care Education/Training Program
DX: E11.9 Type 2 diabetes mellitus without complications (principal); Z79.4 Long term (current) use of insulin; B38.9 Coccidioidomycosis, unspecified; L50.9 Urticaria, unspecified; D86.9 Sarcoidosis, unspecified
CPT/HCPCS: 99213; G0463

== ENCOUNTER 2024-08-21 16:40 | Outpatient (AMB) | payer MEDICAID, SELFPAY ==
--- NOTE | 2024-08-21 16:40 | ACNOTE_ITS ---
Allergies/Meds Allergies & Medications Allergies No Known Allergies Allergy (Verified 08/25/24 22:35) Medication Reconciliation ibuprofen 600 mg tablet 600 mg PO Q8H PRN pain #20 tabs 02/29/24 [Rx Confirmed 08/26/24] empagliflozin 10 mg tablet (Jardiance) 10 mg PO QAM #30 tabs 06/19/24 [Rx Con firmed 08/26/24] metformin 1,000 mg tablet 1,000 mg PO BID #60 tabs 06/19/24 [Rx Confirmed 08/26/24] sitagliptin phosphate 25 mg tablet (Januvia) 25 mg PO QDAY #30 tabs 06/19/24 [Rx Confirmed 08/26/24] triamcinolone acetonide 0.5 % topical cream 1 applic topical BID 1 month #15 grams 06/19/24 [Rx Confirmed 08/26/24] insulin aspart U-100 100 unit/mL (3 mL) subcutaneous pen (Novolog FlexPen U-100 Insulin aspart) 12 unit (0.12 mL) subcut TID #15 mL 06/22/24 [Rx Confirmed 08/26/24] insulin glargine 100 unit/mL (3 mL) subcutaneous pen (Lantus Solostar U-100 Insulin) 30 unit (0.3 mL) subcut QPM 1 month #15 mL 06/22/24 [Rx Confirmed 08/26/24] blood-glucose sensor (Dexcom G7 Sensor device) #1 ea 07/27/24 [Rx Confirmed 08/26/24] losartan 25 mg tablet 25 mg PO QDAY #30 tabs 07/27/24 [Rx Confirmed 08/26/24] acetaminophen 325 mg tablet (Pain Relief (acetaminophen)) 325 mg PO QID PRN fever or pain 1 month #90 tabs 08/29/24 [Rx] fluconazole 100 mg tablet (Diflucan) 400 mg (4 x 100 mg) PO BID 1 month #240 tabs 08/29/24 [Rx] MA Intake Visit Data Collection New Patient or Established: Established Patient (seen at [facility] within 3 years) Seen by Clinical Staff ONLY (RN/MA): No Pain Present Currently: No Pain scale:: 0 Pain Scale Used: Hunt-Mason/Numerical Bottom Stainer Required: No PCP or OBGYN visit in last 3 months: Yes Do You Feel Safe at Home: Yes Authorities Contacted: N/A Smoking Status Smoking Status: Never smoker For Televisit only Telemed Video/Phone Visit: Yes Verbal consent obtained for Telemed visit?: Yes Verbal Consent witness name: buck fine Telemed Video/Phone visit w/Clinical Staff: 21-30 min Immunization / Flu Flu Vaccine in the Last 12 Months: No Flu Vaccine Exclusion Criteria: No Exclusion Criteria Past Medical History Past Medical History CARDIAC: Positive Hypertension; Negative Cardiac Disorders or Congestive Heart Failure RESPIRATORY: Negative Chronic Obstructive Pulmonary Disease (COPD) or Asthma GENITOURINARY: Negative Renal Disease ENDOCRINE: Positive Diabetes Mellitus Type 2; Negative Diabetes Mellitus Type 1 HEMATOLOGIC: Negative Sickle Cell Disease Social History SMOKING STATUS: Smoking status: Never smoker Patient Portal Questionaires PHQ-9 PHQ-2 Over the last 2 weeks, how often have you been bothered by any of the following problems? 1. Little interest or pleasure in doing things: not at all PHQ-9 8. Moving or speaking so slowly that other people could have noticed? - Or the opposite - being so fidgety or restless that you have been moving around a lot more than usual: not at all Source: Developed by Drs. Matty Cruz, Monika Guadarrama, Crhis Marley and colleagues, with an educational deonna from [email or web address]. Social History Tobacco History Smoking Status: Never smoker Domestic Abuse History Do You Feel Safe at Home: Yes Review of Systems Report any current symptoms Only answer those that you have currently: Past Medical History Past Medical History Have you ever been diagnosed with any of the following: Cardiology Problems Congestive Heart Failure: No Hypertension: Yes Respiratory Problems Chronic Obstructive Pulmonary Disease (COPD): No Asthma: No Genital/Urinary Problems Renal Disease: No Endocrine Problems Diabetes Mellitus Type 1: No Diabetes Mellitus Type 2: Yes Blood Problems Sickle Cell Disease: No History of Present Illness HPI Narrative Spoke with pt over the phone. Expresses wanting referral to ophthalmology as a doctor he had seen recommended it. Denies any pain with eye movements, sometimes says he has blurry vision. He is also inquiring about continuing treatment of Diflucan for valley fever. He has no cough or other respiratory symptoms at this time. No other compllaints at this time. Review of Systems Review of Systems Narrative Review of Systems: Constitutional: No fever, chills, fatigue, weakness, weight loss HEENT: No eye pain, + blurry vision, no vision loss, ear pain, hearing loss, dysphagia, Cardiovascular: No chest pain, palpitations, edema, pain with walking Respiratory: No cough, shortness of breath, wheezing GI: No NVD, abdominal pain, constipation, blood in stool, loss of appetite, heartburn Extremities: No presence of pitting edema MSK: No back pain, joint pain, joint swelling Neuro: No dizziness, numbness, weakness, headaches, seizures, tremors Psych: No anxiety, depression Objective/Exam Narrative Physical exam: Physical Exam is limited at this time because a telehealth visit No exertional Dyspnea, no acute distress Assessment & Plan Diagnosis / Problem List (1) Diabetes mellitus with insulin therapy: Status: Acute Assessment & Plan: A1c 6.0 Patient doing much better on freestyle nasir Concern for diabetic retinopathy Plan: Continue Novolog 12 units TID Continue Lantus pens 30 units qday Continue metformin 1000 twice daily Continue Jardiance 25 mg daily Continue with losartan 25 mg daily *Opthamalogy Referral (2) Coccidioidomycosis, pulmonary: Status: Chronic Assessment & Plan: LFTs within normal limits Completed 3 months of Diflucan Plan: Will need to Reassess patient in clinic Repeat CMP for LFTs ID consult pending Orders: Orders Comprehensive Metabolic Panel 08/21/24 Referrals Ophthalmology Additional Assessment Attending note: I, Junior Deal MD, attest that I was physically present for the joe portions of the service completed via telehealth, and I reviewed and discussed the case with the resident and agree with the resident's plans of care as documented above. Junior Deal MD Physician Billing Established Patient Established Patient: E/M Level 2-CPT 03733 Office Procedures [facility] Level of Care Nursing/Assessment Patient Status: Established Patient Nursing Assessment/Reassessment: Medication Reconciliation and Update PMH in EMR Coordination of Care: Complex Care and Chronic Disease 1-5, 1 Ins Authorization, Ref for ancillary service and Staff clarify orders Established Patient Charge Established Patient Point Assignment: 85 Telehealth Telemed Phone/Video with patient at home & Dr,PA,CONTROL SYSTEMS DESIGNER: Yes
== END 2024-08-21 16:41 | disposition home or self-care (01) ==
LOC: HODAHC 16:40
PROVIDERS: Supervising Provider Internal Medicine
DX: H53.8 Other visual disturbances (principal); E11.9 Type 2 diabetes mellitus without complications; Z79.4 Long term (current) use of insulin; Z79.84 Long term (current) use of oral hypoglycemic drugs; B38.2 Pulmonary coccidioidomycosis, unspecified
CPT/HCPCS: 99212; G0463

== ENCOUNTER 2024-08-25 22:35 | Inpatient (IN) | payer MEDICAID, SELFPAY ==
[2024-08-25 22:47] VITALS: BP 122/70; PULSE 112; RESP 18; TEMP 39.5; O2SAT 96; BMI 24.9
--- NOTE | 2024-08-25 23:01 | XR_ITS ---
Examination: AP lateral chest 2 views TECHNIQUE: Portable AP lateral chest 2 views Date and time: August 25, 2024 11:32 PM INDICATIONS: Coughing and chest pain today FINDINGS: Pneumonia in the left lower lung zone Normal heart size Right lung clear IMPRESSION: Pneumonia in the left lower lung zone
--- NOTE | 2024-08-25 23:03 | PD.EDRME ---
Rapid Medical Screening Exam RME Arrival date/time: 08/25/24 22:35 44M with history of HTN, DM, and Valley Fever (recently finished 3 months of Diflucan) presents to ED with cough, N/V, dysuria, and lower ab/pelvic pain/ Chief Complaint: Flu Like Symptoms Time Seen by Provider: 08/26/24 00:21 Vital signs: Vital Signs Temperature 103.1 F H 08/25/24 22:47 Pulse Rate 112 H 08/25/24 22:47 Respiratory Rate 18 08/25/24 22:47 Blood Pressure 122/70 08/25/24 22:47 Pulse Oximetry (%) 96 08/25/24 22:47 Oxygen Delivery Method Room Air 08/25/24 22:47
[2024-08-25] MEDS: ONDANSETRON INJ 2 MG/ML INJ 2 ML 4 MG IV (23:25)
[2024-08-25] MEDS: SODIUM CHLORIDE 0.9% 1000 ML 1,000 ML 999 ML IV (23:25)
[2024-08-25] MEDS: cefTRIAXone/D5w 1gm IV premix 1 GM/50 ML BAG IV (23:26)
[2024-08-25 23:29] LABS: Lactate (Lactic Acid) 1.3 mMol/L (0.4-2.0)
[2024-08-25 23:34] LABS: Basophils # (Auto) 0.0 Thou/mm3 (0.0-0.2); Basophils % (Auto) 1 % (0-2.5); Eosinophils # (Auto) 0.4 Thou/mm3 (0.0-0.5); Eosinophils % (Auto) 6 % (0-10); Hematocrit 40.9 % (41.0-53.0); Hemoglobin 13.9 g/dL (13.5-16.0); Immature Granulocytes Auto 0.01 Thou/mm3 (0.00-0.00); Lymphocytes # (Auto) 1.4 Thou/mm3 (1.0-4.8); Lymphocytes % (Auto) 23 % (10-50); Mean Corpuscular HGB Conc 34.0 g/dl (31.0-37.0); Mean Corpuscular Hemoglobin 24.4 pg (25.0-35.0); Mean Corpuscular Volume 72 fL (80-100); Monocytes # (Auto) 0.7 Thou/mm3 (0.0-0.8); Monocytes % (Auto) 11 % (0-12); Neutrophils # (Auto) 3.4 Thou/mm3 (1.8-7.7); Neutrophils % (Auto) 58 % (37-80); Nucleated Red Blood Cell # 0.00 Thou/mm3 (0.00-0.00); Nucleated Red Blood Cell % 0 /100 WBC (0); Platelet Count 182 Thou/mm3 (140-440); RDW Standard Deviation 35.8 fL (35.1-43.9); Red Blood Count 5.69 Miln/mm3 (4.50-5.90); White Blood Count 5.8 Thou/mm3 (3.8-10.6)
[2024-08-25 23:56] VITALS: TEMP 37.3
[2024-08-25] MEDS: IBUPROFEN TAB 600 MG TABLET PO (23:56)
[2024-08-25 23:59] LABS: Collection Type, Urine Clean Catch; Squamous Epithelial Cell,Urine 0 /hpf (0-5)
[2024-08-26] VITALS (16 sets, daily range): BP systolic 122–147; BP diastolic 70–99; PULSE 94–110; RESP 13–95; TEMP 36.3–39.6; O2SAT 93–97; BMI 24.7
[2024-08-26 00:09] LABS: Alanine Aminotransferase 16 U/L (10-49); Albumin, Serum 4.1 gm/dL (3.5-5.0); Albumin/Globulin Ratio 1.5 (1.2-2.2); Alkaline Phosphatase 56 U/L (46-116); Anion Gap 13 (7-16); Aspartate Amino Transferase 18 U/L (0-34); BUN/Creatinine Ratio 14 Ratio (12-20); Bilirubin,Total 0.8 mg/dL (0.3-1.2); Blood Urea Nitrogen 13 mg/dL (9-23); Calcium 9.3 mg/dL (8.3-10.6); Calcium (Corrected) 9.3 mg/dL (8.5-10.1); Carbon Dioxide 18.4 mMol/L (20.0-31.0); Chloride 104 mMol/L (98-107); Creatinine (Component) 0.9 mg/dL (0.6-1.3); Estimated Creatinine Clearance 88.6 mL/min (>60); Globulin 2.8 gm/dL (2.3-3.5); Glucose 111 mg/dL (74-106); Lipase 30 U/L (12-53); Osmolality,Calculated 271 (275-295); Potassium 4.3 mMol/L (3.4-5.1); Procalcitonin 0.23 ng/ml (0.0-0.49); Sodium 135 mMol/L (136-145); Total Protein 6.9 gm/dL (5.7-8.2); eGFR > 60 See Note
--- NOTE | 2024-08-26 00:16 | PD.EDURI ---
Upper Respiratory Inf. RME/HPI General Chief Complaint: Flu Like Symptoms Stated Complaint: BODYACHES,FEVER,NAUSEA Time Seen by Provider: 08/26/24 00:21 Arrival date/time: 08/25/24 22:35 RME / HPI RME / HPI Narrative: 08/25/24 22:35 44M with history of HTN, DM, and Valley Fever (recently finished 3 months of Diflucan) presents to ED with cough, N/V, dysuria, and lower ab/pelvic pain/ ------ Dr. Bar?s Main ED Evaluation: 44yo male with a history of HTN, DM, Valley Fever (recently finished tx) presents to the ED for complaints of fever, chills, and generalized body aches x 3 days. Patient reports associated nausea and headache. He has been taking ibuprofen at home with some improvement. Patient denies any vomiting, sore throat, earache or any other associated symptoms. NKA. Related Data Previous Rx's ?Medication ?Instructions ?Recorded ibuprofen 600 mg tablet 600 mg PO Q8H PRN fever or pain 12/10/23 #30 tabs ibuprofen 600 mg tablet 600 mg PO Q8H PRN pain #20 tabs 02/29/24 acetaminophen 325 mg tablet 650 mg (2 x 325 mg) PO TID PRN 05/01/24 (Tylenol) pain 7 days #30 tabs doxycycline hyclate 100 mg capsule 100 mg PO BID #14 caps 05/01/24 epinephrine 0.3 mg/0.3 mL 0.3 ml subcut .1 PRN 05/01/24 injection, auto-injector hypersensitivity reaction #2 ea prednisone 50 mg tablet 50 mg PO QDAY #5 tabs 05/01/24 empagliflozin 10 mg tablet 10 mg PO QAM #30 tabs 06/19/24 (Jardiance) metformin 1,000 mg tablet 1,000 mg PO BID #60 tabs 06/19/24 sitagliptin phosphate 25 mg tablet 25 mg PO QDAY #30 tabs 06/19/24 (Januvia) triamcinolone acetonide 0.5 % 1 applic topical BID 1 month #15 06/19/24 topical cream grams insulin aspart U-100 100 unit/mL 12 unit (0.12 mL) subcut TID #15 mL 06/22/24 (3 mL) subcutaneous pen (Novolog FlexPen U-100 Insulin aspart) insulin glargine 100 unit/mL (3 30 unit (0.3 mL) subcut QPM 1 06/22/24 mL) subcutaneous pen (Lantus month #15 mL Solostar U-100 Insulin) blood-glucose sensor (Dexcom G7 #1 ea 07/27/24 Sensor device) fexofenadine 180 mg tablet 180 mg PO QDAY 1 month #30 tabs 07/27/24 losartan 25 mg tablet 25 mg PO QDAY #30 tabs 07/27/24 Allergies Allergy/AdvReac Type Severity Reaction Status Date / Time No Known Allergies Allergy Verified 08/25/24 22:35 Review of Systems Review of Systems Systems Reviewed: All systems reviewed, normal except as documented Past Medical History Past Medical History CARDIAC: Positive Hypertension; Negative Cardiac Disorders or Congestive Heart Failure RESPIRATORY: Negative Chronic Obstructive Pulmonary Disease (COPD) or Asthma GENITOURINARY: Negative Renal Disease ENDOCRINE: Positive Diabetes Mellitus Type 2; Negative Diabetes Mellitus Type 1 HEMATOLOGIC: Negative Sickle Cell Disease Social History SMOKING STATUS: Never smoker ED Exam Narrative Physical exam: GENERAL APPEARANCE: alert and oriented x 4, well-developed, well-nourished, no acute distress VITALS: All vitals were reviewed and the pulse ox is 96% on room air, which is normal according to my interpretation. HEENT: Normocephalic, atraumatic; pupils equal, round, reactive to light; EOMI; mucous membranes pink, moist; oropharynx clear NECK: Supple LUNGS: CTABL; no wheezes, no rales, no rhonchi HEART: Tachycardic, regular rhythm; normal S1, S2; no murmurs ABDOMEN: non distended; normal BS; soft, no tenderness, no guarding, no rebound; no masses, no organomegaly, no hernia BACK: no CVA tenderness EXTREMITIES: atraumatic; no edema NEUROLOGIC: awake; alert and oriented x4; cranial nerves II-XII grossly intact; no focal sensory or motor deficits PSYCHIATRIC: appropriate mood and affect SKIN: warm, diaphoretic, pale; no rashes Course Course Course Narrative: 2300: Sepsis alert initiated. Orders made at this time are congruent with ED Adult Sepsis Order List. Re-evaluation is to be completed. 0029: NS IVF infused. 0059: Sepsis reassessment performed consisting of lab review, vitals, physical exam including auscultation of heart, lungs, and visual evaluation of capillary refills, mucosal membranes and extremities. Patient met SIRS criteria however lactic, WBC, and pro wil are all within normal range. Reassessment complete, patient is not septic. Quality Measures Possible source: pulmonary Blood cultures ordered: yes Antibiotic ordered: Yes Pertinent labs: 08/25/24 23:00 Lactic Acid 1.3 mMol/L (0.4-2.0) Procalcitonin 0.23 ng/ml (0.0-0.49) sepsis Orders Category Date Time Status Bedside COVID-19 Antigen Test NOW Care 08/25/24 23:01 Active Bedside Influenza A&B Antigen Test NOW Care 08/25/24 23:02 Completed XR chest 2V Stat Exams 08/25/24 23:01 Completed Blood Culture (Lab) Stat Lab 08/25/24 23:05 Received CBC Stat Lab 08/25/24 23:00 Completed CMP [Comprehensive Metabolic Panel] Stat Lab 08/25/24 23:00 Completed Lactate (Lactic Acid) Stat Lab 08/25/24 23:00 Completed Lipase Stat Lab 08/25/24 23:00 Completed Procalcitonin Stat Lab 08/25/24 23:00 Completed Urinalysis, C/S if Indicated Stat Lab 08/25/24 23:54 Completed Acetaminophen Tab [Tylenol ES Tab] Med 08/25/24 23:04 Discontinued 1,000 mg PO X1 ONE Ibuprofen Tab [Motrin Tab] Med 08/25/24 23:47 Discontinued 600 mg PO X1 ONE Ondansetron Inj [Zofran Inj] Med 08/25/24 23:01 Discontinued 4 mg IV X1 ONE Sodium Chloride 0.9% 1000 ml [Ns] 1,000 ml Med 08/25/24 23:01 Discontinued IV 999 mls/hr Sodium Chloride 0.9% 1000 ml [Ns] 1,000 ml Med 08/26/24 00:53 Active IV 999 mls/hr cefTRIAXone/D5w 1gm IV premix [Rocephin/D5w 1gm IV Med 08/25/24 23:02 Discontinued premix] 1 gm in 50 ml IV X1 Vital Signs Vital signs: Vital Signs Temperature 103.1 F H 08/25/24 22:47 Pulse Rate 112 H 08/25/24 22:47 Respiratory Rate 18 08/25/24 22:47 Blood Pressure 122/70 08/25/24 22:47 Pulse Oximetry (%) 96 08/25/24 22:47 Oxygen Delivery Method Room Air 08/25/24 22:47 Upper Respiratory Infection MDM Narrative MDM Narrative:: Scribe Attestation: 08/25/24 Kelly Ovalle am scribing for and in the presence of Dr. Bar. Patient continues to be tachycardic despite receiving IV fluids. The Hospitalist was consulted and accepts the patient for admission. Patient data External records reviewed:: [facility] previous records (Per chart review, patient was seen here on 05/01/24 for allergic reaction.) Clinical information provided by:: patient Social determinants that could affect healthcare access:: none Patient has the following chronic illnesses:: HTN, DM, sarcoidosis, Valley Fever How is presenting disease/condition affected by chronic disease/condition?: uneffected by Evaluation data The following diagnostics were reviewed and interpreted by me:: lab results and radiology exam(s) Lab and/or radiology exams considered but not ordered:: none Interpretation Summary: CBC normal, Sodium 135, Lactic Acid normal, Procalcitonin normal, COVID/Influenza negative. ------- [place] [facility] Report Signed Patient: TIBURCIO DEL ROSARIO Record#: [id number] Birthdate: 1980 Age/Sex: 44 / M Location: [facility] Attending Dr: Ordering Physician: Chato Lopes PA-C Date of Service: 08/25/24 Procedure(s): XR chest 2V Accession Number(s): [id number] cc: Kvng Eaton MD; Chato Lopes PA-C~ Examination: AP lateral chest 2 views TECHNIQUE: Portable AP lateral chest 2 views Date and time: August 25, 2024 11:32 PM INDICATIONS: Coughing and chest pain today FINDINGS: Pneumonia in the left lower lung zone Normal heart size Right lung clear IMPRESSION: Pneumonia in the left lower lung zone Dictated By: Kvng Eaton MD Signed By: <Electronically signed by Kvng Eaton MD in OV> 08/25/24 [id number] Medications / Prescriptions Medications or Prescriptions considered but not ordered:: none Medication administrations:: Medication Administration History Sodium Chloride (Ns) 1,000 mls @ 999 mls/hr IV .Q1H1M ONE Stop: 08/26/24 01:53 Last Admin: 08/26/24 01:01 Dose: 999 mls/hr Documented By: ALEXANDRA Discontinued Medications Acetaminophen (Acetaminophen 500 Mg Tablet) 1,000 mg PO X1 ONE Stop: 08/25/24 23:05 Last Admin: 08/25/24 23:32 Dose: Not Given Documented By: ALEXANDRA Non-Admin Reason: Patient Refused Sodium Chloride (Ns) 1,000 mls @ 999 mls/hr IV .Q1H1M ONE Stop: 08/26/24 00:01 Last Infusion: 08/26/24 00:29 Dose: Infused Documented By: Admin: 08/25/24 23:25 Dose: 999 mls/hr Documented By: ALEXANDRA Ceftriaxone Sodium/Dextrose (Rocephin/D5w 1gm Iv Premix) 1 gm in 50 mls @ 100 mls/hr IV X1 ONE Stop: 08/25/24 23:31 Last Infusion: 08/26/24 00:02 Dose: Infused Documented By: Admin: 08/25/24 23:26 Dose: 100 mls/hr Documented By: ALEXANDRA Ibuprofen (Ibuprofen Tab 600 Mg Tablet) 600 mg PO X1 ONE Stop: 08/25/24 23:48 Last Admin: 08/25/24 23:56 Dose: 600 mg Documented By: ALEXANDRA Ondansetron HCl (Ondansetron Inj 2 Mg/Ml Inj 2 Ml) 4 mg IV X1 ONE; Protocol Stop: 08/25/24 23:02 Last Admin: 08/25/24 23:25 Dose: 4 mg Documented By: ALEXANDRA see above Consultations Consultation(s) initiated? (list below): Yes Consultation #1 (Physician, Specialty, Details): Discussed case with Dr. Adkins from Hospitalist service regarding admission. Discussed patients ED course, exam findings, labs, and radiology results. The Hospitalist agrees to accept the patient for admission. Time: 01:38 Diagnosis Upper Respiratory Differential Diagnosis: upper respiratory infection, viral infection, bronchitis, influenza and other (COVID, dehydration, sepsis, pneumonia) Most likely diagnosis given after review of the tests above:: see clinical impression below Admission Indicated Admission indicated?: indicated Admission Request Was there a request for admission?: Yes Admission Attestation Admission request attestation: Discussed case with [] from Hospitalist service regarding admission. Discussed patients ED course, exam findings, labs, and radiology results. The Hospitalist [agrees,declines] to accept the patient for admission. Disposition Plan Disposition Plan: Admit Critical Care Time Critical Care Time Critical Care Time: Yes Total Critical Care Time (min.): 35 Attestation: The high probability of sudden, clinically significant deterioration in the patient?s condition required the highest level of my preparedness to intervene urgently. The services I provided to this patient were to treat and/or prevent clinically significant deterioration. Services included the following: chart data review, reviewing nursing notes and/or old charts, documentation time, wealth management consultant collaboration regarding findings and treatment options, medication orders and management, direct patient care, vital sign assessments and ordering, interpreting and reviewing diagnostic studies and lab tests. Aggregate critical care time includes only time during which I was engaged in work directly related to the patient?s care, as described above, whether at bedside or elsewhere in the Emergency Department. It did not include time spent performing other reported procedures or the services of residents, students, nurses or physician assistants. Discharge Plan Plan Patient Disposition: Admit Acute Care w/in Hospital Prescriptions/Referrals Prescriptions/Med Rec: No Action insulin aspart U-100 [Novolog FlexPen U-100 Insulin] 100 unit/mL (3 mL) insulin pen 12 unit subcut TID Qty: 15 5RF Rx Instructions: Take as directed three times a day insulin glargine [Lantus Solostar U-100 Insulin] 100 unit/mL (3 mL) insulin pen 30 unit subcut QPM 30 Days Qty: 15 5RF Rx Instructions: Take as directed Jardiance 10 mg tablet 10 mg PO QAM Qty: 30 2RF metformin 1,000 mg tablet 1,000 mg PO BID Qty: 60 3RF Januvia 25 mg tablet 25 mg PO QDAY Qty: 30 3RF triamcinolone acetonide 0.5 % cream 1 applic topical BID 30 Days Qty: 15 4RF Rx Instructions: apply on affected areas 2 times per day (DME) Dexcom G7 Sensor Device See Rx Instructions .Route Qty: 1 4RF Rx Instructions: As directed losartan 25 mg tablet 25 mg PO QDAY Qty: 30 3RF fexofenadine 180 mg tablet 180 mg PO QDAY 30 Days Qty: 30 3RF Rx Instructions: take 1 tablet in the morning ibuprofen 600 mg tablet 600 mg PO Q8H PRN (Reason: fever or pain) Qty: 30 0RF ibuprofen 600 mg tablet 600 mg PO Q8H PRN (Reason: pain) Qty: 20 0RF doxycycline hyclate 100 mg capsule 100 mg PO BID Qty: 14 0RF acetaminophen [Tylenol] 325 mg tablet 650 mg PO TID PRN (Reason: pain) 7 Days Qty: 30 1RF prednisone 50 mg tablet 50 mg PO QDAY Qty: 5 0RF epinephrine 0.3 mg/0.3 mL auto-injector 0.3 ml subcut .1 PRN (Reason: hypersensitivity reaction) Qty: 2 0RF Rx Instructions: As directed, if needed for worsening allergic reaction Problem List Clinical Impression: Pneumonia, Sepsis Patient/Caregiver Discharge Instructions Print Language: Liberian Stand Alone Forms: Malena Award Info., Patient Portal Info Letter
[2024-08-26 00:33] LABS: Bilirubin,Urine Negative (Negative); Blood,Urine Trace (Negative); Clarity,Urine Clear (Clear/Hazy); Color,Urine Lt-Yellow (Lt Yel-Yel); Culture Indicated,Urine Not Indicated; Glucose, Urine 1+ (Negative); Ketones,Urine 1+ (Negative); Leukocyte Esterase,Urine Negative (Negative); Nitrite,Urine Negative (Negative); PH,Urine 6.0 (5.0-7.0); Protein,Urine Trace (Neg - Trace); RBC,Urine 6 /hpf (0-3); Specific Gravity,Urine 1.023 (1.001-1.035); Urobilinogen,Urine Negative mg/dL (0.0-1.0); WBC,Urine 2 /hpf (0-5)
[2024-08-26] MEDS: SODIUM CHLORIDE 0.9% 1000 ML 1,000 ML 999 ML IV (01:01)
--- NOTE | 2024-08-26 02:45 | ESHP_ITS ---
Documentation for date of: 08/26/24 HPI History of Present Illness Chief complaint: feels like I have the flu History of present illness: Susana Cobian is 44 yr male with PMH of insulin-dependent diabetes mellitus, hypertension, hyperlipidemia, sarcoidosis diagnosed with biopsy, and recent valley fever diagnosis on 05-01-2024 presenting to ED with chief complaint of fever and headaches. Symptoms started about 2 days ago with fever reaching to 103. Started also having some headaches and bodyaches. Did take ioxx-brp-lqeqiwk ibuprofen which mildly improved his symptoms helped with the fever. Endorses chest tenderness worse with palpation, coughing, shortness of breath, constipation. Denies any nausea or vomiting, no recent sick contacts. Cough is dry with no sputum. In ED, blood pressure stable, tachycardic 112, temperature 103.1 saturating well on room air. Hemoglobin 13.9, MCV 72, sodium 135, bicarb 18.4 glucose 111, normal lactic acid, normal Pro-Jered UA negative for UTI. Chest x-ray showed left lower lung pneumonia. Patient was given1 g ceftriaxone and azithromycin while in the ED. Patient to be admitted for observation and treatment of pneumonia. 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 Denies smoking, denies drinking. Meds: Empagliflozin 10 mg, ibuprofen 600 mg, 12 units aspart TID, glargine 30 units daily, losartan 25 mg daily, metformin 1000 mg BID, sitagliptin 25 mg daily Allergies: NKDA Review of Systems Review of Systems Systems Reviewed: All systems reviewed, normal except as documented Exam Vital Signs Temp Pulse Resp BP Pulse Ox O2 Del Method 98.9 F 98 13 137/81 H 93 L Blow-by 08/26/24 02:07 08/26/24 02:07 08/26/24 02:07 08/26/24 02:07 08/26/24 02:07 08/26/24 02:07 Narrative Exam General: Middle age male, appearing unwell, cooperative HEENT: NCAT, No JVD noted. Mucosa dry. Pupils are equal and reactive to light bilaterally Cardiovascular: Normal S1 and S2. Regular rate and rhythm. Respiratory: Lungs are clear to auscultation bilaterally. No wheezing or crackles heard. Abdomen: Soft, nontender, not distended, normal bowel sounds. Skin: Warm to touch, dry, no rashes noted Musculoskeletal: No gross injuries. Able to move all 4 extremities. No pitting edema Neuro: Alert and oriented x3. No focal neuro deficits. Psych: Normal affect and mood Results: Labs 08/25/24 23:00 08/25/24 23:00 Labs: Short CBC 08/25/24 Range/Units 23:00 WBC 5.8 (3.8-10.6) Thou/mm3 Hgb 13.9 (13.5-16.0) g/dL Hct 40.9 L (41.0-53.0) % Plt Count 182 (140-440) Thou/mm3 BMP 08/25/24 23:00 Sodium 135 L Potassium 4.3 Chloride 104 Carbon Dioxide 18.4 L BUN 13 Creatinine 0.9 Glucose 111 H Calcium 9.3 Liver Function 08/25/24 Range/Units 23:00 Total Bilirubin 0.8 (0.3-1.2) mg/dL AST 18 (0-34) U/L ALT 16 (10-49) U/L Alkaline Phosphatase 56 (46-116) U/L Albumin 4.1 (3.5-5.0) gm/dL Urine 08/25/24 Range/Units 23:54 Urine Color Lt-Yellow (Lt Yel-Yel) Urine Clarity Clear (Clear/Hazy) Urine pH 6.0 (5.0-7.0) Ur Specific [place] 1.023 (1.001-1.035) Urine Protein Trace (Neg - Trace) Urine Glucose (UA) 1+ A (Negative) Quality Measures Quality Measures sepsis Current suspected stage: ruled out Possible source: pulmonary Blood cultures ordered: yes Antibiotic ordered: Yes Medications Home Medications and Allergies Allergies Allergy/AdvReac Type Severity Reaction Status Date / Time No Known Allergies Allergy Verified 08/25/24 22:35 Visit Medications Acetaminophen (Acetaminophen Supp 650 Mg Supp) 650 mg MO Q6HR PRN PRN Reason: Fever > 100.3 or pain Stop: 09/25/24 02:38 Dextrose (Dextrose 50%-Water Inj 50 Ml Syringe) 25 ml IV Q15MIN PRN PRN Reason: BG 50-70 responsive npo pt Stop: 09/25/24 02:42 Dextrose (Dextrose 50%-Water Inj 50 Ml Syringe) 50 ml IV Q15MIN PRN PRN Reason: BG <50 OR BG <70 & pt unresponsive Stop: 09/25/24 02:42 Enoxaparin Sodium (Enoxaparin Sod Inj 40 Mg/0.4 Ml Syringe) 40 mg SC QDAY LUZ ELENA Stop: 09/09/24 08:59 Glucagon (Glucagon Inj 1 Mg Vial) 1 mg IM Q15MIN PRN PRN Reason: BG <70, and no IV access Insulin Human Lispro (Insulin Lispro (Admelog) 1 Unit/0.01 Ml Unit) 0 unit SC ACHS LUZ ELENA; Protocol Stop: 09/25/24 07:29 Ondansetron HCl (Ondansetron Inj 2 Mg/Ml Inj 2 Ml) 4 mg IVP Q6H PRN; Protocol PRN Reason: NAUSEA OR VOMITING Stop: 09/25/24 02:38 Sennosides (Senna Tablet) 1 tab PO QDAY PRN; Protocol PRN Reason: constipation Stop: 09/25/24 02:38 Discontinued Medications Acetaminophen (Acetaminophen 500 Mg Tablet) 1,000 mg PO X1 ONE Stop: 08/25/24 23:05 Last Admin: 08/25/24 23:32 Dose: Not Given Sodium Chloride (Ns) 1,000 mls @ 999 mls/hr IV .Q1H1M ONE Stop: 08/26/24 00:01 Last Infusion: 08/26/24 00:29 Dose: Infused Ceftriaxone Sodium/Dextrose (Rocephin/D5w 1gm Iv Premix) 1 gm in 50 mls @ 100 mls/hr IV X1 ONE Stop: 08/25/24 23:31 Last Infusion: 08/26/24 00:02 Dose: Infused Sodium Chloride (Ns) 1,000 mls @ 999 mls/hr IV .Q1H1M ONE Stop: 08/26/24 01:53 Last Infusion: 08/26/24 02:02 Dose: Infused Ibuprofen (Ibuprofen Tab 600 Mg Tablet) 600 mg PO X1 ONE Stop: 08/25/24 23:48 Last Admin: 08/25/24 23:56 Dose: 600 mg Ondansetron HCl (Ondansetron Inj 2 Mg/Ml Inj 2 Ml) 4 mg IV X1 ONE; Protocol Stop: 08/25/24 23:02 Last Admin: 08/25/24 23:25 Dose: 4 mg Assessment & Plan Plan Susana Cobian is 44 yr male with PMH of insulin-dependent diabetes mellitus, hypertension, hyperlipidemia, sarcoidosis diagnosed with biopsy, and recent valley fever diagnosis on 05-01-2024 presenting to ED with chief complaint of fever and headaches. Symptoms started about 2 days ago with fever reaching to 103. Patient to be admitted for observation for treatment of pneumonia. #CAP Chest x-ray showed left lower lung pneumonia. Having fever, SOB, cough, body aches for few days. No sick contacts. Labs stable. CURB 65--0. Outpatient tx okay. PSI--43 points. Class I risk (minimal) -IV ceftriaxone 1g daily -IV azithromycin 500mg daily -duonebs PRN #Insulin dependent type 2 diabetes, well controlled On admission initial glucose 111. No recent A1c on file. Patient takes Empagliflozin 10 mg, 12 units aspart TID, glargine 30 units daily, losartan 25 mg daily, metformin 1000 mg BID, sitagliptin 25 mg dailyfor diabetes at home. -Held home medications -Bedside blood glucose checks ACHS -Insulin lispro sliding scale -Carb consistent low diet -A1c pending #HTN #HLD Resumed Losartan 25 mg daily, no cholesterol agents. -montior BP #Valley fever Dignosed in April 2024, he has completed his course of fluconazole -continue to monitor Health maintenance: Dispo:tele, IV abx for PNA FEN: low carb DVT prophylaxis: Lovenox CODE STATUS: Full code The patient's management plan was discussed with my attending physician Dr. Adkins. Michelle Dorado, PGY-2 Attending Provider Attestation/Addendum After examination of the patient and review of the clinical data I feel that this patient needs to be observed in the hospital for further treatment/evaluation. I have discussed and was present for the essential components of the history, physical examination, diagnosis, and treatment plan with the resident. I agree with the patient's care as documented by the resident and amended herein by me. Aniceto Adkins DO. Although this document has been carefully reviewed, there may still be some phonetic and other typographical errors. These errors are purely grammatical due to imperfections in the software program and should not be construed in any way to compromise the substance of the patient's medical care during this visit. Patient seen and evaluated in the ED. the patient is a 44-year-old male with significant past medical history of hypertension, insulin-dependent diabetes mellitus, recent diagnosis and treatment of coccidiomycosis, sarcoidosis and hyperlipidemia, presented to the ED for nausea, vomiting and cough as well as generalized body weakness. Patient subsequently admitted for left lower lobe pneumonia and tachycardia. Of note, patient was recently treated for pneumonia in mid July on an outpatient basis In the ED the patient was tachycardic with a pulse of approximately 112 which was persistent, Tmax of 101.4 however the patient was on room air, SpO2 96%. CBC largely unremarkable, CMP demonstrated a bicarb of 18, urinalysis unremarkable, chest x-ray demonstrating a left lower lobe pneumonia. Patient subsequently admitted to [facility] [place] for pneumonia, metabolic acidosis and sinus tachycardia. Patient was determined not to be septic. For the patient's pneumonia likely secondary to gram-negative organisms versus atypical organisms, we did start him on azithromycin and ceftriaxone and will continue IVF. Blood cultures ordered and drawn in the ED. Discharge likely in 1 to 2 days pending clinical improvement
[2024-08-26] MEDS: AZITHROMYCIN INJ 500 MG in SODIUM CHLORIDE 0.9% 250 ML 250 ML 250 MG IV (03:00)
[2024-08-26] MEDS: ACETAMINOPHEN 325 MG TABLET 650 MG PO ×3 (06:09→23:57)
[2024-08-26] MEDS: cefTRIAXone/D5w 1gm IV premix 1 GM/50 ML BAG IV ×2 (09:30→15:54)
[2024-08-26] MEDS: LOSARTAN POTASSIUM 25 MG TABLET PO (09:31)
[2024-08-26] MEDS: INSULIN GLARGINE (Lantus) 5 UNIT/0.05 ML (PER 5 UNITS) 30 UNIT SC (09:31)
[2024-08-26] MEDS: FLUCONAZOLE 100 MG TABLET 400 MG PO ×2 (12:05→20:34)
--- NOTE | 2024-08-26 13:17 | EKG_ITS ---
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
--- NOTE | 2024-08-26 13:18 | ESPR_ITS ---
Documentation for date of: 08/26/24 Subjective Subjective Interval history: Pt examined by bedside today. He is a known patient to be in outpatient clinic setting. He reports having headache and fevers, described as throbbing, worsened with light, located in his frontal area with associated neck stiffness. He denies ever having symptoms like this before. He denies any recent sick contacts, or travel history. He says that he recently stopped taking fluconazole, and that he has seen a lung doctor in the past. He denies any nausea and vomiting at this time. He does still report having headache and fevers which are the main symptoms bothering him. He denies any SOB at this time. Complains of some constipation. No other complaints at this time. Exam Vital Signs Temp Pulse Resp BP Pulse Ox O2 Del Method 101.6 F H 105 H 15 147/87 H 96 Room Air 08/26/24 12:14 08/26/24 12:00 08/26/24 12:00 08/26/24 12:00 08/26/24 12:00 08/26/24 08:00 Narrative Exam General: AAOx3,middle aged male, in mild distress HEENT: Moist mucous membranes, conjunctiva clear, EOMI, PERRLA, however sensitive to light, neck stiffness w/ flexion Cardiovascular: S1, S2, radial pulses +2 bilat, RRR Pulmonary: CTAB bilat no cough, no wheezing GI: No tenderness to light or deep palpitation, no guarding, rigidity, rebound tenderness or distension Extremities: No presence of trace or pitting edema in lower extremities bilaterally, dorsalis pedis pulses +2 bilaterally Neuro: AAOx3, photophobia, nuchal rigidity, possible kernig sign Psych: Good judgement, thought and behavior Objective Labs 08/27/24 04:55 08/27/24 04:55 Labs: Laboratory Results - last 24 hr 08/25/24 08/25/24 23:00 23:54 WBC 5.8 RBC 5.69 Hgb 13.9 Hct 40.9 L MCV 72 L MCH 24.4 L MCHC 34.0 RDW Std Deviation 35.8 Plt Count 182 Neut % (Auto) 58 Lymph % (Auto) 23 [place] % (Auto) 11 Eos % (Auto) 6 Baso % (Auto) 1 Neut # (Auto) 3.4 Lymph # (Auto) 1.4 [place] # (Auto) 0.7 Eos # (Auto) 0.4 Baso # (Auto) 0.0 Immature Gran # (Auto) 0.01 H Absolute Nucleated RBC 0.00 Immature Gran % 0 Nucleated RBC % 0 Sodium 135 L Potassium 4.3 Chloride 104 Carbon Dioxide 18.4 L Anion Gap 13 BUN 13 Creatinine 0.9 Estim Creat Clear Calc 88.6 eGFR > 60 BUN/Creatinine Ratio 14 Glucose 111 H Calculated Osmolality 271 L Lactic Acid 1.3 Calcium 9.3 Corrected Calcium 9.3 Total Bilirubin 0.8 AST 18 ALT 16 Alkaline Phosphatase 56 Total Protein 6.9 Albumin 4.1 Globulin 2.8 Albumin/Globulin Ratio 1.5 Lipase 30 Procalcitonin 0.23 Ur Collection Type Clean Catch Urine Color Lt-Yellow Urine Clarity Clear Urine pH 6.0 Ur Specific [place] 1.023 Urine Protein Trace Urine Glucose (UA) 1+ A Urine Ketones 1+ A Urine Blood Trace Urine Nitrite Negative Urine Bilirubin Negative Urine Urobilinogen (Auto) Negative Ur Leukocyte Esterase Negative Urine RBC 6 H Urine WBC 2 Ur Squamous Epith Cells 0 Urine Bacteria None Ur Culture Indicated? Not Indicated Quality Measures Quality Measures sepsis Current suspected stage: sepsis Possible source: pulmonary Blood cultures ordered: yes Antibiotic ordered: Yes Assessment & Plan Assessment Current Active Medications: Generic Name Dose Route Start Last Admin Trade Name Freq PRN Reason Stop Dose Admin Acetaminophen 650 mg 08/26/24 10:29 08/26/24 10:51 Acetaminophen 325 Mg Tablet PO 09/25/24 10:28 650 mg Q6HR PRN Administration FEVER >101 Dextrose 25 ml 08/26/24 02:43 Dextrose 50%-Water Inj 50 Ml Syringe IV 09/25/24 02:42 Q15MIN PRN BG 50-70 responsive npo pt Dextrose 50 ml 08/26/24 02:43 Dextrose 50%-Water Inj 50 Ml Syringe IV 09/25/24 02:42 Q15MIN PRN BG <50 OR BG <70 & pt unresponsive Docusate Sodium 100 mg 08/26/24 13:30 Docusate Sod 100 Mg Capsule PO 09/25/24 13:29 QDAY [facility] Protocol Enoxaparin Sodium 40 mg 08/26/24 09:00 08/26/24 09:37 Enoxaparin Sod Inj 40 Mg/0.4 Ml Syringe SC 09/09/24 08:59 Not Given QDAY [facility] Fluconazole 400 mg 08/26/24 21:00 Fluconazole 100 Mg Tablet PO 09/02/24 20:59 BID LUZ ELENA Glucagon 1 mg 08/26/24 02:43 Glucagon Inj 1 Mg Vial IM Q15MIN PRN BG <70, and no IV access Ceftriaxone Sodium/Dextrose 1 gm in 50 mls @ 100 mls/hr 08/26/24 09:00 08/26/24 09:30 Rocephin/D5w 1gm Iv Premix IV 09/02/24 08:59 100 mls/hr QDAY LUZ ELENA Administration Lactated Ringer's 1,000 mls @ 75 mls/hr 08/26/24 12:51 Lactated Ringers IV 08/27/24 02:10 .[id number] LUZ ELENA Acetaminophen 1,000 mg in 100 mls @ 250 mls/hr 08/26/24 12:56 Ofirmev Inj IV 08/26/24 13:19 X1 ONE Ceftriaxone Sodium 1 gm/ 50 mls @ 100 mls/hr 08/26/24 13:09 Sodium Chloride IV 08/26/24 13:38 X1 ONE Ceftriaxone Sodium 2 gm/ 50 mls @ 100 mls/hr 08/26/24 21:00 Sodium Chloride IV 09/02/24 20:59 BID LUZ ELENA Ampicillin Sodium 2,000 mg/ 100 mls @ 200 mls/hr 08/26/24 13:15 Sodium Chloride IV 09/02/24 13:14 Q4H LUZ ELENA Acyclovir Sodium 655 mg/ 113.1 mls @ 100 mls/hr 08/26/24 14:00 Sodium Chloride IV 09/02/24 13:59 Q8HR [facility] Insulin Glargine 30 unit 08/26/24 09:00 08/26/24 09:31 Insulin Glargine (Lantus) 5 Unit/0.05 Ml (Per 5 Units) SC 09/25/24 08:59 30 unit QDAY LUZ ELENA Administration Insulin Human Lispro 0 unit 08/26/24 07:30 08/26/24 07:30 Insulin Lispro (Admelog) 1 Unit/0.01 Ml Unit SC 09/25/24 07:29 Not Given AC [facility] Protocol Losartan Potassium 25 mg 08/26/24 09:00 08/26/24 09:31 Losartan Potassium 25 Mg Tablet PO 09/25/24 08:59 25 mg QDAY LUZ ELENA Administration Ondansetron HCl 4 mg 08/26/24 02:39 Ondansetron Inj 2 Mg/Ml Inj 2 Ml IVP 09/25/24 02:38 Q6H PRN NAUSEA OR VOMITING Protocol Pharmacy Consult 1 each 08/26/24 13:15 Vancomycin Pharmacy To Dose 1 Each Each IV 09/25/24 13:14 QDAY LUZ ELENA Sennosides 1 tab 08/26/24 02:39 Senna Tablet PO 09/25/24 02:38 QDAY PRN constipation Protocol Plan Assessment Susana Cobian is 44 yr male with PMH of insulin-dependent diabetes mellitus, hypertension, hyperlipidemia, sarcoidosis diagnosed with biopsy, and recent valley fever diagnosis on 05-01-2024 who is currently admitted for intractable headache and CAP. #Intractable headache #Persistent fevers DDx: Meningitis, brain abscess, migraine, cluster headache Patient does present with history of valley fever that has been treated Patient does have history of being immunosuppressed including history of diabetes and long-term use of steroids which he has been off for 6 months. Patient does display photophobia and nuchal rigidity, however photophobic can also be seen in migraines Patient does have persistent fevers that do not seem to be controlled with antipyretics including oral Tylenol A temperature of 103 would be seen in more infection such as meningitis or brain abscess, however no pneumonia can still cause these fevers Considering patient's presentation, patient with need to have lumbar puncture to rule out meningitis, however this sample may not show anything because patient has been treated with fluconazole if it is a fungal source Patient may have cocciodmycosides meningitis or bacterial meningitis Nevertheless we must not delay treatment and also will need to rule out bacterial source as well Pt has had fevers above 101 consistently not controlled with antipyretics Plan: ? Neurology consulted, appreciate recs ? Lumbar puncture ? Acyclovir IV 10 mg/kg every 8 hours ? Rocephin 2 g IV twice daily ? Diflucan 400 mg by mouth twice daily ? Ampicillin 2000 mg every 4 hours ? Vancomycin pharmacy to dose 60 mg/kg/day divided in 4 doses ? Antipyretics including IV Tylenol and Toradol 15 mg IV every 6 hours scheduled ? Head CT ? Trend CMP ? EKG to assess for QTc prolongation ? Multimodal pain management ? Follow-up blood cultures ? Consider ID consult #CAP #History of valley fever #History of sarcoidosis Chest x-ray showed left lower lung pneumonia. Having fever, SOB, cough, body aches for few days. No sick contacts. Labs stable. CURB 65--0. Outpatient tx okay. PSI--43 points. Class I risk (minimal) Plan: ? Rocephin as above ? MRSA screen ? Sputum culture ? Antitussives ? Diflucan as above #Insulin dependent type 2 diabetes, well controlled Uses 30 units of Lantus at home every morning Plan: ? Sliding scale insulin ? Hypoglycemic protocol in place ? Blood sugar checks with meals ? Lantus 30 units every morning #HTN #HLD Plan: ? Resume home losartan 25 mg #Health Maintenance Disposition: MedSurg DVT prophylaxis: Lovenox GI prophylaxis:None indicated at this time Diet: Carb Consistent Low CODE STATUS: Full Patient seen and care discussed with my attending physician, Dr. Avis Varela, PGY-2 Attending Provider Attestation/Addendum I have examined the patient, reviewed labs and imaging findings, discussed the case with the resident(s), and reviewed entered orders. I agree with the plan of care as outlined in this note, with these additional summaries/recommendations: Patient seen at bedside. No acute overnight events. Today patient endorses severe frontal headache, photophobia, and neck stiffness. I am concerned patient may have developed cocci meningitis. Lower suspicion for bacterial meningitis but nonetheless we will proceed with treatment and patient is pending lumbar puncture. Neurology consulted for LP. We will send CSF for analysis and start isolation precautions. Patient has history of valley fever and completed 3 months of fluconazole. He has noted to be spiking recurrent fevers. Continue Tylenol as needed. Start high-dose fluconazole. Patient was also noted to have left lower lobe infiltrate with possible superimposed bacterial pneumonia. We will continue IV antibiotics. Bilateral lower extremity rash noted possibly indicating disseminated cocci. We will follow-up new titers when available and obtain infectious disease consult. Patient has history of pulmonary sarcoidosis status post lung biopsy. Sarcoidosis seems stable and we will defer antibiotics in the setting of valley fever and infection. Continue insulin sliding scale for diabetes mellitus type 2 with Accu-Cheks. Target blood sugar of 140-180 while hospitalized. Diabetic diet. Patient updated on the plan and in agreement. All questions answered to satisfaction. Please see residents note for additional details and management. Dr. Avis MD
--- NOTE | 2024-08-26 13:54 | XR_ITS ---
Examination: CT brain head without contrast. 2-D sagittal coronal reconstructions Date and time of exam:August 26, 2024 1452 hrs. Indications: Onset headache and fever today CTDI: vol (mGy):47.4 DLP: (mGycm):937 Technique: Multiple CT axial sections of the brain have been obtained, 5 mm slice thickness. Contrast has not been administered. 2-D sagittal, coronal reconstructions have been obtained Low dose protocols were performed. One or more of the following dose reduction techniques were used; automated exposure control, adjustment of the mA and/or KV according to patient size, use of iterative reconstruction technique. Findings: No significant ventricular enlargement. Intra-axial or extra-axial hemorrhage density is not seen. No mass effect or midline shift Basal cisterns are not remarkable. Fourth ventricle is midline. Cranial vault intact. Impression: Negative for acute hemorrhage, mass effect or midline shift Mild chronic ethmoid sinusitis
[2024-08-26] MEDS: DOCUSATE SOD 100 MG CAPSULE PO (14:20)
[2024-08-26] MEDS: KETOROLAC INJ 30 MG/ML VIAL 15 MG IVP ×3 (14:32→23:56)
[2024-08-26] MEDS: RINGERS LACTATED 1000 ML 1,000 ML 75 ML IV (15:59)
[2024-08-26] MEDS: VANCOMYCIN/NS 1 GM IVPB 200 ML IV ×2 (15:59→21:12)
[2024-08-26] MEDS: ACYCLOVIR INJ 650 MG in SODIUM CHLORIDE 0.9% 100 ML 99.902 MG IV (15:59)
[2024-08-26] MEDS: Ampicillin Inj 2,000 MG in SODIUM CHLORIDE 0.9% (POP) 100 ML 200 MG IV ×2 (16:33→20:34)
[2024-08-26] MEDS: ACETAMINOPHEN IVPB 1,000 MG/100 ML VIAL 250 MG IV (17:05)
[2024-08-26 20:22] LABS: Coccid Serology, CF CSF (UCD)* See Sep Rpt
[2024-08-26 20:30] LABS: CSF Cell Count Tube # Tube # 4; CSF Color Colorless (Colorless); CSF, Appearance Clear (Clear)
[2024-08-26 20:31] LABS: CSF Red Blood Cell 1000 /cmm; CSF White Blood Cell 7 /cmm
[2024-08-26 20:34] LABS: CSF Mononuclear 86 %; CSF Polynuclear WBC 14 %
[2024-08-26] MEDS: cefTRIAXone 2 GM in SODIUM CHLORIDE 0.9% (Popper) 50 ML IV (20:34)
[2024-08-26 20:41] LABS: Glucose,CSF 70 mg/dL (40-70); Protein Total,CSF 67 mg/dL (8-32)
[2024-08-26] MEDS: ACYCLOVIR INJ 650 MG in SODIUM CHLORIDE 0.9% 100 ML 99.9 MG IV (21:11)
[2024-08-26 21:25] LABS: CSF Gram Stain Alert Gram Stain Completed
--- NOTE | 2024-08-26 23:14 | PD.NEUROCONS ---
History of Present Illness Data of Consult Requesting Physician: Gaurav Adkins DO Primary Care Provider: Trevor Varela MD Consult Narrative cc:: cc: Gaurav Adkins DO Review of Systems Review of Systems Systems Reviewed: All systems reviewed, normal except as documented Past Medical History Past Medical History CARDIAC: Positive Hypertension; Negative Cardiac Disorders or Congestive Heart Failure RESPIRATORY: Negative Chronic Obstructive Pulmonary Disease (COPD) or Asthma GENITOURINARY: Negative Renal Disease ENDOCRINE: Positive Diabetes Mellitus Type 2; Negative Diabetes Mellitus Type 1 HEMATOLOGIC: Negative Sickle Cell Disease Social History SMOKING STATUS: Never smoker Meds Home Medications and Allergies Allergies Allergy/AdvReac Type Severity Reaction Status Date / Time No Known Allergies Allergy Verified 08/25/24 22:35 Exam - Neurology Vital Signs Temp Pulse Resp BP Pulse Ox O2 Del Method 99.6 F 96 18 142/87 H 96 Room Air 08/26/24 23:09 08/26/24 20:00 08/26/24 20:00 08/26/24 20:00 08/26/24 20:00 08/26/24 20:00 Results Labs 08/25/24 23:00 08/25/24 23:00 Labs: Short CBC 08/25/24 Range/Units 23:00 WBC 5.8 (3.8-10.6) Thou/mm3 Hgb 13.9 (13.5-16.0) g/dL Hct 40.9 L (41.0-53.0) % Plt Count 182 (140-440) Thou/mm3 BMP 08/25/24 23:00 Sodium 135 L Potassium 4.3 Chloride 104 Carbon Dioxide 18.4 L BUN 13 Creatinine 0.9 Glucose 111 H Calcium 9.3 Liver Function 08/25/24 Range/Units 23:00 Total Bilirubin 0.8 (0.3-1.2) mg/dL AST 18 (0-34) U/L ALT 16 (10-49) U/L Alkaline Phosphatase 56 (46-116) U/L Albumin 4.1 (3.5-5.0) gm/dL Urine 08/25/24 Range/Units 23:54 Urine Color Lt-Yellow (Lt Yel-Yel) Urine Clarity Clear (Clear/Hazy) Urine pH 6.0 (5.0-7.0) Ur Specific [place] 1.023 (1.001-1.035) Urine Protein Trace (Neg - Trace) Urine Glucose (UA) 1+ A (Negative) Assessment & Plan Assessment and plan (1) Meningitis: Status: Acute Assessment and plan: FU with CSF analysis Continue with antibiotics as per protocol until the culture comes back.\ Increased Diflucan to 400 mg bid with close monitoring of the LFT (2) Coccidioidomycosis, pulmonary: Status: Chronic Assessment and plan: continue Diflucan (3) Hypertension associated with diabetes: Status: Chronic Assessment and plan: continue current meds, mgt by primary team.
[2024-08-27] VITALS (60 sets, daily range): BP systolic 121–160; BP diastolic 75–89; PULSE 69–113; RESP 0–65; TEMP 36.3–39.6; O2SAT 96–98
--- NOTE | 2024-08-27 00:02 | PD.EVENT ---
Documentation for date of: 08/26/24 Date of procedure: 08/26/24 Pre-op diagnosis: Meningitis Post-op diagnosis: Same Consent signed by: Patient Position: lateral decubitus and sitting Prep: betadine Anesthesia: 1 % Lidocaine Sedation: none Needle size: 22ga Needle length: 3.5 Interspace: L4-5 Number of attempts: 4 Opening pressure: not done Fluids mLs collected: 16 Fluid description: clear Complications: No Patient tolerance: Patient tolerated the procedure well. Procedure performed by: John Penn Condition: Stable Disposition: no change
[2024-08-27] MEDS: Ampicillin Inj 2,000 MG in SODIUM CHLORIDE 0.9% (POP) 100 ML 200 MG IV ×6 (04:20→20:10)
[2024-08-27] MEDS: ACYCLOVIR INJ 650 MG in SODIUM CHLORIDE 0.9% 100 ML 99.9 MG IV ×3 (05:08→21:05)
[2024-08-27] MEDS: VANCOMYCIN/NS 1 GM IVPB 200 ML IV (05:08)
[2024-08-27] MEDS: KETOROLAC INJ 30 MG/ML VIAL 15 MG IVP ×3 (05:08→17:16)
[2024-08-27 06:33] LABS: Basophils # (Auto) 0.0 Thou/mm3 (0.0-0.2); Basophils % (Auto) 1 % (0-2.5); Eosinophils # (Auto) 0.1 Thou/mm3 (0.0-0.5); Eosinophils % (Auto) 2 % (0-10); Hematocrit 38.8 % (41.0-53.0); Hemoglobin 12.9 g/dL (13.5-16.0); Immature Granulocytes Auto 0.02 Thou/mm3 (0.00-0.00); Lymphocytes # (Auto) 1.8 Thou/mm3 (1.0-4.8); Lymphocytes % (Auto) 31 % (10-50); Mean Corpuscular HGB Conc 33.2 g/dl (31.0-37.0); Mean Corpuscular Hemoglobin 24.8 pg (25.0-35.0); Mean Corpuscular Volume 75 fL (80-100); Monocytes # (Auto) 0.8 Thou/mm3 (0.0-0.8); Monocytes % (Auto) 14 % (0-12); Neutrophils # (Auto) 3.0 Thou/mm3 (1.8-7.7); Neutrophils % (Auto) 52 % (37-80); Nucleated Red Blood Cell # 0.00 Thou/mm3 (0.00-0.00); Nucleated Red Blood Cell % 0 /100 WBC (0); Platelet Count 164 Thou/mm3 (140-440); RDW Standard Deviation 36.8 fL (35.1-43.9); Red Blood Count 5.21 Miln/mm3 (4.50-5.90); White Blood Count 5.8 Thou/mm3 (3.8-10.6)
[2024-08-27 07:10] LABS: Alanine Aminotransferase 17 U/L (10-49); Albumin, Serum 3.4 gm/dL (3.5-5.0); Albumin/Globulin Ratio 1.4 (1.2-2.2); Alkaline Phosphatase 45 U/L (46-116); Anion Gap 9 (7-16); Aspartate Amino Transferase 19 U/L (0-34); BUN/Creatinine Ratio 11 Ratio (12-20); Bilirubin,Total 0.5 mg/dL (0.3-1.2); Blood Urea Nitrogen 9 mg/dL (9-23); Calcium 8.4 mg/dL (8.3-10.6); Calcium (Corrected) 8.9 mg/dL (8.5-10.1); Carbon Dioxide 25.8 mMol/L (20.0-31.0); Chloride 105 mMol/L (98-107); Creatinine (Component) 0.8 mg/dL (0.6-1.3); Estimated Creatinine Clearance 99.7 mL/min (>60); Globulin 2.5 gm/dL (2.3-3.5); Glucose 111 mg/dL (74-106); Magnesium 1.2 mg/dL (1.6-2.6); Osmolality,Calculated 279 (275-295); Phosphorous 2.9 mg/dL (2.4-5.1); Potassium 3.5 mMol/L (3.4-5.1); Sodium 140 mMol/L (136-145); Total Protein 5.9 gm/dL (5.7-8.2); eGFR > 60 See Note
[2024-08-27] MEDS: LOSARTAN POTASSIUM 25 MG TABLET PO (08:18)
[2024-08-27] MEDS: FLUCONAZOLE 100 MG TABLET 400 MG PO ×2 (08:18→20:12)
[2024-08-27] MEDS: cefTRIAXone 2 GM in SODIUM CHLORIDE 0.9% (Popper) 50 ML IV ×2 (08:19→20:11)
[2024-08-27] MEDS: ENOXAPARIN SOD INJ 40 MG/0.4 ML SYRINGE SC (08:19)
[2024-08-27] MEDS: DOCUSATE SOD 100 MG CAPSULE PO (08:19)
[2024-08-27] MEDS: INSULIN GLARGINE (Lantus) 5 UNIT/0.05 ML (PER 5 UNITS) 30 UNIT SC (08:19)
[2024-08-27] MEDS: Magnesium Sulfate 4 GM Ivpb 4 GM/50 ML BAG IV (09:01)
[2024-08-27] MEDS: POTASSIUM CHL 10 mEq IVPB 10 MEQ/100 ML BAG 100 MEQ IV ×4 (09:01→11:55)
[2024-08-27 11:40] LABS: Cocci Serology, IgM Positive (Negative)
[2024-08-27 11:41] LABS: Cocid Sro, CF/ID (UCD) NO CHG* See Sep Rpt
[2024-08-27 14:34] LABS: Vancomycin,Trough 8.9 mcg/mL (5.0-10.0)
--- NOTE | 2024-08-27 14:44 | PD.RESPRO ---
Documentation for date of: 08/27/24 Subjective Subjective Interval history: No acute overnight events. Reported no new or worsening symptoms. Still has nuchal rigidity, but pain seems to have improved slightly. Ambulating independently in the room without lightheadedness or dizziness. Tolerating oral intake without nausea or vomiting. Having regular bowel movements. Exam Vital Signs Temp Pulse Resp BP Pulse Ox O2 Del Method 97.5 F 88 19 139/84 H 97 Room Air 08/27/24 12:00 08/27/24 12:00 08/27/24 12:08/27/24 12:08/27/24 12:08/27/24 12:00 Narrative Exam General: AAOx3,middle aged male, in mild distress HEENT: Moist mucous membranes, conjunctiva clear, EOMI, PERRLA, however sensitive to light, neck stiffness w/ flexion Cardiovascular: S1, S2, radial pulses +2 bilat, RRR Pulmonary: CTAB bilat no cough, no wheezing GI: No tenderness to light or deep palpitation, no guarding, rigidity, rebound tenderness or distension Extremities: Multiple nontender, small erythematous papules throughout lower extremity. No presence of trace or pitting edema in lower extremities bilaterally, dorsalis pedis pulses +2 bilaterally Neuro: AAOx3, photophobia, nuchal rigidity, possible kernig sign Psych: Good judgement, thought and behavior Objective Labs 08/28/24 04:49 08/28/24 05:24 Labs: Laboratory Results - last 24 hr 08/26/24 08/27/24 08/27/24 19:40 04:55 14:05 WBC 5.8 RBC 5.21 Hgb 12.9 L Hct 38.8 L MCV 75 L MCH 24.8 L MCHC 33.2 RDW Std Deviation 36.8 Plt Count 164 Neut % (Auto) 52 Lymph % (Auto) 31 [place] % (Auto) 14 H Eos % (Auto) 2 Baso % (Auto) 1 Neut # (Auto) 3.0 Lymph # (Auto) 1.8 [place] # (Auto) 0.8 Eos # (Auto) 0.1 Baso # (Auto) 0.0 Immature Gran # (Auto) 0.02 H Absolute Nucleated RBC 0.00 Immature Gran % 0 Nucleated RBC % 0 Sodium 140 Potassium 3.5 D Chloride 105 Carbon Dioxide 25.8 Anion Gap 9 BUN 9 Creatinine 0.8 Estim Creat Clear Calc 99.7 eGFR > 60 BUN/Creatinine Ratio 11 L Glucose 111 H Calculated Osmolality 279 Calcium 8.4 Corrected Calcium 8.9 Phosphorus 2.9 Magnesium 1.2 L Total Bilirubin 0.5 AST 19 ALT 17 Alkaline Phosphatase 45 L Total Protein 5.9 Albumin 3.4 L D Globulin 2.5 Albumin/Globulin Ratio 1.4 CSF Appearance Clear CSF Color Colorless CSF WBC 7 CSF RBC 1000 CSF Cell Count Tube # Tube # 4 CSF Mononuclear WBCs 86 CSF Polynuclear WBCs 14 CSF Glucose 70 CSF Total Protein 67 H Vancomycin Trough 8.9 Coccidioides IgM Ab Positive A Quality Measures Quality Measures sepsis Current suspected stage: ruled out Possible source: pulmonary Blood cultures ordered: yes Antibiotic ordered: Yes Assessment & Plan Assessment Current Active Medications: Generic Name Dose Route Start Last Admin Trade Name Freq PRN Reason Stop Dose Admin Acetaminophen 650 mg 08/26/24 10:29 08/26/24 23:57 Acetaminophen 325 Mg Tablet PO 09/25/24 10:28 650 mg Q6HR PRN Administration FEVER >101 Hydrocodone Bitart/Acetaminophen 1 tab 08/26/24 18:17 Hydrocodone/Apap 5/325 Tablet PO 08/31/24 18:16 Q6HR PRN Pain 4-7 Benzonatate 100 mg 08/26/24 18:13 Benzonatate 100 Mg Capsule PO 09/25/24 18:12 Q8HR PRN COUGH Protocol Dextrose 25 ml 08/26/24 02:43 Dextrose 50%-Water Inj 50 Ml Syringe IV 09/25/24 02:42 Q15MIN PRN BG 50-70 responsive npo pt Dextrose 50 ml 08/26/24 02:43 Dextrose 50%-Water Inj 50 Ml Syringe IV 09/25/24 02:42 Q15MIN PRN BG <50 OR BG <70 & pt unresponsive Docusate Sodium 100 mg 08/26/24 13:30 08/27/24 08:19 Docusate Sod 100 Mg Capsule PO 09/25/24 13:29 100 mg QDAY LUZ ELENA Administration Protocol Enoxaparin Sodium 40 mg 08/26/24 09:00 08/27/24 08:19 Enoxaparin Sod Inj 40 Mg/0.4 Ml Syringe SC 09/09/24 08:59 40 mg QDAY LUZ ELENA Administration Fluconazole 400 mg 08/26/24 21:00 08/27/24 08:18 Fluconazole 100 Mg Tablet PO 09/02/24 20:59 400 mg BID LUZ ELENA Administration Glucagon 1 mg 08/26/24 02:43 Glucagon Inj 1 Mg Vial IM Q15MIN PRN BG <70, and no IV access Ceftriaxone Sodium 2 gm/ 50 mls @ 100 mls/hr 08/26/24 21:00 08/27/24 08:49 Sodium Chloride IV 09/02/24 20:59 Infused BID LUZ ELENA Infusion Acyclovir Sodium 650 mg/ 113 mls @ 99.902 mls/hr 08/26/24 14:00 08/27/24 13:01 Sodium Chloride IV 09/02/24 13:59 99.9 mls/hr Q8HR LUZ ELENA Administration Ampicillin Sodium 2,000 mg/ 100 mls @ 200 mls/hr 08/26/24 17:00 08/27/24 13:31 Sodium Chloride IV 09/02/24 16:59 Infused Q4H LUZ ELENA Infusion Insulin Glargine 30 unit 08/26/24 09:00 08/27/24 08:19 Insulin Glargine (Lantus) 5 Unit/0.05 Ml (Per 5 Units) SC 09/25/24 08:59 30 unit QDAY LUZ ELENA Administration Insulin Human Lispro 0 unit 08/26/24 07:30 08/27/24 11:04 Insulin Lispro (Admelog) 1 Unit/0.01 Ml Unit SC 09/25/24 07:29 Not Given AC [facility] Protocol Ketorolac Tromethamine 15 mg 08/26/24 18:00 08/27/24 11:00 Ketorolac Inj 30 Mg/Ml Vial IVP 08/31/24 17:59 15 mg Q6HR LUZ ELENA Administration Protocol Losartan Potassium 25 mg 08/26/24 09:00 08/27/24 08:18 Losartan Potassium 25 Mg Tablet PO 09/25/24 08:59 25 mg QDAY LUZ ELENA Administration Morphine Sulfate 2 mg 08/26/24 18:17 Morphine Sulf Inj 10 Mg/Ml Vial IVP 08/31/24 18:16 Q4HR PRN pain 7-10 or breakthrough Ondansetron HCl 4 mg 08/26/24 02:39 Ondansetron Inj 2 Mg/Ml Inj 2 Ml IVP 09/25/24 02:38 Q6H PRN NAUSEA OR VOMITING Protocol Pharmacy Consult 1 each 08/26/24 13:15 Vancomycin Pharmacy To Dose 1 Each Each IV 09/25/24 13:14 QDAY PRN CONSULT Sennosides 1 tab 08/26/24 02:39 Senna Tablet PO 09/25/24 02:38 QDAY PRN constipation Protocol Plan Assessment Susana Cobian is 44 yr male with PMH of insulin-dependent diabetes mellitus, hypertension, hyperlipidemia, sarcoidosis diagnosed with biopsy, and recent valley fever diagnosis on 05-01-2024 who is currently admitted for intractable headache and CAP. #Meningitis, suspected viral versus cocci #Intractable headache #Persistent fevers Presented with meningitis like symptoms including nuchal rigidity, fever 103, photophobia. No history of immunocompromise or STEROID use in the last [address] negative for acute pathology, although showed mild chronic ethmoid sinusitis. He has a history of coccidiomycosis, treated in the past. Cocci IgM positive on this admission. We are covering preemptively for meningitis. Lumbar puncture showed high protein, suggestive of viral versus cocci titers. Neurology on board. Pending final cultures. Continued on ACYCLOVIR, DIFLUCAN, VANCOMYCIN, CEFTRIAXONE, AMPICILLIN. Headaches improving, however still having fever spikes and complains of nuchal rigidity and light sensitivity. 24H blood culture showed no growth. Continue with current management, pending CSF culture. ? Continue ACYCLOVIR IV 650 mg q.8h. ? Continue DIFLUCAN 400 mg BID ? Continue CEFTRIAXONE 2 g IV BID ? Continue AMPICILLIN 2000 mg q.4h. ? Continue VANCOMYCIN pharmacy dose ? EKG showed no QTc prolongation ? Pain control, multimodal ? Pending CSF and blood culture ? Pending ID recommendations #CAP #History of valley fever #Positive cocci IgM #History of sarcoidosis Chest x-ray showed left lower lung pneumonia. Having fever, SOB, cough, body aches for few days. No sick contacts. Labs stable. Has been previously treated for cocci. However, cocci IgM was positive during this admission. CURB 65--0. Outpatient tx okay. PSI--43 points. Class I risk (minimal) Plan: ? Rocephin as above ? MRSA screen ? Sputum culture ? Antitussives ? Diflucan as above #Insulin dependent type 2 diabetes, well controlled Uses 30 units of Lantus at home every morning Plan: ? Sliding scale insulin ? Hypoglycemic protocol in place ? Blood sugar checks with meals ? Lantus 30 units every morning #HTN #HLD Plan: ? Resume home losartan 25 mg #Health Maintenance Disposition: MedSurg DVT prophylaxis: Lovenox GI prophylaxis:None indicated at this time Diet: Carb Consistent Low CODE STATUS: Full Case was discussed with attending physician. Kirs Fatima DO PGY II This document was transcribed using voice recognition technology. Minor inaccuracies may be present. Attending Provider Attestation/Addendum I have examined the patient, reviewed labs and imaging findings, discussed the case with the resident(s), and reviewed entered orders. I agree with the plan of care as outlined in this note, with these additional summaries/recommendations: Patient seen at bedside. No acute overnight events. Patient reports some improvement in his symptoms today. He reports improvement in neck stiffness, headache, and photophobia. Patient was started on meningitis treatment yesterday. He underwent lumbar puncture with neurology and findings are suspicious for cocci meningitis/viral meningitis. Less likely bacterial although we will continue isolation precautions and treatment until culture results are available. Further CSF studies pending. Patient also receiving acyclovir and high-dose fluconazole. Patient has history of valley fever and completed 3 months of fluconazole. He has noted to be spiking recurrent fevers. Continue Tylenol as needed. Continue high-dose fluconazole. Interestingly patient's IgM returned positive, IgG pending, and new titers pending as well. Patient was also noted to have left lower lobe infiltrate with possible superimposed bacterial pneumonia. We will continue IV antibiotics. Bilateral lower extremity rash noted possibly indicating disseminated cocci. We will follow-up new titers when available and obtain infectious disease consult. Patient has history of pulmonary sarcoidosis status post lung biopsy. Sarcoidosis seems stable and we will defer antibiotics in the setting of valley fever and infection. Continue insulin sliding scale for diabetes mellitus type 2 with Accu-Cheks. Target blood sugar of 140-180 while hospitalized. Diabetic diet. Patient updated on the plan and in agreement. All questions answered to satisfaction. Please see residents note for additional details and management. Dr. Avis MD
--- NOTE | 2024-08-27 15:19 | PC.SS ---
Rounding note: Pending CSF and blood culture, and ID recommendations.
[2024-08-27] MEDS: VANCOMYCIN/WATER 1250 MG IVPB 250 ML 120 MG IV ×2 (15:30→21:08)
[2024-08-27] MEDS: INSULIN LISPRO (AdmeLOG) 1 UNIT/0.01 ML UNIT SC (17:27)
[2024-08-27] MEDS: ACETAMINOPHEN 325 MG TABLET 650 MG PO (17:34)
--- NOTE | 2024-08-27 19:00 | PC.NURSE ---
report given to Sang APONTE
--- NOTE | 2024-08-27 19:40 | ESPR_ITS ---
Documentation for date of: 08/27/24 Subjective Subjective Interval history: Patient evaluated at bedside, reports fevers, chills, generalized myalgia. Denies weakness. Reports tingling in b/l fingers and toes. Spiking fever with Tmax 103.2 today. Exam Vital Signs Temp Pulse Resp BP Pulse Ox O2 Del Method 98.7 F 88 18 160/89 H 98 Room Air 08/27/24 18:34 08/27/24 16:00 08/27/24 16:00 08/27/24 16:00 08/27/24 16:00 08/27/24 16:00 Narrative Exam General: No acute distress, well nourished Eye: PERRL, EOMI, normal conjunctiva, no scleral icterus HENT: Normocephalic, atraumatic, hearing intact to conversation at normal volume, moist oral mucosa Neck: Supple, non-tender, no JVD, no lymphadenopathy Lungs: Non-labored respirations, symmetric chest rise Heart: Peripheral pulses intact bilaterally Abdomen: Soft, non-tender, non-distended Musculoskeletal: Normal range of motion and strength Skin: Skin is warm, dry, no rashes or lesions. Psychiatric: Cooperative, appropriate mood and affect Neurologic: Mental status: Orientation: Oriented to person, place, time, and situation Communication: Patient is cooperative and can follow simple instructions Language: Speech fluent, normal rate and volume, comprehension intact Cranial nerves: CN II: Visual sher intact CN III: Pupils equal, round, and reactive to light CN III, IV, : No gaze deviation, no nystagmus Horizontal pursuit: intact Vertical pursuit: intact Ptosis: none CN V: Facial sensation to light touch intact bilaterally at the forehead, cheeks, and jaw line CN VII: Face symmetric, no facial droop appreciated CN VIII: Able to hear and respond to conversation at normal volume, intact to finger rub CN IX, X: Palate elevation symmetric, uvula midline CN XI: Head turn and shoulder shrug strong, symmetric bilaterally CN XII: Normal tongue protrusion without deviation, no fasciculations Motor: Normal bulk and tone No atrophy No abnormal movements or fasciculations Muscle strength: Shoulder abduction: R 5/5 L 5/5 Elbow flexion: R 5/5 L 5/5 Elbow extension: R 5/5 L 5/5 Hip flexion: R 5/5 L 5/5 Hip extension: R 5/5 L 5/5 Knee flexion: R 5/5 L 5/5 Knee extension: R 5/5 L 5/5 Sensory: RUE: Light touch intact LUE: Light touch intact RLE: Light touch intact LLE: Light touch intact Reflexes: Biceps (C5-6): R 2+ L 2+ Brachioradialis (C5-6): R 2+ L 2+ Triceps (C7-8): R 2+ L 2+ Patellae (L3-4): R 2+ L 2+ Achilles (S1-2):R 2+ L 2+ Objective Labs 08/28/24 04:49 08/28/24 05:24 Labs: Laboratory Results - last 24 hr 08/26/24 08/27/24 08/27/24 19:40 04:55 14:05 WBC 5.8 RBC 5.21 Hgb 12.9 L Hct 38.8 L MCV 75 L MCH 24.8 L MCHC 33.2 RDW Std Deviation 36.8 Plt Count 164 Neut % (Auto) 52 Lymph % (Auto) 31 [place] % (Auto) 14 H Eos % (Auto) 2 Baso % (Auto) 1 Neut # (Auto) 3.0 Lymph # (Auto) 1.8 [place] # (Auto) 0.8 Eos # (Auto) 0.1 Baso # (Auto) 0.0 Immature Gran # (Auto) 0.02 H Absolute Nucleated RBC 0.00 Immature Gran % 0 Nucleated RBC % 0 Sodium 140 Potassium 3.5 D Chloride 105 Carbon Dioxide 25.8 Anion Gap 9 BUN 9 Creatinine 0.8 Estim Creat Clear Calc 99.7 eGFR > 60 BUN/Creatinine Ratio 11 L Glucose 111 H Calculated Osmolality 279 Calcium 8.4 Corrected Calcium 8.9 Phosphorus 2.9 Magnesium 1.2 L Total Bilirubin 0.5 AST 19 ALT 17 Alkaline Phosphatase 45 L Total Protein 5.9 Albumin 3.4 L D Globulin 2.5 Albumin/Globulin Ratio 1.4 CSF Appearance Clear CSF Color Colorless CSF WBC 7 CSF RBC 1000 CSF Cell Count Tube # Tube # 4 CSF Mononuclear WBCs 86 CSF Polynuclear WBCs 14 CSF Glucose 70 CSF Total Protein 67 H Vancomycin Trough 8.9 Coccidioides IgM Ab Positive A Quality Measures Quality Measures sepsis Current suspected stage: sepsis Possible source: pulmonary Blood cultures ordered: yes Antibiotic ordered: Yes Assessment & Plan Assessment Current Active Medications: Generic Name Dose Route Start Last Admin Trade Name Freq PRN Reason Stop Dose Admin Acetaminophen 650 mg 08/26/24 10:29 08/27/24 17:34 Acetaminophen 325 Mg Tablet PO 09/25/24 10:28 650 mg Q6HR PRN Administration FEVER >101 Hydrocodone Bitart/Acetaminophen 1 tab 08/26/24 18:17 Hydrocodone/Apap 5/325 Tablet PO 08/31/24 18:16 Q6HR PRN Pain 4-7 Benzonatate 100 mg 08/26/24 18:13 Benzonatate 100 Mg Capsule PO 09/25/24 18:12 Q8HR PRN COUGH Protocol Dextrose 25 ml 08/26/24 02:43 Dextrose 50%-Water Inj 50 Ml Syringe IV 09/25/24 02:42 Q15MIN PRN BG 50-70 responsive npo pt Dextrose 50 ml 08/26/24 02:43 Dextrose 50%-Water Inj 50 Ml Syringe IV 09/25/24 02:42 Q15MIN PRN BG <50 OR BG <70 & pt unresponsive Docusate Sodium 100 mg 08/26/24 13:30 08/27/24 08:19 Docusate Sod 100 Mg Capsule PO 09/25/24 13:29 100 mg QDAY LUZ ELENA Administration Protocol Enoxaparin Sodium 40 mg 08/26/24 09:00 08/27/24 08:19 Enoxaparin Sod Inj 40 Mg/0.4 Ml Syringe SC 09/09/24 08:59 40 mg QDAY LUZ ELENA Administration Fluconazole 400 mg 08/26/24 21:00 08/27/24 08:18 Fluconazole 100 Mg Tablet PO 09/02/24 20:59 400 mg BID LUZ ELENA Administration Glucagon 1 mg 08/26/24 02:43 Glucagon Inj 1 Mg Vial IM Q15MIN PRN BG <70, and no IV access Ceftriaxone Sodium 2 gm/ 50 mls @ 100 mls/hr 08/26/24 21:00 08/27/24 08:49 Sodium Chloride IV 09/02/24 20:59 Infused BID LUZ ELENA Infusion Acyclovir Sodium 650 mg/ 113 mls @ 99.902 mls/hr 08/26/24 14:00 08/27/24 14:09 Sodium Chloride IV 09/02/24 13:59 Infused Q8HR LUZ ELENA Infusion Ampicillin Sodium 2,000 mg/ 100 mls @ 200 mls/hr 08/26/24 17:00 08/27/24 17:46 Sodium Chloride IV 09/02/24 16:59 Infused Q4H LUZ ELENA Infusion Vancomycin HCl 250 mls @ 120 mls/hr 08/27/24 14:45 08/27/24 17:35 Vancomycin/Water 1250 Mg Ivpb IV 09/03/24 14:44 Infused Q8HR LUZ ELENA Infusion Insulin Glargine 30 unit 08/26/24 09:00 08/27/24 08:19 Insulin Glargine (Lantus) 5 Unit/0.05 Ml (Per 5 Units) SC 09/25/24 08:59 30 unit QDAY LUZ ELENA Administration Insulin Human Lispro 0 unit 08/26/24 07:30 08/27/24 17:27 Insulin Lispro (Admelog) 1 Unit/0.01 Ml Unit SC 09/25/24 07:29 2 unit AC LUZ ELENA Administration Protocol Ketorolac Tromethamine 15 mg 08/26/24 18:00 08/27/24 17:16 Ketorolac Inj 30 Mg/Ml Vial IVP 08/31/24 17:59 15 mg Q6HR LUZ ELENA Administration Protocol Losartan Potassium 25 mg 08/26/24 09:00 08/27/24 08:18 Losartan Potassium 25 Mg Tablet PO 09/25/24 08:59 25 mg QDAY LUZ ELENA Administration Morphine Sulfate 2 mg 08/27/24 15:06 Morphine Sulf Inj 10 Mg/Ml Vial IVP 08/31/24 18:16 Q4HR PRN pain 8-10 or breakthrough Ondansetron HCl 4 mg 08/26/24 02:39 Ondansetron Inj 2 Mg/Ml Inj 2 Ml IVP 09/25/24 02:38 Q6H PRN NAUSEA OR VOMITING Protocol Pharmacy Consult 1 each 08/26/24 13:15 Vancomycin Pharmacy To Dose 1 Each Each IV 09/25/24 13:14 QDAY PRN CONSULT Sennosides 1 tab 08/26/24 02:39 Senna Tablet PO 09/25/24 02:38 QDAY PRN constipation Protocol Plan #Meningitis, suspected viral versus cocci #Intractable headache #Persistent fevers Presented with meningitis like symptoms including nuchal rigidity, fever 103, photophobia. No history of immunocompromise or STEROID use in the last 6 months. He has a history of coccidiomycosis, treated in the past. Cocci IgM positive on this admission. CSF: clear, WBC 7, RBC 1000, mono 86, poly 14, glucose 70, protein high 67 c/w cocci vs viral. Gram stain negative. EKG sinus tachycardia 106QTc 421 CT head without contrast showed mild chronic ethmoid sinusitis, negative for acute pathology Plan: - Abx management per primary team - Ceftriaxone 2 g IV BID, Ampicillin 2000 mg q4h, Vancomycin - Continue acyclovir - Continue Fluconazole 400 mg BID, monitor LFTs - Pending CSF culture #CAP #History coccidiomycosis #Positive cocci IgM #History of sarcoidosis Chest x-ray showed left lower lung consolidation c/w pneumonia. + fever, SOB, cough, body aches for few days. Has been previously treated for cocci Plan: - Management per primary team #Insulin dependent type 2 diabetes, well controlled Uses 30 units of Lantus at home every morning Plan: - Management per primary team # Hypertension # Hyperlipidemia Plan: ? Management per primary team Plan discussed with Dr. Fili Guzman, PGY1 Attending Provider Attestation/Addendum I independently reviewed the patient's record and agree with resident's findings, assessment and plan of care. Patient is afebrile currently, tolerating antibiotics well without side effects. CSF analysis showing elevated protein and lymphocytes predominant, suggesting viral/fungal/cocci. Follow-up with Gram stain and culture and then discontinue Rocephin, ampicillin and vancomycin if it comes back negative. Continue with Diflucan 400 mg twice daily
[2024-08-28] VITALS (10 sets, daily range): BP systolic 125–170; BP diastolic 76–91; PULSE 65–84; RESP 13–24; TEMP 36–37.6; O2SAT 98; BMI 24.2
[2024-08-28] MEDS: Ampicillin Inj 2,000 MG in SODIUM CHLORIDE 0.9% (POP) 100 ML 200 MG IV ×3 (00:09→08:41)
[2024-08-28] MEDS: VANCOMYCIN/WATER 1250 MG IVPB 250 ML 120 MG IV (05:00)
[2024-08-28] MEDS: ACYCLOVIR INJ 650 MG in SODIUM CHLORIDE 0.9% 100 ML 99.9 MG IV (05:00)
[2024-08-28 05:44] LABS: Basophils # (Auto) 0.1 Thou/mm3 (0.0-0.2); Basophils % (Auto) 1 % (0-2.5); Eosinophils # (Auto) 0.5 Thou/mm3 (0.0-0.5); Eosinophils % (Auto) 10 % (0-10); Hematocrit 39.4 % (41.0-53.0); Hemoglobin 13.6 g/dL (13.5-16.0); Immature Granulocytes Auto 0.05 Thou/mm3 (0.00-0.00); Lymphocytes # (Auto) 2.1 Thou/mm3 (1.0-4.8); Lymphocytes % (Auto) 42 % (10-50); Mean Corpuscular HGB Conc 34.5 g/dl (31.0-37.0); Mean Corpuscular Hemoglobin 24.5 pg (25.0-35.0); Mean Corpuscular Volume 71 fL (80-100); Monocytes # (Auto) 0.7 Thou/mm3 (0.0-0.8); Monocytes % (Auto) 14 % (0-12); Neutrophils # (Auto) 1.6 Thou/mm3 (1.8-7.7); Neutrophils % (Auto) 32 % (37-80); Nucleated Red Blood Cell # 0.00 Thou/mm3 (0.00-0.00); Nucleated Red Blood Cell % 0 /100 WBC (0); Platelet Count 195 Thou/mm3 (140-440); RDW Standard Deviation 35.1 fL (35.1-43.9); Red Blood Count 5.55 Miln/mm3 (4.50-5.90); White Blood Count 5.1 Thou/mm3 (3.8-10.6)
[2024-08-28 06:05] LABS: Alanine Aminotransferase 27 U/L (10-49); Albumin, Serum 3.7 gm/dL (3.5-5.0); Albumin/Globulin Ratio 1.4 (1.2-2.2); Alkaline Phosphatase 50 U/L (46-116); Anion Gap 10 (7-16); Aspartate Amino Transferase 22 U/L (0-34); BUN/Creatinine Ratio 9 Ratio (12-20); Bilirubin,Total 0.5 mg/dL (0.3-1.2); Blood Urea Nitrogen 6 mg/dL (9-23); Calcium 8.7 mg/dL (8.3-10.6); Calcium (Corrected) 8.9 mg/dL (8.5-10.1); Carbon Dioxide 26.0 mMol/L (20.0-31.0); Chloride 105 mMol/L (98-107); Creatinine (Component) 0.7 mg/dL (0.6-1.3); Estimated Creatinine Clearance 113.9 mL/min (>60); Globulin 2.6 gm/dL (2.3-3.5); Glucose 99 mg/dL (74-106); Magnesium 1.4 mg/dL (1.6-2.6); Osmolality,Calculated 278 (275-295); Phosphorous 2.4 mg/dL (2.4-5.1); Potassium 3.6 mMol/L (3.4-5.1); Sodium 141 mMol/L (136-145); Total Protein 6.3 gm/dL (5.7-8.2); eGFR > 60 See Note
[2024-08-28] MEDS: ACETAMINOPHEN 325 MG TABLET 650 MG PO (07:10)
[2024-08-28] MEDS: LOSARTAN POTASSIUM 25 MG TABLET PO (08:38)
[2024-08-28] MEDS: FLUCONAZOLE 100 MG TABLET 400 MG PO ×2 (08:38→20:00)
[2024-08-28] MEDS: INSULIN GLARGINE (Lantus) 5 UNIT/0.05 ML (PER 5 UNITS) 30 UNIT SC (08:39)
[2024-08-28] MEDS: ENOXAPARIN SOD INJ 40 MG/0.4 ML SYRINGE SC (08:40)
[2024-08-28] MEDS: cefTRIAXone 2 GM in SODIUM CHLORIDE 0.9% (Popper) 50 ML IV (08:41)
[2024-08-28] MEDS: Magnesium Sulfate 4 GM Ivpb 4 GM/50 ML BAG IV (08:42)
[2024-08-28 13:24] LABS: Vancomycin,Trough 16.2 mcg/mL (5.0-10.0)
--- NOTE | 2024-08-28 13:35 | ESPR_ITS ---
Documentation for date of: 08/28/24 Subjective Subjective Interval history: Patient seen at bedside accompanied by and children. Patient reports resolution of myalgias, chills, or subjective fever. He reports that he feels greatly improved from yesterday and is ready for discharge. Exam Vital Signs Temp Pulse Resp BP Pulse Ox O2 Del Method 98.5 F 84 13 125/76 98 Room Air 08/28/24 12:00 08/28/24 12:00 08/28/24 12:00 08/28/24 08:38 08/28/24 08:00 08/28/24 08:00 Narrative Exam General: No acute distress, well nourished Eye: PERRL, EOMI, normal conjunctiva, no scleral icterus HENT: Normocephalic, atraumatic, hearing intact to conversation at normal volume, moist oral mucosa Neck: Supple, non-tender, no JVD, no lymphadenopathy Lungs: Non-labored respirations, symmetric chest rise Heart: Peripheral pulses intact bilaterally Abdomen: Soft, non-tender, non-distended Musculoskeletal: Normal range of motion and strength Skin: Skin is warm, dry, no rashes or lesions. Psychiatric: Cooperative, appropriate mood and affect Neurologic: Mental status: Orientation: Oriented to person, place, time, and situation Communication: Patient is cooperative and can follow simple instructions Language: Speech fluent, normal rate and volume, comprehension intact Cranial nerves: CN II: Visual sher intact CN III: Pupils equal, round, and reactive to light CN III, IV, : No gaze deviation, no nystagmus Horizontal pursuit: intact Vertical pursuit: intact Ptosis: none CN V: Facial sensation to light touch intact bilaterally at the forehead, cheeks, and jaw line CN VII: Face symmetric, no facial droop appreciated CN VIII: Able to hear and respond to conversation at normal volume, intact to finger rub CN IX, X: Palate elevation symmetric, uvula midline CN XI: Head turn and shoulder shrug strong, symmetric bilaterally CN XII: Normal tongue protrusion without deviation, no fasciculations Motor: Normal bulk and tone No atrophy No abnormal movements or fasciculations Muscle strength: Shoulder abduction: R 5/5 L 5/5 Elbow flexion: R 5/5 L 5/5 Elbow extension: R 5/5 L 5/5 Hip flexion: R 5/5 L 5/5 Hip extension: R 5/5 L 5/5 Knee flexion: R 5/5 L 5/5 Knee extension: R 5/5 L 5/5 Sensory: RUE: Light touch intact LUE: Light touch intact RLE: Light touch intact LLE: Light touch intact Reflexes: Biceps (C5-6): R 2+ L 2+ Brachioradialis (C5-6): R 2+ L 2+ Triceps (C7-8): R 2+ L 2+ Patellae (L3-4): R 2+ L 2+ Achilles (S1-2):R 2+ L 2+ Objective Labs 08/29/24 05:20 08/29/24 05:20 Labs: Laboratory Results - last 24 hr 08/27/24 08/28/24 08/28/24 14:05 04:49 05:24 WBC 5.1 RBC 5.55 Hgb 13.6 Hct 39.4 L MCV 71 L MCH 24.5 L MCHC 34.5 RDW Std Deviation 35.1 Plt Count 195 D Neut % (Auto) 32 L Lymph % (Auto) 42 [place] % (Auto) 14 H Eos % (Auto) 10 Baso % (Auto) 1 Neut # (Auto) 1.6 L Lymph # (Auto) 2.1 [place] # (Auto) 0.7 Eos # (Auto) 0.5 Baso # (Auto) 0.1 Immature Gran # (Auto) 0.05 H Absolute Nucleated RBC 0.00 Immature Gran % 1 H Nucleated RBC % 0 Sodium 141 Potassium 3.6 Chloride 105 Carbon Dioxide 26.0 Anion Gap 10 BUN 6 L Creatinine 0.7 Estim Creat Clear Calc 113.9 eGFR > 60 BUN/Creatinine Ratio 9 L Glucose 99 Calculated Osmolality 278 Calcium 8.7 Corrected Calcium 8.9 Phosphorus 2.4 Magnesium 1.4 L Total Bilirubin 0.5 AST 22 ALT 27 Alkaline Phosphatase 50 Total Protein 6.3 Albumin 3.7 Globulin 2.6 Albumin/Globulin Ratio 1.4 Vancomycin Trough 8.9 08/28/24 12:36 WBC RBC Hgb Hct MCV MCH MCHC RDW Std Deviation Plt Count Neut % (Auto) Lymph % (Auto) [place] % (Auto) Eos % (Auto) Baso % (Auto) Neut # (Auto) Lymph # (Auto) [place] # (Auto) Eos # (Auto) Baso # (Auto) Immature Gran # (Auto) Absolute Nucleated RBC Immature Gran % Nucleated RBC % Sodium Potassium Chloride Carbon Dioxide Anion Gap BUN Creatinine Estim Creat Clear Calc eGFR BUN/Creatinine Ratio Glucose Calculated Osmolality Calcium Corrected Calcium Phosphorus Magnesium Total Bilirubin AST ALT Alkaline Phosphatase Total Protein Albumin Globulin Albumin/Globulin Ratio Vancomycin Trough 16.2 H Quality Measures Quality Measures sepsis Current suspected stage: ruled out Possible source: pulmonary Blood cultures ordered: yes Antibiotic ordered: No Assessment & Plan Assessment Current Active Medications: Generic Name Dose Route Start Last Admin Trade Name Freq PRN Reason Stop Dose Admin Acetaminophen 650 mg 08/26/24 10:29 08/28/24 07:10 Acetaminophen 325 Mg Tablet PO 09/25/24 10:28 650 mg Q6HR PRN Administration FEVER >101 Hydrocodone Bitart/Acetaminophen 1 tab 08/26/24 18:17 Hydrocodone/Apap 5/325 Tablet PO 08/31/24 18:16 Q6HR PRN Pain 4-7 Benzonatate 100 mg 08/26/24 18:13 Benzonatate 100 Mg Capsule PO 09/25/24 18:12 Q8HR PRN COUGH Protocol Dextrose 25 ml 08/26/24 02:43 Dextrose 50%-Water Inj 50 Ml Syringe IV 09/25/24 02:42 Q15MIN PRN BG 50-70 responsive npo pt Dextrose 50 ml 08/26/24 02:43 Dextrose 50%-Water Inj 50 Ml Syringe IV 09/25/24 02:42 Q15MIN PRN BG <50 OR BG <70 & pt unresponsive Docusate Sodium 100 mg 08/26/24 13:30 08/28/24 08:40 Docusate Sod 100 Mg Capsule PO 09/25/24 13:29 Not Given QDAY [facility] Protocol Enoxaparin Sodium 40 mg 08/26/24 09:00 08/28/24 08:40 Enoxaparin Sod Inj 40 Mg/0.4 Ml Syringe SC 09/09/24 08:59 40 mg QDAY LUZ ELENA Administration Fluconazole 400 mg 08/26/24 21:00 08/28/24 08:38 Fluconazole 100 Mg Tablet PO 09/02/24 20:59 400 mg BID LUZ ELENA Administration Glucagon 1 mg 08/26/24 02:43 Glucagon Inj 1 Mg Vial IM Q15MIN PRN BG <70, and no IV access Insulin Glargine 30 unit 08/26/24 09:00 08/28/24 08:39 Insulin Glargine (Lantus) 5 Unit/0.05 Ml (Per 5 Units) SC 09/25/24 08:59 30 unit QDAY LUZ ELENA Administration Insulin Human Lispro 0 unit 08/26/24 07:30 08/28/24 11:38 Insulin Lispro (Admelog) 1 Unit/0.01 Ml Unit SC 09/25/24 07:29 Not Given AC LUZ ELENA Protocol Ketorolac Tromethamine 15 mg 08/28/24 09:34 Ketorolac Inj 30 Mg/Ml Vial IVP 08/31/24 17:59 Q6HR PRN Pain 1-3 Or Fever > 101 Protocol Losartan Potassium 25 mg 08/26/24 09:00 08/28/24 08:38 Losartan Potassium 25 Mg Tablet PO 09/25/24 08:59 25 mg QDAY LUZ ELENA Administration Morphine Sulfate 2 mg 08/27/24 15:06 Morphine Sulf Inj 10 Mg/Ml Vial IVP 08/31/24 18:16 Q4HR PRN pain 8-10 or breakthrough Ondansetron HCl 4 mg 08/26/24 02:39 Ondansetron Inj 2 Mg/Ml Inj 2 Ml IVP 09/25/24 02:38 Q6H PRN NAUSEA OR VOMITING Protocol Sennosides 1 tab 08/26/24 02:39 Senna Tablet PO 09/25/24 02:38 QDAY PRN constipation Protocol Plan #Meningitis, suspected viral versus cocci #Intractable headache #Persistent fevers Presented with meningitis like symptoms including nuchal rigidity, fever 103, photophobia. No history of immunocompromise or STEROID use in the last 6 months. He has a history of coccidiomycosis, treated in the past. Cocci IgM positive on this admission. CSF: clear, WBC 7, RBC 1000, mono 86, poly 14, glucose 70, protein high 67 c/w fungal/cocci vs viral. Gram stain negative. EKG sinus tachycardia 106QTc 421 CT head without contrast showed mild chronic ethmoid sinusitis, negative for acute pathology Plan: - Can d/c Ceftriaxone, Vancomycin, and Ampicillin as there is very low suspicion for bacterial meningitis - Pending CSF culture - Continue Fluconazole 400 mg BID, monitor LFTs - Patient cleared for d/c from neurological standpoint #CAP #History coccidiomycosis #Positive cocci IgM #History of sarcoidosis, stable Chest x-ray showed left lower lung consolidation c/w pneumonia. + fever, SOB, cough, body aches for few days. 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 Management per primary team Plan discussed with Dr. Fili Guzman, PGY1 Attending Provider Attestation/Addendum I personally have seen and examined the patient at the bedside and I agreed with the resident's findings, assessment and plan of care. Stable for discharge on Diflucan alone 400 mg twice a day with close monitoring of his liver function. Discontinue all antibiotics including acyclovir.
--- NOTE | 2024-08-28 13:36 | PC.SS ---
[employer] OPERATOR conducted bedside contact with the patient conduct initial assessment and to discuss discharge planning.? Patient confirmed demographic information.? Patient resides at home with spouse, Josh Cobian .? Patient is currently employed.? Patient does not utilize any form of DME to assist with ambulation.? Patient does not utilize home oxygen.? Patient describes the ability to complete ADL?s independently.? Patient identified spouse, Josh Cobian; as medical surrogate decision maker.? Patient utilizes [facility] for PCP services.? Patient utilizes [facility] for medication services.? Patient possesses history of diabetes, insulin dependent.? Plan is for the patient to return home at the time of discharge.? Family will provide transportation on behalf of the patient. ?Patient will require follow up appointment at [facility] upon discharge.? No further discharge needs identified by the patient.? No further intervention required at this time, social sciences instructor will be available to address any further concerns.? Next of Kin: Josh Cobian D/C Plan: Home
--- NOTE | 2024-08-28 16:42 | ESPR_ITS ---
Documentation for date of: 08/28/24 Subjective Subjective Interval history: Patient examined at bedside today. No acute overnight events. Patient reports that his headache and fevers are improving. Denies improvement in photophobia. He has been having bowel movements. He is wondering when to go home. He has no other complaints at this time. Exam Vital Signs Temp Pulse Resp BP Pulse Ox O2 Del Method 98.5 F 81 13 125/76 98 Room Air 08/28/24 12:00 08/28/24 12:00 08/28/24 12:00 08/28/24 08:38 08/28/24 08:00 08/28/24 08:00 Narrative Exam General: AAOx3, middle aged male, in mild distress HEENT: Moist mucous membranes, conjunctiva clear, EOMI, PERRLA, minimal neck stiffness w/ flexion Cardiovascular: S1, S2, radial pulses +2 bilat, RRR Pulmonary: CTAB bilat no cough, no wheezing GI: No tenderness to light or deep palpitation, no guarding, rigidity, rebound tenderness or distension Extremities: No presence of trace or pitting edema in lower extremities bilaterally, dorsalis pedis pulses +2 bilaterally Neuro: AAOx3, minimal nuchal rigidity, no focal or local neurological deficits Psych: Good judgement, thought and behavior Objective Labs 08/29/24 05:20 08/29/24 05:20 Labs: Laboratory Results - last 24 hr 08/28/24 08/28/24 08/28/24 04:49 05:24 12:36 WBC 5.1 RBC 5.55 Hgb 13.6 Hct 39.4 L MCV 71 L MCH 24.5 L MCHC 34.5 RDW Std Deviation 35.1 Plt Count 195 D Neut % (Auto) 32 L Lymph % (Auto) 42 [place] % (Auto) 14 H Eos % (Auto) 10 Baso % (Auto) 1 Neut # (Auto) 1.6 L Lymph # (Auto) 2.1 [place] # (Auto) 0.7 Eos # (Auto) 0.5 Baso # (Auto) 0.1 Immature Gran # (Auto) 0.05 H Absolute Nucleated RBC 0.00 Immature Gran % 1 H Nucleated RBC % 0 Sodium 141 Potassium 3.6 Chloride 105 Carbon Dioxide 26.0 Anion Gap 10 BUN 6 L Creatinine 0.7 Estim Creat Clear Calc 113.9 eGFR > 60 BUN/Creatinine Ratio 9 L Glucose 99 Calculated Osmolality 278 Calcium 8.7 Corrected Calcium 8.9 Phosphorus 2.4 Magnesium 1.4 L Total Bilirubin 0.5 AST 22 ALT 27 Alkaline Phosphatase 50 Total Protein 6.3 Albumin 3.7 Globulin 2.6 Albumin/Globulin Ratio 1.4 Vancomycin Trough 16.2 H Quality Measures Quality Measures sepsis Current suspected stage: sepsis Possible source: pulmonary Blood cultures ordered: yes Antibiotic ordered: Yes Assessment & Plan Assessment Current Active Medications: Generic Name Dose Route Start Last Admin Trade Name Freq PRN Reason Stop Dose Admin Acetaminophen 650 mg 08/26/24 10:29 08/28/24 07:10 Acetaminophen 325 Mg Tablet PO 09/25/24 10:28 650 mg Q6HR PRN Administration FEVER >101 Hydrocodone Bitart/Acetaminophen 1 tab 08/26/24 18:17 Hydrocodone/Apap 5/325 Tablet PO 08/31/24 18:16 Q6HR PRN Pain 4-7 Benzonatate 100 mg 08/26/24 18:13 Benzonatate 100 Mg Capsule PO 09/25/24 18:12 Q8HR PRN COUGH Protocol Dextrose 25 ml 08/26/24 02:43 Dextrose 50%-Water Inj 50 Ml Syringe IV 09/25/24 02:42 Q15MIN PRN BG 50-70 responsive npo pt Dextrose 50 ml 08/26/24 02:43 Dextrose 50%-Water Inj 50 Ml Syringe IV 09/25/24 02:42 Q15MIN PRN BG <50 OR BG <70 & pt unresponsive Docusate Sodium 100 mg 08/26/24 13:30 08/28/24 08:40 Docusate Sod 100 Mg Capsule PO 09/25/24 13:29 Not Given QDAY [facility] Protocol Enoxaparin Sodium 40 mg 08/26/24 09:00 08/28/24 08:40 Enoxaparin Sod Inj 40 Mg/0.4 Ml Syringe SC 09/09/24 08:59 40 mg QDAY LUZ ELENA Administration Fluconazole 400 mg 08/26/24 21:00 08/28/24 08:38 Fluconazole 100 Mg Tablet PO 09/02/24 20:59 400 mg BID LUZ ELENA Administration Glucagon 1 mg 08/26/24 02:43 Glucagon Inj 1 Mg Vial IM Q15MIN PRN BG <70, and no IV access Insulin Glargine 30 unit 08/26/24 09:00 08/28/24 08:39 Insulin Glargine (Lantus) 5 Unit/0.05 Ml (Per 5 Units) SC 09/25/24 08:59 30 unit QDAY LUZ ELENA Administration Insulin Human Lispro 0 unit 08/26/24 07:30 08/28/24 11:38 Insulin Lispro (Admelog) 1 Unit/0.01 Ml Unit SC 09/25/24 07:29 Not Given AC LUZ ELENA Protocol Ketorolac Tromethamine 15 mg 08/28/24 09:34 Ketorolac Inj 30 Mg/Ml Vial IVP 08/31/24 17:59 Q6HR PRN Pain 1-3 Or Fever > 101 Protocol Losartan Potassium 25 mg 08/26/24 09:00 08/28/24 08:38 Losartan Potassium 25 Mg Tablet PO 09/25/24 08:59 25 mg QDAY LUZ ELENA Administration Morphine Sulfate 2 mg 08/27/24 15:06 Morphine Sulf Inj 10 Mg/Ml Vial IVP 08/31/24 18:16 Q4HR PRN pain 8-10 or breakthrough Ondansetron HCl 4 mg 08/26/24 02:39 Ondansetron Inj 2 Mg/Ml Inj 2 Ml IVP 09/25/24 02:38 Q6H PRN NAUSEA OR VOMITING Protocol Sennosides 1 tab 08/26/24 02:39 Senna Tablet PO 09/25/24 02:38 QDAY PRN constipation Protocol Plan Assessment Susana Cobian is 44 yr male with PMH of insulin-dependent diabetes mellitus, hypertension, hyperlipidemia, sarcoidosis diagnosed with biopsy, and recent valley fever diagnosis on 05-01-2024 who is currently admitted for intractable headache and CAP. #Cocci Meningitis Lumbar puncture Gram stain negative for organisms and white blood cells Can de-escalate antibiotics as we are focusing on cocci as the source of the meningitis Head CT unremarkable Blood cultures no growth after 48 hours We currently do not have infectious disease as attending is on vacation Patient may need to be on Diflucan indefinitely Plan: ? Neurology consulted, appreciate recs ? Follow-up lumbar puncture results including CSF culture ? Antipyretics including IV Tylenol and Toradol 15 mg IV every 6 hours PRN ? Multimodal pain management ? Continue Diflucan for 400 mg twice daily #CAP #History of valley fever #History of sarcoidosis #MRSA nares positive Chest x-ray showed left lower lung pneumonia. Having fever, SOB, cough, body aches for few days. No sick contacts. Labs stable. CURB 65--0. Outpatient tx okay. PSI--43 points. Class I risk (minimal) Plan: ? Mupirocin topically TID ? Follow-up sputum culture ? Antitussives ? Diflucan as above ? Will d/c abx at this time #Insulin dependent type 2 diabetes, well controlled Uses 30 units of Lantus at home every morning Plan: ? Sliding scale insulin ? Hypoglycemic protocol in place ? Blood sugar checks with meals ? Lantus 30 units every morning #HTN #HLD Plan: ? Continue home losartan 25 mg #Health Maintenance Disposition: Telemetry DVT prophylaxis: Lovenox GI prophylaxis: None indicated at this time Diet: Carb Consistent Low CODE STATUS: Full Patient seen and care discussed with my attending physician, Dr. Avis Varela, PGY-2 Attending Provider Attestation/Addendum I have examined the patient, reviewed labs and imaging findings, discussed the case with the resident(s), and reviewed entered orders. I agree with the plan of care as outlined in this note, with these additional summaries/recommendations: Patient seen at bedside. No acute overnight events. Today patient reports significant improvement in headache, neck stiffness, and weakness. We will discontinue IV antibiotics for bacterial meningitis today as Gram stain did not reveal any organisms. 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 Further CSF studies pending. Patient receiving high-dose fluconazole. Patient has history of valley fever and completed 3 months of fluconazole. He has noted to be spiking recurrent fevers. Continue Tylenol as needed. Continue high-dose fluconazole. Interestingly patient's IgM returned positive, IgG pending, and new titers pending as well. Consult infectious disease, recommendations appreciated. Patient was also noted to have left lower lobe infiltrate with possible superimposed bacterial pneumonia. We will continue IV antibiotics. Bilateral lower extremity rash noted possibly indicating disseminated cocci. We will follow-up new titers when available and obtain infectious disease consult. Patient has history of pulmonary sarcoidosis status post lung biopsy in the past. Sarcoidosis seems stable and we will defer steroids in the setting of valley fever and infection. Continue insulin sliding scale for diabetes mellitus type 2 with Accu-Cheks. Target blood sugar of 140-180 while hospitalized. Diabetic diet. Patient updated on the plan and in agreement. All questions answered to satisfaction. Please see residents note for additional details and management. Dr. Avis MD
[2024-08-28] MEDS: MUPIROCIN OINT 2% 15 GM TUBE TOP (21:32)
[2024-08-29] VITALS: BP 147/87; PULSE 60; PULSE 64; RESP 18; TEMP 36.6; O2SAT 96
[2024-08-29 04:00] VITALS: BP 126/82; PULSE 68; PULSE 75; RESP 22; TEMP 36.4; O2SAT 96
[2024-08-29] MEDS: MUPIROCIN OINT 2% 15 GM TUBE TOP (05:31)
[2024-08-29 06:18] LABS: Alanine Aminotransferase 34 U/L (10-49); Albumin, Serum 3.9 gm/dL (3.5-5.0); Albumin/Globulin Ratio 1.5 (1.2-2.2); Alkaline Phosphatase 53 U/L (46-116); Anion Gap 7 (7-16); Aspartate Amino Transferase 23 U/L (0-34); BUN/Creatinine Ratio 11 Ratio (12-20); Bilirubin,Total 0.4 mg/dL (0.3-1.2); Blood Urea Nitrogen 8 mg/dL (9-23); Calcium 9.1 mg/dL (8.3-10.6); Calcium (Corrected) 9.2 mg/dL (8.5-10.1); Carbon Dioxide 25.6 mMol/L (20.0-31.0); Chloride 107 mMol/L (98-107); Creatinine (Component) 0.7 mg/dL (0.6-1.3); Estimated Creatinine Clearance 113.9 mL/min (>60); Globulin 2.6 gm/dL (2.3-3.5); Glucose 96 mg/dL (74-106); Magnesium 1.6 mg/dL (1.6-2.6); Osmolality,Calculated 277 (275-295); Phosphorous 3.6 mg/dL (2.4-5.1); Potassium 4.1 mMol/L (3.4-5.1); Sodium 140 mMol/L (136-145); Total Protein 6.5 gm/dL (5.7-8.2); eGFR > 60 See Note
[2024-08-29 06:29] LABS: Basophils # (Auto) 0.0 Thou/mm3 (0.0-0.2); Basophils % (Auto) 1 % (0-2.5); Eosinophils # (Auto) 0.7 Thou/mm3 (0.0-0.5); Eosinophils % (Auto) 14 % (0-10); Hematocrit 39.9 % (41.0-53.0); Hemoglobin 13.6 g/dL (13.5-16.0); Immature Granulocytes Auto 0.00 Thou/mm3 (0.00-0.00); Lymphocytes # (Auto) 2.4 Thou/mm3 (1.0-4.8); Lymphocytes % (Auto) 51 % (10-50); Mean Corpuscular HGB Conc 34.1 g/dl (31.0-37.0); Mean Corpuscular Hemoglobin 24.6 pg (25.0-35.0); Mean Corpuscular Volume 72 fL (80-100); Monocytes # (Auto) 0.5 Thou/mm3 (0.0-0.8); Monocytes % (Auto) 11 % (0-12); Neutrophils # (Auto) 1.1 Thou/mm3 (1.8-7.7); Neutrophils % (Auto) 23 % (37-80); Nucleated Red Blood Cell # 0.00 Thou/mm3 (0.00-0.00); Nucleated Red Blood Cell % 0 /100 WBC (0); Platelet Count 243 Thou/mm3 (140-440); RDW Standard Deviation 35.9 fL (35.1-43.9); Red Blood Count 5.52 Miln/mm3 (4.50-5.90); White Blood Count 4.6 Thou/mm3 (3.8-10.6)
[2024-08-29 08:00] VITALS: BP 124/83; PULSE 72; PULSE 74; RESP 18; TEMP 36.2; O2SAT 99
[2024-08-29 09:06] VITALS: BP 124/83; PULSE 72
[2024-08-29] MEDS: FLUCONAZOLE 100 MG TABLET 400 MG PO (09:06)
[2024-08-29] MEDS: DOCUSATE SOD 100 MG CAPSULE PO (09:06)
[2024-08-29] MEDS: LOSARTAN POTASSIUM 25 MG TABLET PO (09:06)
[2024-08-29] MEDS: INSULIN GLARGINE (Lantus) 5 UNIT/0.05 ML (PER 5 UNITS) 30 UNIT SC (09:06)
--- NOTE | 2024-08-29 09:49 | PC.SS ---
Patient to d/c home today. No further d/c needs.
[2024-08-29 11:30] LABS: HIV (1&2) Antibody Rapid Non-Reactive
[2024-08-29 12:00] VITALS: BP 117/90; PULSE 60; PULSE 75; RESP 18; TEMP 36.3; O2SAT 99
--- NOTE | 2024-08-29 13:22 | PD.RESPRO ---
Documentation for date of: 08/29/24 Exam Vital Signs Temp Pulse Resp BP Pulse Ox O2 Del Method 97.2 F 75 18 124/83 99 Room Air 08/29/24 08:00 08/29/24 12:00 08/29/24 08:00 08/29/24 09:06 08/29/24 08:00 08/29/24 08:00 Narrative Exam General: No acute distress, well nourished Eye: PERRL, EOMI, normal conjunctiva, no scleral icterus HENT: Normocephalic, atraumatic, hearing intact to conversation at normal volume, moist oral mucosa Neck: Supple, non-tender, no JVD, no lymphadenopathy Lungs: Non-labored respirations, symmetric chest rise Heart: Peripheral pulses intact bilaterally Abdomen: Soft, non-tender, non-distended Musculoskeletal: Normal range of motion and strength Skin: Skin is warm, dry, no rashes or lesions. Psychiatric: Cooperative, appropriate mood and affect Neurologic: Mental status: Orientation: Oriented to person, place, time, and situation Communication: Patient is cooperative and can follow simple instructions Language: Speech fluent, normal rate and volume, comprehension intact Cranial nerves: CN II: Visual sher intact CN III: Pupils equal, round, and reactive to light CN III, IV, : No gaze deviation, no nystagmus Horizontal pursuit: intact Vertical pursuit: intact Ptosis: none CN V: Facial sensation to light touch intact bilaterally at the forehead, cheeks, and jaw line CN VII: Face symmetric, no facial droop appreciated CN VIII: Able to hear and respond to conversation at normal volume, intact to finger rub CN IX, X: Palate elevation symmetric, uvula midline CN XI: Head turn and shoulder shrug strong, symmetric bilaterally CN XII: Normal tongue protrusion without deviation, no fasciculations Motor: Normal bulk and tone No atrophy No abnormal movements or fasciculations Muscle strength: Shoulder abduction: R 5/5 L 5/5 Elbow flexion: R 5/5 L 5/5 Elbow extension: R 5/5 L 5/5 Hip flexion: R 5/5 L 5/5 Hip extension: R 5/5 L 5/5 Knee flexion: R 5/5 L 5/5 Knee extension: R 5/5 L 5/5 Sensory: RUE: Light touch intact LUE: Light touch intact RLE: Light touch intact LLE: Light touch intact Reflexes: Biceps (C5-6): R 2+ L 2+ Brachioradialis (C5-6): R 2+ L 2+ Triceps (C7-8): R 2+ L 2+ Patellae (L3-4): R 2+ L 2+ Achilles (S1-2):R 2+ L 2+ Objective Labs 08/29/24 05:20 08/29/24 05:20 Labs: Laboratory Results - last 24 hr 08/26/24 08/28/24 08/29/24 19:40 12:36 05:20 WBC 4.6 RBC 5.52 Hgb 13.6 Hct 39.9 L MCV 72 L MCH 24.6 L MCHC 34.1 RDW Std Deviation 35.9 Plt Count 243 D Neut % (Auto) 23 L Lymph % (Auto) 51 H [place] % (Auto) 11 Eos % (Auto) 14 H Baso % (Auto) 1 Neut # (Auto) 1.1 L Lymph # (Auto) 2.4 [place] # (Auto) 0.5 Eos # (Auto) 0.7 H Baso # (Auto) 0.0 Immature Gran # (Auto) 0.00 Absolute Nucleated RBC 0.00 Immature Gran % 0 Nucleated RBC % 0 Sodium 140 Potassium 4.1 D Chloride 107 Carbon Dioxide 25.6 Anion Gap 7 BUN 8 L Creatinine 0.7 Estim Creat Clear Calc 113.9 eGFR > 60 BUN/Creatinine Ratio 11 L Glucose 96 Calculated Osmolality 277 Calcium 9.1 Corrected Calcium 9.2 Phosphorus 3.6 Magnesium 1.6 Total Bilirubin 0.4 AST 23 ALT 34 Alkaline Phosphatase 53 Total Protein 6.5 Albumin 3.9 Globulin 2.6 Albumin/Globulin Ratio 1.5 Vancomycin Trough 16.2 H HIV 1&2 Antibody Rapid Non-Reactive Misc Test Result Cancelled Quality Measures Quality Measures sepsis Possible source: pulmonary Blood cultures ordered: yes Assessment & Plan Assessment Current Active Medications: Generic Name Dose Route Start Last Admin Trade Name Freq PRN Reason Stop Dose Admin Acetaminophen 650 mg 08/26/24 10:29 08/28/24 07:10 Acetaminophen 325 Mg Tablet PO 09/25/24 10:28 650 mg Q6HR PRN Administration FEVER >101 Hydrocodone Bitart/Acetaminophen 1 tab 08/26/24 18:17 Hydrocodone/Apap 5/325 Tablet PO 08/31/24 18:16 Q6HR PRN Pain 4-7 Benzonatate 100 mg 08/26/24 18:13 Benzonatate 100 Mg Capsule PO 09/25/24 18:12 Q8HR PRN COUGH Protocol Dextrose 25 ml 08/26/24 02:43 Dextrose 50%-Water Inj 50 Ml Syringe IV 09/25/24 02:42 Q15MIN PRN BG 50-70 responsive npo pt Dextrose 50 ml 08/26/24 02:43 Dextrose 50%-Water Inj 50 Ml Syringe IV 09/25/24 02:42 Q15MIN PRN BG <50 OR BG <70 & pt unresponsive Docusate Sodium 100 mg 08/26/24 13:30 08/29/24 09:06 Docusate Sod 100 Mg Capsule PO 09/25/24 13:29 100 mg QDAY LUZ ELENA Administration Protocol Enoxaparin Sodium 40 mg 08/26/24 09:00 08/29/24 09:06 Enoxaparin Sod Inj 40 Mg/0.4 Ml Syringe SC 09/09/24 08:59 Not Given QDAY LUZ ELENA Fluconazole 400 mg 08/26/24 21:00 08/29/24 09:06 Fluconazole 100 Mg Tablet PO 09/02/24 20:59 400 mg BID LUZ ELENA Administration Glucagon 1 mg 08/26/24 02:43 Glucagon Inj 1 Mg Vial IM Q15MIN PRN BG <70, and no IV access Insulin Glargine 30 unit 08/26/24 09:00 08/29/24 09:06 Insulin Glargine (Lantus) 5 Unit/0.05 Ml (Per 5 Units) SC 09/25/24 08:59 30 unit QDAY LUZ ELENA Administration Insulin Human Lispro 0 unit 08/26/24 07:30 08/29/24 11:37 Insulin Lispro (Admelog) 1 Unit/0.01 Ml Unit SC 09/25/24 07:29 Not Given AC LUZ ELENA Protocol Ketorolac Tromethamine 15 mg 08/28/24 09:34 Ketorolac Inj 30 Mg/Ml Vial IVP 08/31/24 17:59 Q6HR PRN Pain 1-3 Or Fever > 101 Protocol Losartan Potassium 25 mg 08/26/24 09:00 08/29/24 09:06 Losartan Potassium 25 Mg Tablet PO 09/25/24 08:59 25 mg QDAY LUZ ELENA Administration Morphine Sulfate 2 mg 08/29/24 08:09 Morphine Sulf Inj 10 Mg/Ml Vial IVP 08/31/24 18:16 Q4HR PRN pain 8-10 or breakthrough Mupirocin 0 gm 08/28/24 22:00 08/29/24 05:31 Mupirocin Oint 2% 15 Gm Tube TOP 09/04/24 21:59 1 gm TID LUZ ELENA Administration Ondansetron HCl 4 mg 08/26/24 02:39 Ondansetron Inj 2 Mg/Ml Inj 2 Ml IVP 09/25/24 02:38 Q6H PRN NAUSEA OR VOMITING Protocol Sennosides 1 tab 08/26/24 02:39 Senna Tablet PO 09/25/24 02:38 QDAY PRN constipation Protocol Plan #Meningitis, suspected viral versus cocci #Intractable headache #Persistent fevers Presented with meningitis like symptoms including nuchal rigidity, fever 103, photophobia. No history of immunocompromise or STEROID use in the last 6 months. He has a history of coccidiomycosis, treated in the past. Cocci IgM positive on this admission. HIV negative CSF: clear, WBC 7, RBC 1000, mono 86, poly 14, glucose 70, protein high 67 c/w fungal/cocci vs viral. Gram stain negative. CSF culture negative. EKG sinus tachycardia 106QTc 421 CT head without contrast showed mild chronic ethmoid sinusitis, negative for acute pathology Plan: - Can d/c Ceftriaxone, Vancomycin, Ampicillin, and Acyclovir - Continue Fluconazole 400 mg BID, monitor LFTs - Patient cleared for d/c from neurological standpoint #CAP #History coccidiomycosis #Positive cocci IgM #History of sarcoidosis, stable Chest x-ray showed left lower lung consolidation c/w pneumonia. + fever, SOB, cough, body aches for few days. 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 Management per primary team Plan discussed with Dr. Fili Guzman, PGY1
--- NOTE | 2024-08-29 13:26 | ESDS_ITS ---
<Statement entered by Yakelin Chun DO - 08/29/24 15:03> I, Yakelin Chun DO, attest that I was physically present for the joe portions of the service and evaluated the patient with the resident and I reviewed and discussed the case with the resident and agree with the resident's findings and plans of care as documented above Planned Discharge Date 08/29/24 DS: Providers Provider Date of admission: 08/27/24 12:31 Primary care physician: Trevor Varela MD Admitting Provider: Gaurav Adkins DO Attending Provider on Admission: Vishal Albarran MD Consults: 08/26/24 13:15 Consult to Neurology / Tele-Neurology Routine Comment: Consulting Provider: John Penn 08/27/24 11:08 Consult to Infectious Diseases Routine Comment: meningitis, viral? Consulting Provider: Zak Ayala Attending Provider on DC: Yakelin Chun DO Discharging Provider: Yakelin Chun DO DS: Diagnosis Problem List Completed Was Problem List Reviewed/Reconciled?: Yes Hospital Course Hospital Course Hospital course: Susana is 44 yr male with PMHx of insulin-dependent diabetes mellitus, hypertension, hyperlipidemia, sarcoidosis diagnosed with biopsy, and recent valley fever diagnosis who was admitted to [facility] on 08/26/2024 for meningitis, either cocci or viral etiology. Pt had arrived to the ED with a stable blood pressure, HR 112, temperature 103.1 saturating well on room air. He was worked up and was found to have a Hemoglobin 13.9, MCV 72, sodium 135, bicarb 18.4 glucose 111, normal lactic acid, normal Pro-Jered UA negative for UTI. Chest x- ray showed left lower lung pneumonia. Patient was given 1 g ceftriaxone and azithromycin while in the ED. While seen in the ED, he was admitted for management of pneumonia. When seen in the morning, there was concern for meningitis as pt had nuchal rigidity, persistent fevers, headache and photophobia. Pt was then put on airborne precautions, neurology was consulted and pt was managed with schedule antipyretics (Toradol IV). Neurology had recommended to be treated broadly for meningitis including Acylovir, Ampicillin, Vancomycin, Rocephin and Diflucan. Pt was previously taking Diflucan for cocci pneumonia and recently stopped a week before admission. Pt had LP done which showed normal glucose and high protein, however gram stain and CSF culture were negative. Pt continued to improve and everything but Diflucan was discontinued per neuro recommendations. Pt continued to improve and was medically cleared from neuro for discharge. Considering his hx of sacroidosis, if his skin lesions are because of sacroidosis, rather than cocci, then assisted duration of cocci can be altered. Pt to receieve Punch biopsy on follow up visit with me. Pt was then discharged with the following instructions. Discharge Instructions: Follow up with your PCP within one week Follow up with your neurologist, Dr. Penn, within one to two weeks Take your new medicine, Diflucan, as prescribed. You will need to take this indefinitely for now. Continue taking your medicines as prescribed Use Tylenol for headaches and fevers, do not exceed 4 grams within a 24 hour period Return to ED if your symptoms worsen or return # Suspected cocci meningitis #CAP #History of valley fever #History of sarcoidosis #MRSA nares positive #Insulin dependent type 2 diabetes, well controlled #HTN #HLD Discharge summary was reviewed with my attending Dr. Lay Varela, PGY-2 Time Spent with Patient Time attestation: Total time spent providing and/or coordinating discharge services: Time spent: Greater than 30 minutes Exam Vital Signs Temp Pulse Resp BP Pulse Ox O2 Del Method 97.2 F 75 18 124/83 99 Room Air 08/29/24 08:00 08/29/24 12:00 08/29/24 08:00 08/29/24 09:06 08/29/24 08:00 08/29/24 08:00 Narrative Exam General: AAOx3, middle aged male, NAD HEENT: Moist mucous membranes, conjunctiva clear, EOMI, PERRLA, Cardiovascular: S1, S2, radial pulses +2 bilat, RRR Pulmonary: CTAB bilat no cough, no wheezing GI: No tenderness to light or deep palpitation, no guarding, rigidity, rebound tenderness or distension Extremities: No presence of trace or pitting edema in lower extremities bilaterally, dorsalis pedis pulses +2 bilaterally, numerous cutaneous lesions in UE and LE Neuro: AAOx3, no focal or local neurological deficits Psych: Good judgement, thought and behavior Discharge Plan Plan Patient Disposition: HOME (Self Care) Patient condition on transfer: Stable Care Plan Goals: Discharge Instructions: Follow up with your PCP within one week Follow up with your neurologist, Dr. Penn, within one to two weeks Take your new medicine, Diflucan, as prescribed. You will need to take this indefinitely Continue taking your medicines as prescribed Use Tylenol for headaches and fevers, do not exceed 4 grams within a 24 hour period Return to ED if your symptoms worsen or return Prescriptions/Referrals Prescriptions/Med Rec: New fluconazole [Diflucan] 100 mg tablet 400 mg PO BID 30 Days Qty: 240 12RF Rx Instructions: Take four tablets by mouth twice a day acetaminophen [Pain Relief (acetaminophen)] 325 mg tablet 325 mg PO QID MDD 4 grams in one day PRN (Reason: fever or pain) 30 Days Qty: 90 2RF Rx Instructions: Take one tablet by mouth as needed Continued insulin aspart U-100 [Novolog FlexPen U-100 Insulin] 100 unit/mL (3 mL) insulin pen 12 unit subcut TID Qty: 15 5RF Rx Instructions: Take as directed three times a day insulin glargine [Lantus Solostar U-100 Insulin] 100 unit/mL (3 mL) insulin pen 30 unit subcut QPM 30 Days Qty: 15 5RF Rx Instructions: Take as directed Jardiance 10 mg tablet 10 mg PO QAM Qty: 30 2RF metformin 1,000 mg tablet 1,000 mg PO BID Qty: 60 3RF Januvia 25 mg tablet 25 mg PO QDAY Qty: 30 3RF triamcinolone acetonide 0.5 % cream 1 applic topical BID 30 Days Qty: 15 4RF Rx Instructions: apply on affected areas 2 times per day (DME) Dexcom G7 Sensor Device See Rx Instructions .Route Qty: 1 4RF Rx Instructions: As directed losartan 25 mg tablet 25 mg PO QDAY Qty: 30 3RF ibuprofen 600 mg tablet 600 mg PO Q8H PRN (Reason: pain) Qty: 20 0RF Referrals: Trevor Varela MD [Primary Care Provider] - Patient/Caregiver Discharge Instructions Discharge Activity: activity as tolerated Education Materials: Meningitis, Understanding Coccidioidomycosis Print Language: Zambian Stand Alone Forms: Malena Award Info., Patient Portal Info Letter Discharge Order Discharge Orders: Discharge (Routine); Ordered 07/15/25 Ordered By: Kris Fatima Quality Discharge Quality Measures VTE prophylaxis (Lovenox )
[2024-08-29 13:45] VITALS: BP 132/94; PULSE 79; RESP 18; TEMP 36; O2SAT 95
[2024-09-01 13:52] LABS: HSV-1 DNA, CSF NOT DETECTED copies/mL; HSV-1 DNA, CSF Source CEREBROSPINAL FLUID
[2024-09-04 08:05] LABS: HSV-2 DNA, CSF NOT DETECTED copies/mL
[2024-09-04 08:12] LABS: Angiotensin Convert Enz, CSF* <5 U/L (< OR = 15); Myelin Basic Protein, CSF* <2.0 mcg/L (< OR = 4.0); VDRL, CSF Qual* NON-REACTIVE
[2024-09-07 17:49] LABS: Albumin, CSF 22.1 mg/dL (8.0-42.0); IgG Index, CSF 0.54 (<0.70); IgG, CSF 3.7 mg/dL (0.8-7.7); IgG, Serum 1110 mg/dL (600-1640); Synthesis Rate IgG, CSF -1.0 mg/24 h (-9.9 TO +3.3)
[2024-09-08 06:25] LABS: Albumin, Serum 3.5 g/dL (3.6-5.1)
[2024-09-11 06:51] LABS: Oligoclonal Bands, CSF* ABSENT (ABSENT)
== END 2024-08-29 13:55 | disposition home or self-care (01) | DRG 50 ==
LOC: SERX 08-26 01:49 → SERHOLD 08-26 03:23 → S3NX 08-26 03:34 → S2SX 08-28 06:00 → S2NX 08-28 14:02
PROVIDERS: Physician Assistant; Psychiatry & Neurology Neurology; Admitting Provider Student in an Organized Health Care Education/Training Program; Emergency Provider Emergency Medicine; Visit Provider Student in an Organized Health Care Education/Training Program
DX: G03.9 Meningitis, unspecified (principal); J18.9 Pneumonia, unspecified organism; E11.59 Type 2 diabetes mellitus with other circulatory complications; Z79.4 Long term (current) use of insulin; I15.2 Hypertension secondary to endocrine disorders; E78.5 Hyperlipidemia, unspecified; D86.9 Sarcoidosis, unspecified; E87.20 Acidosis, unspecified; J32.2 Chronic ethmoidal sinusitis; K59.00 Constipation, unspecified; Z78.9 Other specified health status; Z79.52 Long term (current) use of systemic steroids; Z79.84 Long term (current) use of oral hypoglycemic drugs; Z79.899 Other long term (current) drug therapy; Z86.61 Personal history of infections of the central nervous system
CPT/HCPCS: 36415; 70450; 71046; 80053; 80202; 81001; 82040; 82042; 82164; 82784; 82945; 83036; 83605; 83690; 83735; 83873; 83916; 84100; 84145; 84157; 85025; 86171; 86592; 86635; 86703; 87040; 87070; 87081; 87205; 87400; 87530; 87811; 89051; 93005; 93225; 96361; 96365; 96366; 96375; 99284; G0378; J0131; J0133; J0290; J0456; J0696; J1650; J1815; J1885; J2405; J3372; J3373; J3475; J3480; J7030; J7050; J7120; A9270

== ENCOUNTER 2024-09-04 13:38 | Outpatient (AMB) | payer MEDICAID, SELFPAY ==
[2024-09-04 14:45] VITALS: BP 112/74; PULSE 82; RESP 18; TEMP 36.8; O2SAT 98
--- NOTE | 2024-09-04 14:45 | PD.RESCLINIC ---
Vital Signs 09/04/24 14:45 Weight 63.673 kg Weight Measurement Method Standing Scale BP 112/74 Blood Pressure Source Automatic Cuff Blood Pressure Location Right Upper Arm Position Sitting Respiration 18 Pulse 82 Pulse Source Monitor Temp 98.2 F Temp Source Temporal Artery Scan Pulse Oximetry (%) 98 Oxygen Delivery Method Room Air Allergies/Meds Allergies & Medications Allergies No Known Allergies Allergy (Verified 09/04/24 14:47) Medication Reconciliation ibuprofen 600 mg tablet 600 mg PO Q8H PRN pain #20 tabs 02/29/24 [Rx Confirmed 09/04/24] empagliflozin 10 mg tablet (Jardiance) 10 mg PO QAM #30 tabs 06/19/24 [Rx Confirmed 09/04/24] metformin 1,000 mg tablet 1,000 mg PO BID #60 tabs 06/19/24 [Rx Confirmed 09/04/24] sitagliptin phosphate 25 mg tablet (Januvia) 25 mg PO QDAY #30 tabs 06/19/24 [Rx Confirmed 09/04/24] triamcinolone acetonide 0.5 % topical cream 1 applic topical BID 1 month #15 grams 06/19/24 [Rx Confirmed 09/04/24] insulin aspart U-100 100 unit/mL (3 mL) subcutaneous pen (Novolog FlexPen U-100 Insulin aspart) 12 unit (0.12 mL) subcut TID #15 mL 06/22/24 [Rx Confirmed 09/04/24] insulin glargine 100 unit/mL (3 mL) subcutaneous pen (Lantus Solostar U-100 Insulin) 30 unit (0.3 mL) subcut QPM 1 month #15 mL 06/22/24 [Rx Confirmed 09/04/24] losartan 25 mg tablet 25 mg PO QDAY #30 tabs 07/27/24 [Rx Confirmed 09/04/24] acetaminophen 325 mg tablet (Pain Relief (acetaminophen)) 325 mg PO QID PRN fever or pain 1 month #90 tabs 08/29/24 [Rx Confirmed 09/04/24] fluconazole 100 mg tablet (Diflucan) 400 mg (4 x 100 mg) PO BID 1 month #240 tabs 08/29/24 [Rx Confirmed 09/04/24] blood-glucose sensor ([employer] G7 Sensor device) #1 ea 09/04/24 [Rx] MA Intake Visit Data Collection New Patient or Established: Established Patient (seen at [facility] within 3 years) Seen by Clinical Staff ONLY (RN/MA): No Pain Present Currently: No Pain scale:: 0 Pain Scale Used: Hunt-Mason/Numerical Chain Pegger Required: No PCP or OBGYN visit in last 3 months: No Hx Now: No Do You Feel Safe at Home: Yes Authorities Contacted: N/A Smoking Status Smoking Status: Never smoker Immunization / Flu Flu Vaccine in the Last 12 Months: No Flu Vaccine Exclusion Criteria: No Exclusion Criteria Past Medical History Past Medical History NEUROLOGIC: Negative Neurological Disorders CARDIAC: Positive Hypertension; Negative Cardiac Disorders or Congestive Heart Failure RESPIRATORY: Negative Chronic Obstructive Pulmonary Disease (COPD) or Asthma GASTROINTESTINAL: Negative Gastrointestinal Disorders GENITOURINARY: Negative Genitourinary Disorders or Renal Disease ENDOCRINE: Positive Endocrine Disorders and Diabetes Mellitus Type 2; Negative Diabetes Mellitus Type 1 HEMATOLOGIC: Negative Blood Disorders or Sickle Cell Disease OTHER HISTORY: Positive Hospitalization; Negative Autoimmune Disease, Down Syndrome, Developmental Delay, Falls, Anesthesia Reactions, Human Immunodeficiency Virus (HIV), Chicken Pox, Measles, Clostridium Difficile or Cancer Family History FAMILY HISTORY: Negative Family Respiratory Disorders, Family Cardiac Disorders, Family Gastrointestinal Problems or Family Cancer Social History SMOKING STATUS: Smoking status: Never smoker SECOND HAND EXPOSURE: second hand exposure: No ALCOHOL: Alcohol Intake: Never HOUSING: Housing: House LIVES WITH: Lives With: Spouse Patient Portal Questionaires PHQ-9 PHQ-2 Over the last 2 weeks, how often have you been bothered by any of the following problems? 1. Little interest or pleasure in doing things: not at all PHQ-9 8. Moving or speaking so slowly that other people could have noticed? - Or the opposite - being so fidgety or restless that you have been moving around a lot more than usual: not at all Source: Developed by Drs. Matty Cruz, Monika Guadarrama, Chris Marley and colleagues, with an educational deonna from [employer]. Social History Living Situation History Housing: House Tobacco History Smoking Status: Never smoker Second Hand Smoke Exposure: No Alcohol History Alcohol Intake: Never Domestic Abuse History Do You Feel Safe at Home: Yes Review of Systems Report any current symptoms Only answer those that you have currently: Past Medical History Past Medical History Have you ever been diagnosed with any of the following: Cardiology Problems Congestive Heart Failure: No Hypertension: Yes Respiratory Problems Chronic Obstructive Pulmonary Disease (COPD): No Asthma: No Genital/Urinary Problems Renal Disease: No Endocrine Problems Diabetes Mellitus Type 1: No Diabetes Mellitus Type 2: Yes Blood Problems Sickle Cell Disease: No Other Problems Hospitalization: Yes Autoimmune Disease: No Down Syndrome: No Developmental Delay: No Falls: No Anesthesia Reactions: No Human Immunodeficiency Virus (HIV): No Chicken Pox: No Measles: No Clostridium Difficile: No Cancer: No History of Present Illness HPI Narrative Pt examined at bedside today. Pt reports having mild headaches since discharge, however it improves with tylenol. He is still agreeable for punch biopsy today. He has been taking his fluconazole as prescribed. No other complaints at this time. Review of Systems Review of Systems Narrative Review of Systems: Constitutional: No fever, chills, fatigue, weakness, weight loss HEENT: No eye pain, vision loss, ear pain, hearing loss, dysphagia, Cardiovascular: No chest pain, palpitations, edema, pain with walking Respiratory: No cough, shortness of breath, wheezing GI: No NVD, abdominal pain, constipation, blood in stool, loss of appetite, heartburn Extremities: No presence of pitting edema MSK: No back pain, joint pain, joint swelling Neuro: No dizziness, numbness, weakness, + headaches,no seizures, tremors Psych: No anxiety, depression Objective/Exam Narrative Physical exam: General: AAOx3, NAD, HEENT: Moist mucous membranes, conjunctiva clear, EOMI, PERRLA, Cardiovascular: S1, S2, radial pulses +2 bilat, RRR Pulmonary: CTAB bilat no cough, no wheezing GI: No tenderness to light or deep palpitation, no guarding, rigidity, rebound tenderness or distension Extremities: No presence of trace or pitting edema in lower extremities bilaterally, dorsalis pedis pulses +2 bilaterally, multiple flat cutaneous lesions in LE and UE that are not raised erythematous or scaling Neuro: AAOx3, no focal motor or sensory deficits in the UE or LE bilat Psych: Good judgement, thought and behavior Assessment & Plan Diagnosis / Problem List (1) Coccidioidomycosis, pulmonary: Status: Chronic Assessment & Plan: Pt may need to be on this tx indefinitely depending on if pt has dissemientated cocci Plan: Continue with Diflucan 400 mg BID Will perform CMP in one of following visits to monitor LFTs Follow up on punch biopsy results (2) Meningitis: Status: Acute Assessment & Plan: Could of been viral or cocci will need to perform punch biopsy to see if this is cocci that is dissemientated At this time CSF cultures are negative for cocci Plan: Follow up further CSF results Follow up punch biopsy results Will continue Diflucan 400 mg BID (3) Diabetes mellitus with insulin therapy: Status: Acute Assessment & Plan: with CGM and basal insulin Plan: Continue current insulin regimen Refill Dexacom (CGM) Orders: Orders Lidocaine 1% vial 20ml 09/04/24 G03.9 - Meningitis, unspecified Office Procedures [facility] Level of Care Nursing/Assessment Patient Status: Established Patient Nursing Assessment/Reassessment: Medication Reconciliation, Update PMH in EMR and Vital Signs Coordination of Care: Complex Care and Chronic Disease 1-5, Consent,records obtained, informed consent, Education Simp Pt/Fam and Staff clarify orders Established Patient Charge Established Patient Point Assignment: 85 Established Patient Point Charge: Level 3 (80-115) Skin Biopsy Office Procedure Procedure performed by: Trevor Varela Informed consent given: Yes Consent signed: Yes Time out checklist: patient, procedure, site marked/identified, positioning of patient, supplies available, allergies confirmed and team agrees on procedure Time out staff in room: Yes Time out verified: Yes Time out date: 09/04/24 Time out time: 14:30 Location: [facility] Type of Biopsy: punch Anesthesia: local Hemostasis: pressure Wound closure: other (Elizabeth) Patient tolerated procedure: well Complications: No
== END 2024-09-04 15:00 | disposition home or self-care (01) ==
LOC: HODAHC 13:38
PROVIDERS: Supervising Provider Internal Medicine
DX: G03.9 Meningitis, unspecified (principal); B38.1 Chronic pulmonary coccidioidomycosis; E11.9 Type 2 diabetes mellitus without complications; Z79.4 Long term (current) use of insulin
CPT/HCPCS: 99213; J3490; G0463

== ENCOUNTER 2024-09-18 14:00 | Outpatient (AMB) | payer MEDICAID, SELFPAY ==
[2024-09-18 14:21] VITALS: BP 128/82; PULSE 96; RESP 18; TEMP 36.8; O2SAT 97
--- NOTE | 2024-09-18 14:21 | PD.RESCLINIC ---
Vital Signs 09/18/24 14:21 Weight 64.467 kg Weight Measurement Method Standing Scale BP 128/82 Blood Pressure Source Automatic Cuff Blood Pressure Location Left Upper Arm Position Sitting Respiration 18 Pulse 96 Pulse Source Monitor Temp 98.2 F Temp Source Oral Pulse Oximetry (%) 97 Oxygen Delivery Method Room Air Allergies/Meds Allergies & Medications Allergies No Known Allergies Allergy (Verified 09/18/24 14:22) Medication Reconciliation ibuprofen 600 mg tablet 600 mg PO Q8H PRN pain #20 tabs 02/29/24 [Rx Confirmed 09/18/24] empagliflozin 10 mg tablet (Jardiance) 10 mg PO QAM #30 tabs 06/19/24 [Rx Confirmed 09/18/24] metformin 1,000 mg tablet 1,000 mg PO BID #60 tabs 06/19/24 [Rx Confirmed 09/18/24] sitagliptin phosphate 25 mg tablet (Januvia) 25 mg PO QDAY #30 tabs 06/19/24 [Rx Confirmed 09/18/24] triamcinolone acetonide 0.5 % topical cream 1 applic topical BID 1 month #15 grams 06/19/24 [Rx Confirmed 09/18/24] insulin aspart U-100 100 unit/mL (3 mL) subcutaneous pen (Novolog FlexPen U-100 Insulin aspart) 12 unit (0.12 mL) subcut TID #15 mL 06/22/24 [Rx Confirmed 09/18/24] insulin glargine 100 unit/mL (3 mL) subcutaneous pen (Lantus Solostar U-100 Insulin) 30 unit (0.3 mL) subcut QPM 1 month #15 mL 06/22/24 [Rx Confirmed 09/18/24] losartan 25 mg tablet 25 mg PO QDAY #30 tabs 07/27/24 [Rx Confirmed 09/18/24] acetaminophen 325 mg tablet (Pain Relief (acetaminophen)) 325 mg PO QID PRN fever or pain 1 month #90 tabs 08/29/24 [Rx Confirmed 09/18/24] fluconazole 100 mg tablet (Diflucan) 400 mg (4 x 100 mg) PO BID 1 month #240 tabs 08/29/24 [Rx Confirmed 09/18/24] blood-glucose sensor ([employer] G7 Sensor device) #1 ea 09/04/24 [Rx Confirmed 09/18/24] cetirizine 10 mg tablet (Zyrtec) 10 mg PO QDAY PRN allergy symptoms #30 tabs 09/18/24 [Rx] fluconazole 200 mg tablet 400 mg (2 x 200 mg) PO QDAY 1 month #60 tabs 09/18/24 [Rx] fluticasone propionate 50 mcg/actuation nasal spray,suspension (Flonase Allergy Relief) 1 spray intranasal BID PRN allergy symptoms 1 month #16 grams 09/18/24 [Rx] MA Intake Visit Data Collection New Patient or Established: Established Patient (seen at [facility] within 3 years) Seen by Clinical Staff ONLY (RN/MA): No Reason for Visit:: FOLLOW UP Pain Present Currently: No Pain scale:: 0 Pain Scale Used: Hunt-Mason/Numerical Bar Finish Operator Required: No PCP or OBGYN visit in last 3 months: Yes Date of Last PCP or OBGYN visit: 09/04/24 Hx Now: No Do You Feel Safe at Home: Yes Authorities Contacted: N/A Smoking Status Smoking Status: Never smoker Immunization / Flu Flu Vaccine in the Last 12 Months: No Flu Vaccine Exclusion Criteria: No Exclusion Criteria Past Medical History Past Medical History NEUROLOGIC: Negative Neurological Disorders CARDIAC: Positive Hypertension; Negative Cardiac Disorders or Congestive Heart Failure RESPIRATORY: Negative Chronic Obstructive Pulmonary Disease (COPD) or Asthma GASTROINTESTINAL: Negative Gastrointestinal Disorders GENITOURINARY: Negative Genitourinary Disorders or Renal Disease ENDOCRINE: Positive Endocrine Disorders and Diabetes Mellitus Type 2; Negative Diabetes Mellitus Type 1 HEMATOLOGIC: Negative Blood Disorders or Sickle Cell Disease OTHER HISTORY: Positive Hospitalization; Negative Autoimmune Disease, Down Syndrome, Developmental Delay, Falls, Anesthesia Reactions, Human Immunodeficiency Virus (HIV), Chicken Pox, Measles, Clostridium Difficile or Cancer Family History FAMILY HISTORY: Negative Family Respiratory Disorders, Family Cardiac Disorders, Family Gastrointestinal Problems or Family Cancer Social History SMOKING STATUS: Smoking status: Never smoker SECOND HAND EXPOSURE: second hand exposure: No ALCOHOL: Alcohol Intake: Never HOUSING: Housing: House LIVES WITH: Lives With: Spouse Patient Portal Questionaires PHQ-9 PHQ-2 Over the last 2 weeks, how often have you been bothered by any of the following problems? 1. Little interest or pleasure in doing things: not at all 2. Feeling down, depressed, or hopeless: not at all Total score: 0 PHQ-9 3. Trouble falling or staying asleep, or sleeping too much: Not at all 4. Feeling tired or having little energy: Not at all 5. Poor appetite or overeating: Not at all 6. Feeling bad about yourself - or that you are a failure or have let yourself or your family down: Not at all 7. Trouble concentrating on things, such as reading the newspaper or watching television: Not at all 8. Moving or speaking so slowly that other people could have noticed? - Or the opposite - being so fidgety or restless that you have been moving around a lot more than usual: not at all 9. Thoughts that you would be better off or of hurting yourself in some way: Not at all Total score: 0 If you checked off any problems, how difficult have these problems made it for you to do your work, take care of things at home, or get along with other people?: not difficult at all Source: Developed by Drs. Matty Cruz, Monika Guadarrama, Chris Marley and colleagues, with an educational deonna from [employer]. Depression screen completed yes Social History Living Situation History Marital Status: Single Lives With: Family Housing: House Tobacco History Smoking Status: Never smoker Second Hand Smoke Exposure: No Alcohol History Alcohol Intake: Never Domestic Abuse History Do You Feel Safe at Home: Yes Review of Systems Report any current symptoms Only answer those that you have currently: Past Medical History Past Medical History Have you ever been diagnosed with any of the following: Cardiology Problems Congestive Heart Failure: No Hypertension: Yes Respiratory Problems Chronic Obstructive Pulmonary Disease (COPD): No Asthma: No Genital/Urinary Problems Renal Disease: No Endocrine Problems Diabetes Mellitus Type 1: No Diabetes Mellitus Type 2: Yes Blood Problems Sickle Cell Disease: No Other Problems Hospitalization: Yes Autoimmune Disease: No Down Syndrome: No Developmental Delay: No Falls: No Anesthesia Reactions: No Human Immunodeficiency Virus (HIV): No Chicken Pox: No Measles: No Clostridium Difficile: No Cancer: No History of Present Illness HPI Narrative Patient examined at bedside today. Patient is coming to follow-up for punch biopsy results. Patient is wondering what his results were. He denies any chest pain or shortness of breath this time. He says that he took out his bartolo on his own. He has no other complaints at this time. He is wondering if he needs to reduce his Diflucan dose at this time. He still has not seen the neurologist at this time. Review of Systems Review of Systems Narrative Review of Systems: Constitutional: No fever, chills, fatigue, weakness, weight loss HEENT: No eye pain, vision loss, ear pain, hearing loss, dysphagia, Cardiovascular: No chest pain, palpitations, edema, pain with walking Respiratory: No cough, shortness of breath, wheezing GI: No NVD, abdominal pain, constipation, blood in stool, loss of appetite, heartburn Extremities: No presence of pitting edema MSK: No back pain, joint pain, joint swelling Neuro: No dizziness, numbness, weakness, headaches, seizures, tremors Psych: No anxiety, depression Objective/Exam Narrative Physical exam: General: AAOx3, NAD, HEENT: Moist mucous membranes, conjunctiva clear, EOMI, PERRLA, Cardiovascular: S1, S2, radial pulses +2 bilat, RRR Pulmonary: CTAB bilat no cough, no wheezing GI: No tenderness to light or deep palpitation, no guarding, rigidity, rebound tenderness or distension Extremities: No presence of trace or pitting edema in lower extremities bilaterally, dorsalis pedis pulses +2 bilaterally, multiple flat cutaneous lesions in LE and UE that are not raised erythematous or scaling, punch biopsy area skin healing and non erythematous at this time Neuro: AAOx3, no focal motor or sensory deficits in the UE or LE bilat Psych: Good judgement, thought and behavior Assessment & Plan Diagnosis / Problem List (1) Chronic pruritus: Status: Acute Plan: Continue with Zyrtec 10 mg every day (2) Meningitis: Status: Acute Assessment & Plan: At this point, since all cultures are negative and punch biopsy does not show granulomas or concern for disseminated cocci and just shows hyperkeratosis, meningitis was likely viral and not disseminated cocci meningitis Patient will need to follow-up with neurology, however will decrease Diflucan dose at this time Plan: Diflucan 400 mg once a day CBC within 1 week to monitor LFTs (3) Allergic rhinitis: Status: Acute Plan: Flonase nasal spray (4) Dysuria: Status: Acute Assessment & Plan: Did not complain of pain with urination, however said had june of passed a passed stone Plan: Urine analysis Orders: Orders Comprehensive Metabolic Panel 1 Week Urinalysis 1 Week Referrals Allergy and Immunology L29.9 - Pruritus, unspecified Neurology G03.9 - Meningitis, unspecified Office Procedures [facility] Level of Care Nursing/Assessment Patient Status: Established Patient Nursing Assessment/Reassessment: BP Monitoring, Medication Reconciliation, Update PMH in EMR and Vital Signs Coordination of Care: Consent,records obtained, informed consent, Education Simp Pt/Fam, Lab and Imaging orders, Results/Orders obtained and Staff clarify orders Established Patient Charge Established Patient Point Assignment: 95 Established Patient Point Charge: Level 3 (80-115) TB Screening LTBI Screening: Has patient traveled, was born, or resided for at least 1 month, or frequent border crossing into a country with an elevated TB rate: No Immunosuppression, current or planned (HIV, organ transplant, treated with biologic agents, steroids, or other immunosuppression medication): No Close contact to someone with infectious TB disease during lifetime: No Homelessness or incarceration, current or past: No TB testing indicated at this time (at least 1 yes above): No
== END 2024-09-18 15:04 | disposition home or self-care (01) ==
LOC: HODAHC 14:00
PROVIDERS: Supervising Provider Internal Medicine
DX: Z71.2 Person consulting for explanation of examination or test findings (principal); G03.9 Meningitis, unspecified; L29.9 Pruritus, unspecified; J30.9 Allergic rhinitis, unspecified; Z87.442 Personal history of urinary calculi
CPT/HCPCS: 99213; G0463

== ENCOUNTER 2024-10-02 14:01 | Outpatient (AMB) | payer MEDICAID, SELFPAY ==
[2024-10-02 14:30] VITALS: BP 135/79; PULSE 91; RESP 19; TEMP 36.8; O2SAT 97; BMI 25.2
--- NOTE | 2024-10-02 14:30 | PD.RESCLINIC ---
Vital Signs 10/02/24 14:30 Height 1.6 m Height Method Stated Weight 64.58 kg Weight Measurement Method Standing Scale BMI 25.2 BP 135/79 H Blood Pressure Source Automatic Cuff Blood Pressure Location Right Upper Arm Position Sitting Respiration 19 Pulse 91 Pulse Source Monitor Temp 98.2 F Temp Source Temporal Artery Scan Pulse Oximetry (%) 97 Oxygen Delivery Method Room Air Allergies/Meds Allergies & Medications Allergies No Known Allergies Allergy (Verified 09/18/24 14:22) MA Intake Visit Data Collection New Patient or Established: Established Patient (seen at [facility] within 3 years) Seen by Clinical Staff ONLY (RN/MA): No Reason for Visit:: FOLLOW UP AND REFILL MEDICATIONS Pain Present Currently: No Table Games Manager Required: No PCP or OBGYN visit in last 3 months: Yes Date of Last PCP or OBGYN visit: 09/18/24 Do You Feel Safe at Home: Yes Authorities Contacted: N/A Smoking Status Smoking Status: Never smoker Immunization / Flu Flu Vaccine in the Last 12 Months: No Flu Vaccine Exclusion Criteria: No Exclusion Criteria Past Medical History Past Medical History NEUROLOGIC: Negative Neurological Disorders CARDIAC: Positive Hypertension; Negative Cardiac Disorders or Congestive Heart Failure RESPIRATORY: Negative Chronic Obstructive Pulmonary Disease (COPD) or Asthma GASTROINTESTINAL: Negative Gastrointestinal Disorders GENITOURINARY: Negative Genitourinary Disorders or Renal Disease ENDOCRINE: Positive Endocrine Disorders and Diabetes Mellitus Type 2; Negative Diabetes Mellitus Type 1 HEMATOLOGIC: Negative Blood Disorders or Sickle Cell Disease OTHER HISTORY: Positive Hospitalization; Negative Autoimmune Disease, Down Syndrome, Developmental Delay, Falls, Anesthesia Reactions, Human Immunodeficiency Virus (HIV), Chicken Pox, Measles, Clostridium Difficile or Cancer Family History FAMILY HISTORY: Negative Family Respiratory Disorders, Family Cardiac Disorders, Family Gastrointestinal Problems or Family Cancer Social History SMOKING STATUS: Smoking status: Never smoker SECOND HAND EXPOSURE: second hand exposure: No ALCOHOL: Alcohol Intake: Never HOUSING: Housing: House LIVES WITH: Lives With: Spouse Patient Portal Questionaires PHQ-9 PHQ-2 Over the last 2 weeks, how often have you been bothered by any of the following problems? 1. Little interest or pleasure in doing things: not at all PHQ-9 8. Moving or speaking so slowly that other people could have noticed? - Or the opposite - being so fidgety or restless that you have been moving around a lot more than usual: not at all Source: Developed by Drs. Matty Cruz, Monika Guadarrama, Chris Marley and colleagues, with an educational deonna from [employer]. Social History Living Situation History Lives With: Family Housing: House Tobacco History Smoking Status: Never smoker Second Hand Smoke Exposure: No Alcohol History Alcohol Intake: Never Domestic Abuse History Do You Feel Safe at Home: Yes Review of Systems Report any current symptoms Only answer those that you have currently: Past Medical History Past Medical History Have you ever been diagnosed with any of the following: Cardiology Problems Congestive Heart Failure: No Hypertension: Yes Respiratory Problems Chronic Obstructive Pulmonary Disease (COPD): No Asthma: No Genital/Urinary Problems Renal Disease: No Endocrine Problems Diabetes Mellitus Type 1: No Diabetes Mellitus Type 2: Yes Blood Problems Sickle Cell Disease: No Other Problems Hospitalization: Yes Autoimmune Disease: No Down Syndrome: No Developmental Delay: No Falls: No Anesthesia Reactions: No Human Immunodeficiency Virus (HIV): No Chicken Pox: No Measles: No Clostridium Difficile: No Cancer: No History of Present Illness HPI Narrative Pt examined at bedside today. He reports he is doing well. He is complaining of his L hand having trouble flexing his middle two fingers He is asking about pending neurologic, opthmalogy referrals at this time. He has been taking his diflucan. He is requesting refills on his medicines including insulin as well. No other complaints at this time. Review of Systems Review of Systems Narrative Review of Systems: 12 point ROS is reviewed and otherwise negative unless stated directly in the HPI. Objective/Exam Narrative Physical exam: General: AAOx3, NAD, HEENT: Moist mucous membranes, conjunctiva clear, EOMI, PERRLA, Cardiovascular: S1, S2, radial pulses +2 bilat, RRR Pulmonary: CTAB bilat no cough, no wheezing GI: No tenderness to light or deep palpitation, no guarding, rigidity, rebound tenderness or distension Extremities: No presence of trace or pitting edema in lower extremities bilaterally, dorsalis pedis pulses +2 bilaterally, multiple flat cutaneous lesions in LE and UE that are not raised erythematous or scaling, punch biopsy area skin healing and non erythematous at this time Neuro: AAOx3, no focal motor or sensory deficits in the UE or LE bilat Psych: Good judgement, thought and behavior Assessment & Plan Diagnosis / Problem List (1) Diabetes mellitus with insulin therapy: Status: Acute Plan: Contining with current therapy, refills submitted Continue CGM Repeat a1c (2) Trigger finger: Status: Acute Qualifiers: Trigger finger location: middle finger Laterality: left Qualified Code(s): M65.332 - Trigger finger, left middle finger Assessment & Plan: Unlikely to be dupytrens at this time Plan: Orthopedic hand referral (3) Meningitis: Status: Acute Assessment & Plan: Viral vs cocci Repeat liver labs on diflucan wnl Plan: Pending Neuro referral Will stop diflucan therapy if repeat cocci serologies are negative upon next visit Orders: Orders Cocci Serology, Unk History 1 Month Ambulatory Hemoglobin A1C 1 Month Referrals Orthopedics M65.30 - Trigger finger, unspecified finger Office Procedures [facility] Level of Care Nursing/Assessment Patient Status: Established Patient Nursing Assessment/Reassessment: Medication Reconciliation, Update PMH in EMR and Vital Signs Coordination of Care: Complex Care and Chronic Disease 1-5, Consent,records obtained, informed consent, 1 Ins Authorization, Lab and Imaging orders and Results/Orders obtained Established Patient Charge Established Patient Point Assignment: 95 Established Patient Point Charge: Level 3 (80-115)
== END 2024-10-02 15:17 | disposition home or self-care (01) ==
LOC: HODAHC 14:01
PROVIDERS: Supervising Provider Internal Medicine
DX: M65.332 Trigger finger, left middle finger (principal); E11.9 Type 2 diabetes mellitus without complications; Z79.4 Long term (current) use of insulin; G03.9 Meningitis, unspecified
CPT/HCPCS: 99213; G0463

== ENCOUNTER → 2024-10-10 | Outpatient (CLI) | payer MEDICAID, SELFPAY ==
--- NOTE | 2024-10-10 08:30 | XR_ITS ---
Examination: CT middle inner ear, without contrast. 2-D coronal reconstructions. 2-D sagittal reconstructions. Date and time of exam: October 10, 2024, 0840 hours INDICATIONS: Onset of bilateral ear infections 6 months ago CTDI: vol (mGy): 14.2 DLP: (mGycm):181 Technique: Multiple 1.0 mm axial sections of the middle inner ears bilaterally. High-resolution 64 slice scanner utilized. 2-D coronal reconstructions 2-D sagittal reconstructions Low dose protocols were performed. One or more of the following dose reduction techniques were used; automated exposure control, adjustment of the mA and/or KV according to patient size, use of iterative reconstruction technique. Findings: Axial sections of the right demonstrate significantly reduced mastoid aeration. Jugular fossa and carotid canal do not appear remarkable. No deformity of the ossicles. Porus acusticus internus does not exhibit erosion. Cochlear apparatus unremarkable. Semicircular canals normal. External auditory canal open. Coronal reconstructions demonstrate no erosion of the scutum. No soft tissue mass in the attic or Prussak's space is seen. Ossicular mass intact. Axial sections of the left demonstrate significantly reduced mastoid aeration. Jugular fossa and carotid canal do not appear remarkable. No deformity of the ossicles. Porus acusticus internus does not exhibit erosion. Cochlear apparatus unremarkable. Semicircular canals normal. External auditory canal open Coronal reconstructions demonstrate no erosion of the scutum. No soft tissue mass in the attic or Prussak's space is seen. Ossicular mass intact. 15 mm retention cyst right maxillary antrum, significant maxillary antral sinus disease Roof of the mastoid air cells appear intact bilaterally. Impression: Prominent chronic bilateral mastoiditis. Negative for acute mastoiditis. Negative for otitis externa. Negative for otitis media.
== END | disposition home or self-care (01) ==
DX: H70.93 Unspecified mastoiditis, bilateral (principal); H70.13 Chronic mastoiditis, bilateral
CPT/HCPCS: 70480

== ENCOUNTER 2025-01-03 12:56 | Outpatient (AMB) | payer MEDICAID, SELFPAY ==
[2025-01-03 13:13] VITALS: BP 129/81; PULSE 84; RESP 16; TEMP 36.4; O2SAT 97; BMI 25.0
--- NOTE | 2025-01-03 13:13 | ACNOTE_ITS ---
Vital Signs 01/03/25 13:13 Height 1.6 m Height Method Stated Weight 64.127 kg Weight Measurement Method Standing Scale BMI 25.0 BP 129/81 Blood Pressure Source Automatic Cuff Blood Pressure Location Left Upper Arm Position Sitting Respiration 16 Pulse 84 Pulse Source Monitor Temp 97.5 F Temp Source Temporal Artery Scan Pulse Oximetry (%) 97 Oxygen Delivery Method Room Air Allergies/Meds Allergies & Medications Allergies No Known Allergies Allergy (Verified 01/03/25 13:14) Medication Reconciliation ibuprofen 600 mg tablet 600 mg PO Q8H PRN pain #20 tabs 02/29/24 [Rx Confirmed 01/03/25] triamcinolone acetonide 0.5 % topical cream 1 applic topical BID 1 month #15 grams 06/19/24 [Rx Confirmed 01/03/25] acetaminophen 325 mg tablet (Pain Relief (acetaminophen)) 325 mg PO QID PRN fev er or pain 1 month #90 tabs 08/29/24 [Rx Confirmed 01/03/25] fluconazole 100 mg tablet (Diflucan) 400 mg (4 x 100 mg) PO BID 1 month #240 tabs 08/29/24 [Rx Confirmed 01/03/25] cetirizine 10 mg tablet (Zyrtec) 10 mg PO QDAY PRN allergy symptoms #30 tabs 12/15/24 [Rx Confirmed 01/03/25] empagliflozin 10 mg tablet (Jardiance) 10 mg PO QAM #30 tabs 12/15/24 [Rx Confirmed 01/03/25] fluconazole 200 mg tablet 400 mg (2 x 200 mg) PO QDAY 1 month #60 tabs 12/15/24 [Rx Confirmed 01/03/25] fluticasone propionate 50 mcg/actuation nasal spray,suspension (Flonase Allergy Relief) 1 spray intranasal BID PRN allergy symptoms 1 month #16 grams 12/15/24 [Rx Confirmed 01/03/25] insulin aspart U-100 100 unit/mL (3 mL) subcutaneous pen (Novolog FlexPen U-100 Insulin aspart) 12 unit (0.12 mL) subcut TID #15 mL 12/15/24 [Rx Confirmed 01/03/25] insulin glargine 100 unit/mL (3 mL) subcutaneous pen (Lantus Solostar U-100 Insulin) 30 unit (0.3 mL) subcut QPM 1 month #15 mL 12/15/24 [Rx Confirmed 01/03/25] metformin 1,000 mg tablet 1,000 mg PO BID #60 tabs 12/15/24 [Rx Confirmed 01/03/25] sitagliptin phosphate 25 mg tablet (Januvia) 25 mg PO QDAY #30 tabs 12/15/24 [Rx Confirmed 01/03/25] montelukast 10 mg tablet 10 mg PO QHS 1 month #30 tabs 12/23/24 [Rx Confirmed 01/03/25] blood-glucose sensor (Dexcom G7 Sensor device) #1 ea 01/03/25 [Rx] losartan 25 mg tablet 25 mg PO QDAY #30 tabs 01/03/25 [Rx] MA Intake Visit Data Collection Pain Present Currently: No Pain scale:: 0 PCP or OBGYN visit in last 3 months: Yes Smoking Status Smoking Status: Never smoker Immunization / Flu Flu Vaccine in the Last 12 Months: No Flu Vaccine Exclusion Criteria: Refused by Patient Past Medical History Past Medical History NEUROLOGIC: Negative Neurological Disorders CARDIAC: Positive Hypertension; Negative Cardiac Disorders or Congestive Heart Failure RESPIRATORY: Negative Chronic Obstructive Pulmonary Disease (COPD) or Asthma GASTROINTESTINAL: Negative Gastrointestinal Disorders GENITOURINARY: Negative Genitourinary Disorders or Renal Disease ENDOCRINE: Positive Endocrine Disorders and Diabetes Mellitus Type 2; Negative Diabetes Mellitus Type 1 HEMATOLOGIC: Negative Blood Disorders or Sickle Cell Disease OTHER HISTORY: Positive Hospitalization; Negative Autoimmune Disease, Down Syndrome, Developmental Delay, Falls, Anesthesia Reactions, Human Immunodeficiency Virus (HIV), Chicken Pox, Measles, Clostridium Difficile or Cancer Family History FAMILY HISTORY: Negative Family Respiratory Disorders, Family Cardiac Disorders, Family Gastrointestinal Problems or Family Cancer Social History SMOKING STATUS: Smoking status: Never smoker SECOND HAND EXPOSURE: second hand exposure: No ALCOHOL: Alcohol Intake: Never HOUSING: Housing: House LIVES WITH: Lives With: Spouse Patient Portal Questionaires PHQ-9 PHQ-2 Over the last 2 weeks, how often have you been bothered by any of the following problems? 1. Little interest or pleasure in doing things: not at all PHQ-9 8. Moving or speaking so slowly that other people could have noticed? - Or the opposite - being so fidgety or restless that you have been moving around a lot more than usual: not at all Source: Developed by Drs. Matty Cruz, Monika GuadarramaChris and colleagues, with an educational deonna from [employer]. Social History Living Situation History Lives With: Family Housing: House Tobacco History Smoking Status: Never smoker Second Hand Smoke Exposure: No Alcohol History Alcohol Intake: Never Review of Systems Report any current symptoms Only answer those that you have currently: Past Medical History Past Medical History Have you ever been diagnosed with any of the following: Cardiology Problems Congestive Heart Failure: No Hypertension: Yes Respiratory Problems Chronic Obstructive Pulmonary Disease (COPD): No Asthma: No Genital/Urinary Problems Renal Disease: No Endocrine Problems Diabetes Mellitus Type 1: No Diabetes Mellitus Type 2: Yes Blood Problems Sickle Cell Disease: No Other Problems Hospitalization: Yes Autoimmune Disease: No Down Syndrome: No Developmental Delay: No Falls: No Anesthesia Reactions: No Human Immunodeficiency Virus (HIV): No Chicken Pox: No Measles: No Clostridium Difficile: No Cancer: No History of Present Illness HPI Narrative 10/02/2024: Pt examined at bedside today. He reports he is doing well. He is complaining of his L hand having trouble flexing his middle two fingers He is asking about pending neurologic, opthmalogy referrals at this time. He has been taking his diflucan. He is requesting refills on his medicines including insulin as well. No other complaints at this time. 01/03/2025: 44-year-old male with significant past medical history of insulin-dependent diabetes mellitus, hypertension, sarcoidosis diagnosed in 2021 currently not on treatment, valley fever diagnosed in 04/2024 when he presented to the hospital with cough and was started on fluconazole. Later once the treatment was stopped, noted to have left pleural effusion for which the treatment was started again on 07/2024.Later in August 2024, admitted in the hospital in view of fever and headaches, suspected to have meningitis at that time for which CSF analysis was done which showed normal glucose and high protein, Gram stain and CSF cultures are negative. Noted to have a skin lesions likely because of sarcoidosis, punch biopsy was done at that time, showed benign skin with hyperkeratosis. Currently, continuing fluconazole. Presented to the hospital for her routine follow-up on the labs and reported that his rash is still persistent, pending to see a outdoor adventure leader. Denies any other complaints. Review of Systems Review of Systems Systems Reviewed: All systems reviewed, normal except as documented Objective/Exam Narrative Physical exam: General: Awake. HEENT: Normocephalic, atraumatic, mucous membranes moist. Heart: Regular rate and rhythm, no murmurs. Lungs: Clear to auscultation with no wheezing or crackles. Abdomen: Soft, nondistended, nontender, positive bowel sounds. ?No guarding or rebound tenderness. Neurologic: Alert and oriented x3, no gross neurological deficit, and patient able to move all 4 extremities. Extremities: No edema. Skin: Diffuse papular rash is present and sratch baez due to itching is noted Assessment & Plan Diagnosis / Problem List (1) Coccidioidomycosis, pulmonary: Status: Chronic Assessment & Plan: Patient is still using fluconazole 400 mg once daily as of now Coccidioides immitis antibody by immunodiffusion-not detected and noted to have Coccidioides antibody titers within normal limits There is a suspicion of cocci meningitis per his PCP during his previous visit, discussed with him Plan: - Will continue till March and then stop the medication - Will continue to monitor LFTs - Follow-up in 3 months (2) Diabetes mellitus with insulin therapy: Status: Acute Assessment & Plan: - Currently on 12 units lispro at lunch, 30 units Lantus during meals, Januvia 25 mg once daily, metformin thousand twice daily - A1c is 6.5, elevated when compared to June 2024, A1c is 6 at that time. Plan: Contining with current therapy, refills submitted Continue CGM, refilled Diabetic diet is advised and continued physical activity. -Recommended to follow-up with health and safety representative and follow-up in 3 months in the clinic for further evaluation Office Procedures [facility] Level of Care Nursing/Assessment Patient Status: Established Patient Nursing Assessment/Reassessment: Medication Reconciliation, Update PMH in EMR and Vital Signs Coordination of Care: Complex Care and Chronic Disease 1-5, Complex Care/Chronic Disease 5 or more, Education Complex Pt/Fam, Lab and Imaging orders and Results/Orders obtained Established Patient Charge Established Patient Point Assignment: 130 Established Patient Point Charge: EP Level 4 (120-155)
== END 2025-01-03 13:43 | disposition home or self-care (01) ==
LOC: HODAHC 12:56
PROVIDERS: Supervising Provider Internal Medicine
DX: E11.9 Type 2 diabetes mellitus without complications (principal); B38.0 Acute pulmonary coccidioidomycosis; Z79.4 Long term (current) use of insulin; Z79.84 Long term (current) use of oral hypoglycemic drugs; I10 Essential (primary) hypertension
CPT/HCPCS: 99214; G0463